=== PATIENT | male | born 1940 | race Caucasian/White ===

== ENCOUNTER → 2017-08-27 12:32 | Outpatient (CLI) | payer MEDICARE, OTHER, SELFPAY ==
[2017-08-14 08:43] VITALS: TEMP 36.6
--- NOTE | 2017-08-27 | DI.ECHO.S_ITS ---
[facility]---------+ [facility] +---------+ : : [address] : : : : [id number] : : : : Phone: [phone] Echocardiogram Report + + :Name: MIGUELANGEL CALLOWAY Study Date: 08/27/2017 Height: 65 in : :[facility] Exam Location: [facility] Weight: 237 lb : : Gender: Male BSA: 2.1 m2 : :: 1940 Age: 77 yrs BP: 138/85 mmHg: :Reason For Study: CHEST PAIN : : Performed By: Dm Perez : :Referring: FRANCESCA CULLEN : + + Interpretation Summary Technically limited study. Mild concentric left ventricular hypertrophy with ejection fraction 60-65%. Grade I diastolic dysfunction. There is a pacemaker lead in the right ventricle. Moderately dilated left atrium. Moderate to severe aortic stenosis. The peak aortic velocity is 3.7 m/sec. Mild to moderate aortic regurgitation. Severe mitral annular calcification. The mean pressure gradient of the mitral valve is estimated to be 4.3 mmHg. The mitral valve area is estimated to be 2.0 cm2. The right ventricular systolic pressure is estimated at 35 mmHg assuming a right atrial pressure of 3 mm Hg. There is a large left-sided pleural effusion. Mild-moderately enlarged ascending aorta. Comparison is made with the echocardiogram of 02/07/16, calcification of the aortic valve and mitral annulus has worsen. The severity of aortic stenosis and mitral stenosi could be underestimated due to techimically limited study. Procedure: A two-dimensional transthoracic echocardiogram with color flow and Doppler was performed. The study quality was technically limited. Comparison is made with the echocardiogram of 02/07/16. The patient has a paced rhythm. Left Ventricle: The left ventricle is normal in size. There is mild concentric left ventricular hypertrophy. The ejection fraction is estimated to be 60-65%. There are no focal wall motion abnormalities. Assessment of diastolic parameters indicates a relaxation abnormality of the left ventricle, consistent with normal filling pressures. Right Ventricle: There is a pacemaker lead in the right ventricle. The right ventricle is normal in size and function. Atria: The left atrium is moderately dilated. Right atrial size is normal. The interatrial septum is intact with no evidence for an atrial septal defect. Mitral Valve: There is severe mitral annular calcification. The mean pressure gradient of the mitral valve is estimated to be 4.3 mmHg. The mitral valve area is estimated to be 2.0 cm2. There is trace mitral regurgitation. Aortic Valve: The aortic valve is moderately calcified. There is moderate to severe aortic stenosis. The peak aortic velocity is 3.7 m/sec. The aortic valve mean gradient is 31 mmHg. There is mild to moderate aortic regurgitation. Tricuspid Valve: The tricuspid valve is normal in structure and function. There is trace tricuspid regurgitation. The right ventricular systolic pressure is estimated at 35 mmHg assuming a right atrial pressure of 3 mm Hg. Pulmonic Valve: The pulmonic valve is normal in structure and function. There is trace pulmonic regurgitation. Great Vessels: The aortic root is normal size. The ascending aorta is mild- moderately enlarged. The pulmonary artery is normal size. Pericardium/ Pleura There is no pericardial effusion. There is a large left- sided pleural effusion. MMode/2D Measurements & Calculations LVOT diam: 2.2 cm LA A2 area: 30.8 cm2 Ao root diam: 3.3 cm LA A4 area: 22.7 cm2 Aortic Jxn: 2.9 cm LA length (vol): 6.4 cm asc Aorta Diam: 4.0 cm LA vol: 92.0 ml Ao Arch Diam (Prox Trans): 2.8 cm LA vol index: 43.3 ml/m2 RA long axis: 5.1 cm RA area: 14.1 cm2 RA vol: 33.3 ml RA : 15.6 ml/m2 IVC diam: 1.5 cm Doppler Measurements & Calculations Ao V2 max: 372.0 cm/sec LVOT Max Sohail: 121.4 cm/sec Ao V2 mean: 253.9 cm/sec LV V1 max P.9 mmHg Ao max P.4 mmHg LV V1 VTI: 30.7 cm Ao mean P.5 mmHg ROSANNA(I,D): 1.3 cm2 Ao V2 VTI: 84.5 cm ROSANNA(V,D): 1.2 cm2 sev ratio: 0.36 ROSANNA indexed to BSA (cm^2/m^2): 0.62 MV E max sohail: 117.2 cm/sec TR max sohail: 283.4 cm/sec MV A max sohail: 151.7 cm/sec TR max P.1 mmHg MV E/A: 0.77 PA V2 max: 76.8 cm/sec Med Peak E' Sohail: 4.5 cm/sec PA V2 mean: 59.1 cm/sec E/E' med: 25.8 PA mean P.5 mmHg MV dec time: 0.36 sec PA pr(Accel): 31.6 mmHg MV P1/2t: 108.8 msec PA Accel Time: 0.11 sec MVA(VTI): 2.5 cm2 MV V2 mean: 98.0 cm/sec MV P1/2t max sohail: 117.5 cm/sec MV mean P.3 mmHg MVA(P1/2t): 2.0 cm2 MV V2 VTI: 45.1 cm Electronically signed by: Kosta Bledsoe on Reading Physician:08/27/2017 05:42 PM
--- NOTE | 2017-08-27 | DI.US.S_ITS ---
PROCEDURE: US CAROTID DOPPLER BI INDICATIONS: CHEST PAIN CENTAL RETINAL ARTERY OCCLUSION TECHNIQUE: Color and pulse Doppler interrogation was performed of both carotid systems, with image documentation and velocity measurements. COMPARISON: [facility], , US CAROTID DOPPLER, 04/22/2004, 13:44. FINDINGS: Stenosis calculations are based on SRU (Society of Radiologists in Ultrasound) criteria. Right side: Brachial blood pressure: 133/75 mm Hg. Common carotid artery peak systolic velocity: 61 cm/sec. Internal carotid artery peak systolic velocity: 63 cm/sec. Internal carotid artery end diastolic velocity: 14 cm/sec. External carotid artery peak systolic velocity: 77 cm/sec. ICA/CCA peak systolic ratio: 1.0. Calhoun scale imaging description: Mild scattered plaque. Percent internal carotid artery stenosis: Less than 50%. Vertebral artery: Flow direction is antegrade. Left side: Brachial blood pressure: 122/74 mm Hg. Common carotid artery peak systolic velocity: 74 cm/sec. Internal carotid artery peak systolic velocity: 59 cm/sec. Internal carotid artery end diastolic velocity: 13 cm/sec. External carotid artery peak systolic velocity: 75 cm/sec. ICA/CCA peak systolic ratio: 0.8. Calhoun scale imaging description: Umgi-[id number]-hyhthcuz scattered plaque. Percent internal carotid artery stenosis: Less than 50%. Vertebral artery: Flow direction is antegrade. IMPRESSION: Less than 50% bilateral internal carotid artery stenosis. Dictated by: Adria KHALIL Interpreted: Michael Soria MD on 08/27/2017 at 14:38 Approved by: Michael Soria M.D. on 08/27/2017 at 15:35
== END ==
PROVIDERS: PCP Family Medicine; Visit Provider Family Medicine
DX: R07.9 Chest pain, unspecified (principal); H34.9 Unspecified retinal vascular occlusion
CPT/HCPCS: 93306; 93880

== ENCOUNTER → 2017-09-03 11:00 | Outpatient (CLI) | payer MEDICARE, OTHER, SELFPAY ==
--- NOTE | 2017-09-03 | DI.RAD.S_ITS ---
PROCEDURE: XR CHEST 2V INDICATIONS: HEART FAILURE TECHNIQUE: 2 views of the chest were acquired. COMPARISON: [facility], CT, THORAX WITH CONTRAST, 05/11/2016, 8:53. [facility], CT, THORAX WITH CONTRAST, 02/24/2016, 13:21. [facility], CR, CHEST 2 VIEW, 02/11/2016, 10:32. [facility], , CHEST 2 VIEW, 08/06/2017, 10:23. FINDINGS: Surgical changes and devices: Right humeral arthroplasty and pacemaker unchanged. Lungs and pleura: There is persistent appearance of opacification within the left lower lung field as well as patchy areas in the right base. Overall appearance of increased pulmonary vascularity is present. It is noted that this has been unchanged compared to 08/06/17 but increased compared to CT chest of 05/11/16. Mediastinum: Mediastinal contours are normal. Heart size is enlarged. Bones and chest wall: No suspicious bony abnormalities. Soft tissues appear unremarkable. IMPRESSION: Persistent and increased left lower and right lower lobe opacities as above. While appearance could be related to chronic loculated effusions and underlying edema, mass lesion cannot be excluded, given the length of time that abnormality has persisted. As previously noted, CT chest with contrast is recommended for additional evaluation. Dictated by: Andreina Mcgrath M.D. on 09/03/2017 at 13:32 Approved by: Andreina Mcgrath M.D. on 09/03/2017 at 13:35
== END ==
PROVIDERS: PCP Family Medicine; Visit Provider Family Medicine
DX: I50.9 Heart failure, unspecified (principal)
CPT/HCPCS: 71046

== ENCOUNTER → 2017-09-25 10:12 | Outpatient (CLI) | payer MEDICARE, OTHER, SELFPAY ==
--- NOTE | 2017-09-25 | DI.CT.S_ITS ---
PROCEDURE: CT CHEST W CON INDICATIONS: CONGESTIVE HEART FAILURE. SHORTNESS OF BREATH TECHNIQUE: After the administration of intravenous contrast, 5 mm thick sections acquired from the pulmonary apices to the posterior costophrenic angles. 7 mm thick coronal and sagittal MIP reformats were acquired. For radiation dose reduction, the following was used: automated exposure control, adjustment of mA and/or kV according to patient size. COMPARISON: , CT, THORAX WITH CONTRAST, 05/11/2016, 8:53. , CR, XR CHEST 2V, 09/03/2017, 11:09. FINDINGS: Image quality: Excellent. Lungs and pleura: No acute air space opacities but there is progression of the basilar atelectasis associated with the enlarging left pleural effusion (now large). No pleural masses are found but there is slight pleural enhancement and thickening along the left effusion. Scant right effusion is present. 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 No pneumothorax. Central and peripheral airways are patent and generally normal in caliber but the left lower lobe bronchi appear mildly compressed by the chronic atelectasis. Mediastinum: Heart size is not significantly enlarged and pacemaking leads are present. Dystrophic calcification appears present within portions of the myocardium of the left ventricle. No pericardial effusion. There is stable appearing partially calcified mediastinal and hilar adenopathy by size criteria, presumably granulomatous in origin. Thoracic aorta and central pulmonary arteries are normal in size. Esophagus is normal in caliber. No hiatal hernia. Bones and chest wall: No suspicious bony lesions. No vertebral body compression fractures. No axillary or supraclavicular adenopathy by size criteria. Thyroid gland appears normal where well visualized. Abdomen: Visualized upper abdominal solid organs appear normal. Upper abdominal bowel loops are normal in caliber. Calcified gallstones within the gallbladder lumen noted. IMPRESSION: 1. Continued increase in the left pleural effusion, now large and with increased compressive atelectasis involving the left lung parenchyma. The effusion shows a subtle rim enhancement pattern, indicating exudative effusion, but no dominant mass is seen. 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 Thoracentesis for cytology may be warranted. 2. Cardiac pacemaking device and leads in normal position, partially calcified left ventricular myocardium. This presumably is dystrophic in origin. No sign of acute CHF at this time. 3. Granulomatous disease is the likely cause for stable appearing mild to moderate adenopathy involving the mediastinum and hilar lymph nodes, partially calcified. 4. Calcified gallstones are present within the gallbladder lumen, partially visualized, no acute cholecystitis suspected. Dictated by: Michael Soria M.D. on 09/25/2017 at 11:12 Approved by: Michael Soria M.D. on 09/25/2017 at 11:22
== END ==
PROVIDERS: PCP Family Medicine; Visit Provider Family Medicine
DX: I50.9 Heart failure, unspecified (principal); R06.02 Shortness of breath; J98.11 Atelectasis; J84.10 Pulmonary fibrosis, unspecified
CPT/HCPCS: 71260

== ENCOUNTER → 2017-12-26 08:23 | Outpatient (CLI) | payer MEDICARE, OTHER, SELFPAY ==
--- NOTE | 2017-12-26 08:26 | DI.RAD.S_ITS ---
PROCEDURE: XR CERVICAL SPINE 2V OR 3V INDICATIONS: CERVICALGIA/Heart failure, unspecified TECHNIQUE: 4 view(s) of the cervical spine were acquired. COMPARISON: None. FINDINGS: Bones: No fractures or dislocations to the T1 level. The lateral masses of C1 appear intact on the odontoid view. No suspicious bony lesions. Decreased intervertebral disc space and degenerative endplate changes are noted as well cervical spine. Bilateral facet hypertrophic changes also noted. Soft tissues: No prevertebral soft tissue swelling. IMPRESSION: Moderate degenerative disc disease throughout cervical spine. No acute compression fracture or traumatic spondylolisthesis. Dictated by: Phillip Encarnacion M.D. on 12/26/2017 at 11:39 Approved by: Phillip Encarnacion M.D. on 12/26/2017 at 11:50
--- NOTE | 2017-12-26 08:26 | DI.RAD.S_ITS ---
PROCEDURE: XR CHEST 2V INDICATIONS: CERVICALGIA/Heart failure, unspecified TECHNIQUE: 2 views of the chest were acquired. COMPARISON: [facility], CR, XR CHEST 2V, 09/03/2017, 11:09. FINDINGS: Surgical changes and devices: Left chest wall cardiac device position is unchanged. Lungs and pleura: Moderate left pleural effusion is seen, unchanged from previous study. There is pulmonary edema. Underlying left lower lobe infiltrate cannot be excluded. No gross pneumothorax. Mediastinum: Mediastinal contours are normal. Heart size is enlarged. Bones and chest wall: No suspicious bony abnormalities. Soft tissues appear unremarkable. IMPRESSION: Congestion and pulmonary edema. Persistent moderate left pleural effusion. No gross pneumothorax. Dictated by: Phillip Encarnacion M.D. on 12/26/2017 at 11:38 Approved by: Phillip Encarnacion M.D. on 12/26/2017 at 11:39
== END ==
PROVIDERS: PCP Family Medicine; Visit Provider Family Medicine
DX: M54.2 Cervicalgia (principal); I50.1 Left ventricular failure, unspecified; M50.30 Other cervical disc degeneration, unspecified cervical region
CPT/HCPCS: 71046; 72040

== ENCOUNTER 2018-03-25 12:07 | Observation (INO) | payer MEDICARE, OTHER, SELFPAY ==
[2018-03-25 12:17] VITALS: BP 142/90; PULSE 97; RESP 24; TEMP 36.3; O2SAT 96; BMI 35.2
[2018-03-25] MEDS: PANTOPRAZOLE 40 MG VIAL IV ×2 (12:38→22:00)
[2018-03-25 12:44] LABS: Add Manual Diff / Slide Review NO; Basophils Percent Auto 0.5 % (0-2); Eosinophils Percent Auto 1.3 % (2-4); Hematocrit 33.6 % (41-53); Hemoglobin 11.1 g/dL (13.5-17.5); Lymphocytes Percent Auto 10.8 % (25-40); Mean Corpuscular Hemoglobin 29.4 PG (26-34); Mean Corpuscular Volume 88.9 fL (80-100); Neutrophils Absolute Auto 5000 /uL (3000-5900); Neutrophils Percent Auto 76.4 % (50-75); Platelet Count 277 X10^3/uL (150-400); Red Blood Cell Count 3.78 X10^6/uL (4.5-5.9); Red Cell Distribution Width 14.5 % (11.6-14.8); White Blood Cell Count 6.6 X10^3/uL (4.5-11.0)
[2018-03-25 12:49] LABS: Alanine Aminotransferase 18 IU/L (21-72); Albumin 3.9 g/dL (3.5-5.0); Albumin Globulin Ratio 1.2 (1.0-2.8); Alkaline Phosphatase 75 U/L (38-126); Aspartate Aminotransferase 25 IU/L (17-59); BUN Creatinine Ratio 27.3 (6-22); Bilirubin Total 0.3 mg/dL (0.2-1.3); Blood Urea Nitrogen 30 mg/dL (9-20); Calcium 9.2 mg/dL (8.4-10.2); Carbon Dioxide 31 mmol/L (22-32); Chloride 98 mmol/L (98-107); Estimated Glomerular Filt Rate > 60.0 mL/min (>60); Globulin 3.3 g/dL (1.7-4.1); Glucose 111 mg/dL (80-110); HEMOLYSIS < 15 (0-50); Potassium 3.7 mmol/L (3.4-5.1); Sodium 144 mmol/L (137-145); Total Protein 7.2 g/dL (6.3-8.2)
[2018-03-25 12:54] LABS: INR 1.2 (0.9-1.3); Prothrombin Time 13.6 SECONDS (10.1-12.7)
[2018-03-25 12:57] LABS: PTT Partial Thromboplastin Tim 31 SECONDS (26.4-36.2)
--- NOTE | 2018-03-25 12:58 | ED.GIBLEED ---
HPI - GI Bleed General Chief complaint: GI Bleed Stated complaint: states My colon sprung a leak Time Seen by Provider: 03/25/18 12:15 Source: patient Mode of arrival: ambulatory Limitations: no limitations History of Present Illness HPI Narrative: 77M nonsmoker presents to the emergency department with dark and tarry stools today. Patient has a history asbestos exposure and colon cancer with 2 prior GI bleeds that were diverticular in nature. He has no reports of bloody vomit and is not dizzy nor weak or lightheaded. He is a bit short of breath but is unable to tell if that is due to his chronic lung problems or as a consequence his presumed GI bleed. He had some constipation a few days ago and presents today melena. Patient has no history of significant alcohol abuse, denies the use of NSAIDs but does take a baby aspirin daily. MD complaint: melena Onset (ago): hour(s) Severity: moderate Relieving factors: none Exacerbating factors: none Context: history of GI bleed (2x, both diverticular in nature) Associated symptoms: denies other symptoms Treatments Prior to Arrival: none Related Data Home Medications Medication Instructions Recorded Confirmed multivitamin 1 tab PO DAILY #0 04/13/11 03/25/18 fluticasone-salmeterol [Advair 1 puff INHALATION PRN #0 01/17/12 03/25/18 Diskus] clobetasol 1 applic TOPICAL DIRECTED 08/14/17 03/25/18 furosemide 80 mg PO DAILY 08/14/17 03/25/18 promethazine-codeine 5 ml PO PRN PRN 08/14/17 03/25/18 spironolactone 1 dose PO DIRECTED 08/14/17 03/25/18 terazosin 2 mg PO DAILY 03/25/18 03/25/18 Allergies Allergy/AdvReac Type Severity Reaction Status Date / Time No Known Drug Allergies Allergy Verified 08/14/17 10:39 Review of Systems Review of Systems All systems reviewed & are unremarkable except as noted in HPI and below Constitutional Denies chills, Denies fever(s), Denies lethargy and Denies weakness Eyes Denies change in vision, Denies eye discharge, Denies irritation and Denies loss of vision ENT Ears, Nose, Mouth, and Throat: Denies change in voice, Denies neck pain and Denies sore throat Cardiovascular Denies chest pain, Denies irregular heart rhythm, Denies lightheadedness, Denies palpitations, Denies dyspnea, Denies dyspnea on exertion and Denies orthopnea Respiratory Denies cough, Denies dyspnea, Denies dyspnea on exertion and Denies wheezing Gastrointestinal Gastrointestinal: Denies abdominal pain, Reports melena, Denies change in bowel habits, Denies diarrhea, Denies nausea and Denies vomiting Genitourinary Denies hematuria, Denies flank pain, Denies urinary incontinence and Denies urinary urgency Musculoskeletal Denies neck pain Integumentary/Breasts Denies pruritus, Denies erythema, Denies rash and Denies wounds Neurologic Denies confusion, Denies loss of vision and Denies weakness Psychiatric Denies anxiety, Denies confusion, Denies depression, Denies homicidal ideation and Denies suicidal ideation Endocrine Denies palpitations Hematologic/Lymphatic Denies easy bruising Allergic/Immunologic Denies wheezing [facility] Social History Smoking Status: Never smoker Exam Narrative Exam Narrative: GENERAL: 77M in no obvious significant distress HEAD: Atraumatic. Normocephalic. No temporal or scalp tenderness. EYES: Pupils equal round and reactive. Extraocular motions intact. No scleral icterus. No injection or drainage. ENT: Nose without bleeding, purulent drainage or septal hematoma. Throat without erythema, tonsillar hypertrophy or exudate. Uvula midline. Airway patent. NECK: Trachea midline. No JVD or lymphadenopathy. Supple, nontender, no meningeal signs. CARDIOVASCULAR: Regular rate and rhythm without murmurs, gallops, or rubs. RESPIRATORY: Clear to auscultation. Breath sounds equal bilaterally. No wheezes, rales, or rhonchi. GASTROINTESTINAL: Soft pretuberant abdomen with increased bowel sounds x4 quadrants RECTAL. No fissure, hemorrhoids. Melena noted, Heme+ EXTREMITIES: No clubbing, cyanosis, or edema. No joint tenderness, effusion, or edema noted. BACK: Nontender without deformity or crepitance. No flank tenderness. NEURO: AOx3. SKIN: No rash or erythema. Initial Vital Signs Initial Vital Signs: Vital Signs Temperature 97.4 F L 03/25/18 12:17 Pulse Rate 97 H 03/25/18 12:17 Respiratory Rate 24 03/25/18 12:17 Blood Pressure 142/90 H 03/25/18 12:17 Pulse Oximetry 96 03/25/18 12:17 Course Orders Ordered: ED Orders 03/25/18 12:21 Complete Blood Count AUTO DIFF Stat Comprehensive Metabolic Panel Stat Partial Thromboplastin Time Stat Prothrombin Time INR Stat Type and Screen Stat Discontinued Medications Ondansetron HCl (Zofran) 4 mg IV NOW ONE Stop: 03/25/18 12:16 Last Admin: 03/25/18 12:38 Dose: Not Given Pantoprazole Sodium (Protonix) 40 mg IV NOW ONE Stop: 03/25/18 12:16 Last Admin: 03/25/18 12:38 Dose: 40 mg Consultations Consultation #1: Call to Dr. Sullivan whom is happy to be involved in patient care as customer care voice consultant and requests official consult from hospitalist. Consultation #2: Hospitalist happy to accept Vital Signs - 8 hr 03/25/18 12:17 03/25/18 13:06 Temperature 97.4 F L Pulse Rate 97 H 89 Respiratory Rate 24 22 Blood Pressure 142/90 H Blood Pressure [Left Arm] 123/64 Pulse Oximetry 96 100 MDM - GI Bleed Lab Data Result diagrams: 03/25/18 12:21 03/25/18 12:21 Lab Results 03/25/18 03/25/18 03/25/18 Range/Units 12:21 12:21 12:21 WBC 6.6 (4.5-11.0) X10^3/uL RBC 3.78 L (4.5-5.9) X10^6/uL Hgb 11.1 L (13.5-17.5) g/dL Hct 33.6 L (41-53) % MCV 88.9 (80-100) fL MCH 29.4 (26-34) PG MCHC 33.0 (30-36) % RDW 14.5 (11.6-14.8) % Plt Count 277 (150-400) X10^3/uL Neut % (Auto) 76.4 H (50-75) % Lymph % (Auto) 10.8 L (25-40) % Bee % (Auto) 11.0 (3-14) % Eos % (Auto) 1.3 L (2-4) % Baso % (Auto) 0.5 (0-2) % Neut # (Auto) 5000 (7071-9471) /uL PT 13.6 H (10.1-12.7) SECONDS INR 1.2 (0.9-1.3) APTT 31 (26.4-36.2) SECONDS Sodium 144 (137-145) mmol/L Potassium 3.7 (3.4-5.1) mmol/L Chloride 98 (98-107) mmol/L Carbon Dioxide 31 (22-32) mmol/L BUN 30 H (9-20) mg/dL Creatinine 1.10 (0.66-1.25) mg/dL Estimated GFR > 60.0 (>60) mL/min BUN/Creatinine Ratio 27.3 H (6-22) Glucose 111 H (80-110) mg/dL Calcium 9.2 (8.4-10.2) mg/dL Total Bilirubin 0.3 (0.2-1.3) mg/dL AST 25 (17-59) IU/L ALT 18 L (21-72) IU/L Alkaline Phosphatase 75 (38-126) U/L Total Protein 7.2 (6.3-8.2) g/dL Albumin 3.9 (3.5-5.0) g/dL Globulin 3.3 (1.7-4.1) g/dL Albumin/Globulin Ratio 1.2 (1.0-2.8) Discharge Plan Departure Patient Disposition: Admitted As Inpatient Clinical Impression: Acute upper gastrointestinal bleeding
[2018-03-25 13:06] VITALS: BP 123/64; PULSE 89; RESP 22; O2SAT 100
--- NOTE | 2018-03-25 13:22 | ED_ITS ---
HPI - GI Bleed General Chief complaint: GI Bleed Stated complaint: states My colon sprung a leak Time Seen by Provider: 03/25/18 12:15 Source: patient Mode of arrival: ambulatory Limitations: no limitations History of Present Illness HPI Narrative: 77M nonsmoker presents to the emergency department with dark and tarry stools today. Patient has a history asbestos exposure and colon cancer with 2 prior GI bleeds that were diverticular in nature. He has no reports of bloody vomit and is not dizzy nor weak or lightheaded. He is a bit short of breath but is unable to tell if that is due to his chronic lung problems or as a consequence his presumed GI bleed. He had some constipation a few days ago and presents today melena. Patient has no history of significant alcohol abuse , denies the use of NSAIDs but does take a baby aspirin daily. MD complaint: melena Onset (ago): hour(s) Severity: moderate Relieving factors: none Exacerbating factors: none Context: history of GI bleed (2x, both diverticular in nature) Associated symptoms: denies other symptoms Treatments Prior to Arrival: none Related Data Home Medications Medication Instructions Recorded Confirmed multivitamin 1 tab PO DAILY #0 04/13/11 03/25/18 fluticasone-salmeterol [Advair 1 puff INHALATION PRN #0 01/17/12 03/25/18 Diskus] clobetasol 1 applic TOPICAL DIRECTED 08/14/17 03/25/18 furosemide 80 mg PO DAILY 08/14/17 03/25/18 promethazine-codeine 5 ml PO PRN PRN 08/14/17 03/25/18 spironolactone 1 dose PO DIRECTED 08/14/17 03/25/18 terazosin 2 mg PO DAILY 03/25/18 03/25/18 Allergies Allergy/AdvReac Type Severity Reaction Status Date / Time No Known Drug Allergies Allergy Verified 08/14/17 10:39 Review of Systems Review of Systems All systems reviewed & are unremarkable except as noted in HPI and below Constitutional Denies chills, Denies fever(s), Denies lethargy and Denies weakness Eyes Denies change in vision, Denies eye discharge, Denies irritation and Denies loss of vision ENT Ears, Nose, Mouth, and Throat: Denies change in voice, Denies neck pain and Denies sore throat Cardiovascular Denies chest pain, Denies irregular heart rhythm, Denies lightheadedness, Denies palpitations, Denies dyspnea, Denies dyspnea on exertion and Denies orthopnea Respiratory Denies cough, Denies dyspnea, Denies dyspnea on exertion and Denies wheezing Gastrointestinal Gastrointestinal: Denies abdominal pain, Reports melena, Denies change in bowel habits, Denies diarrhea, Denies nausea and Denies vomiting Genitourinary Denies hematuria, Denies flank pain, Denies urinary incontinence and Denies urinary urgency Musculoskeletal Denies neck pain Integumentary/Breasts Denies pruritus, Denies erythema, Denies rash and Denies wounds Neurologic Denies confusion, Denies loss of vision and Denies weakness Psychiatric Denies anxiety, Denies confusion, Denies depression, Denies homicidal ideation and Denies suicidal ideation Endocrine Denies palpitations Hematologic/Lymphatic Denies easy bruising Allergic/Immunologic Denies wheezing [facility] Social History Smoking Status: Never smoker Exam Narrative Exam Narrative: GENERAL: 77M in no obvious significant distress HEAD: Atraumatic. Normocephalic. No temporal or scalp tenderness. EYES: Pupils equal round and reactive. Extraocular motions intact. No scleral icterus. No injection or drainage. ENT: Nose without bleeding, purulent drainage or septal hematoma. Throat without erythema, tonsillar hypertrophy or exudate. Uvula midline. Airway patent. NECK: Trachea midline. No JVD or lymphadenopathy. Supple, nontender, no meningeal signs. CARDIOVASCULAR: Regular rate and rhythm without murmurs, gallops, or rubs. RESPIRATORY: Clear to auscultation. Breath sounds equal bilaterally. No wheezes , rales, or rhonchi. GASTROINTESTINAL: Soft pretuberant abdomen with increased bowel sounds x4 quadrants RECTAL. No fissure, hemorrhoids. Melena noted, Heme+ EXTREMITIES: No clubbing, cyanosis, or edema. No joint tenderness, effusion, or edema noted. BACK: Nontender without deformity or crepitance. No flank tenderness. NEURO: AOx3. SKIN: No rash or erythema. Initial Vital Signs Initial Vital Signs: Vital Signs Temperature 97.4 F L 03/25/18 12:17 Pulse Rate 97 H 03/25/18 12:17 Respiratory Rate 24 03/25/18 12:17 Blood Pressure 142/90 H 03/25/18 12:17 Pulse Oximetry 96 03/25/18 12:17 Course Orders Ordered: ED Orders 03/25/18 12:21 Complete Blood Count AUTO DIFF Stat Comprehensive Metabolic Panel Stat Partial Thromboplastin Time Stat Prothrombin Time INR Stat Type and Screen Stat Discontinued Medications Ondansetron HCl (Zofran) 4 mg IV NOW ONE Stop: 03/25/18 12:16 Last Admin: 03/25/18 12:38 Dose: Not Given Pantoprazole Sodium (Protonix) 40 mg IV NOW ONE Stop: 03/25/18 12:16 Last Admin: 03/25/18 12:38 Dose: 40 mg Consultations Consultation #1: Call to Dr. Sullivan whom is happy to be involved in patient care as hr business partner consultant and requests official consult from hospitalist. Consultation #2: Hospitalist happy to accept Vital Signs - 8 hr 03/25/18 12:17 03/25/18 13:06 Temperature 97.4 F L Pulse Rate 97 H 89 Respiratory Rate 24 22 Blood Pressure 142/90 H Blood Pressure [Left Arm] 123/64 Pulse Oximetry 96 100 MDM - GI Bleed Lab Data Result diagrams: 03/25/18 12:21 03/25/18 12:21 Lab Results 03/25/18 03/25/18 03/25/18 Range/Units 12:21 12:21 12:21 WBC 6.6 (4.5-11.0) X10^3/uL RBC 3.78 L (4.5-5.9) X10^6/uL Hgb 11.1 L (13.5-17.5) g/dL Hct 33.6 L (41-53) % MCV 88.9 (80-100) fL MCH 29.4 (26-34) PG MCHC 33.0 (30-36) % RDW 14.5 (11.6-14.8) % Plt Count 277 (150-400) X10^3/uL Neut % (Auto) 76.4 H (50-75) % Lymph % (Auto) 10.8 L (25-40) % [place] % (Auto) 11.0 (3-14) % Eos % (Auto) 1.3 L (2-4) % Baso % (Auto) 0.5 (0-2) % Neut # (Auto) 5000 (7854-0314) /uL PT 13.6 H (10.1-12.7) SECONDS INR 1.2 (0.9-1.3) APTT 31 (26.4-36.2) SECONDS Sodium 144 (137-145) mmol/L Potassium 3.7 (3.4-5.1) mmol/L Chloride 98 (98-107) mmol/L Carbon Dioxide 31 (22-32) mmol/L BUN 30 H (9-20) mg/dL Creatinine 1.10 (0.66-1.25) mg/dL Estimated GFR > 60.0 (>60) mL/min BUN/Creatinine Ratio 27.3 H (6-22) Glucose 111 H (80-110) mg/dL Calcium 9.2 (8.4-10.2) mg/dL Total Bilirubin 0.3 (0.2-1.3) mg/dL AST 25 (17-59) IU/L ALT 18 L (21-72) IU/L Alkaline Phosphatase 75 (38-126) U/L Total Protein 7.2 (6.3-8.2) g/dL Albumin 3.9 (3.5-5.0) g/dL Globulin 3.3 (1.7-4.1) g/dL Albumin/Globulin Ratio 1.2 (1.0-2.8) Discharge Plan Departure Patient Disposition: Admitted As Inpatient Clinical Impression: Acute upper gastrointestinal bleeding
[2018-03-25 13:50] VITALS: BP 129/67; PULSE 80; RESP 16; TEMP 36.1; O2SAT 97
--- NOTE | 2018-03-25 14:59 | PC.NURSE ---
pt arrived to floor via stretcher from ER. Pt is a&o able to make needs known. Denies any pain or discomfort. 1 SBA transfer from stretcher to bed. c/o feeling light headed, VSS, 96%RA, denies any nausea or GI upset. oriented to room and call light. Bed alarm on at this time.
[2018-03-25 15:00] VITALS: BMI 34.6
[2018-03-25 16:05] VITALS: BP 133/79; PULSE 74; RESP 14; TEMP 36.6; O2SAT 97
[2018-03-25] MEDS: SODIUM CHLORIDE 0.9% 1,000 ML 100 ML IV (16:11)
--- NOTE | 2018-03-25 17:06 | P.HP_ITS ---
History of Present Illness Date Patient Seen: 03/25/18 Time Patient Seen: 16:52 Chief complaint: states My colon sprung a leak Narrative: PATIENT WITH A PMH SIGNIFICANT FOR HTN, COMPLETE HEART BLOCK S/P AICD PLACEMENT, PROSTATE CA, AND HLD PRESENTED TO THE ED WITH REPORT OF BLACK BLOODY MATERIAL PER ECTUM HE STATED THAT THIS HAPPENED THIS AM AND DUE TO HIS PREVIOUS HX, HE CAME TO THE ED FOR FURTHER ASSESSMENT HE REPORTED A COLONOSCOPY IN 2001 WITH POLYPS WELL A REPEAT 5 YEARS LATER WHICH WAS WITHOUT ANY SIGNIFICANT FINDINGS DENIED ANY SIGNIFICANT WT LOSS OR GAIN NO RECENT ILLNESS OR CHANGE TO HIS MEDS NO OTHER COMPLAINTS SUCH N/D/DIARRHEA OR CONSTIPATIONS Patient History Medical History Asbestos pleurisy (Acute) Complete heart block (Acute) HLD (hyperlipidemia) (Acute) HTN (hypertension) (Acute) Prostate CA (Acute) Surgical History AICD (automatic cardioverter/defibrillator) present (Acute) H/O prostatectomy (Acute) Family & Social History Family History: Reviewed 03/25/18 by Swathi Osullivan DO Safety & Behavioral: Feels Safe in Current Yes Environment Tobacco & Substance use: Smoking Status Never smoker alcohol intake frequency 0-2 drinks per day Substance Use Type does not use Meds Home Medications Medication Instructions Recorded Confirmed Type multivitamin 1 tab PO DAILY #0 04/13/11 03/25/18 History fluticasone-salmeterol [Advair 1 puff INHALATION PRN #0 01/17/12 03/25/18 History Diskus] clobetasol 1 applic TOPICAL DIRECTED 08/14/17 03/25/18 History furosemide 80 mg PO DAILY 08/14/17 03/25/18 History promethazine-codeine 5 ml PO PRN PRN 08/14/17 03/25/18 History spironolactone 1 dose PO DIRECTED 08/14/17 03/25/18 History terazosin 2 mg PO DAILY 03/25/18 03/25/18 History Allergies Allergy/AdvReac Type Severity Reaction Status Date / Time No Known Drug Allergies Allergy Verified 08/14/17 10:39 Review of Systems Review of Systems All systems reviewed & are unremarkable except as noted in HPI and below Exam Vital Signs (past 8 hours): - 03/25/18 12:17 03/25/18 13:06 03/25/18 13:50 Temperature 97.4 F L 97.0 F L Pulse Rate 97 H 89 80 Respiratory Rate 24 22 16 Blood Pressure 142/90 H 129/67 Blood Pressure [Left Arm] 123/64 Pulse Oximetry 96 100 97 03/25/18 16:05 Temperature 97.9 F Pulse Rate 74 Respiratory Rate 14 Blood Pressure 133/79 Blood Pressure [Left Arm] Pulse Oximetry 97 Oxygen Delivery Method Room Air Narrative Exam Narrative: NO ACUTE DISTRESS. PATIENT IS ALERT ORIENTED X3. VITAL SIGNS STABLE HEAD ATRAUMATIC NORMOCEPHALIC NECK : SUPPLE WITHOUT ADENOPATHY NO CAROTID BRUITS EYE: EOMI, PERRLA, NORMAL CONJUNCTIVA; NO JAUNDICE CHEST: REGULAR RATE. NO RUBS. PMI IS NON DISPLACED. NO MURMURS; NORMAL S1- S2 PULMONARY: DECREASED BS OVER THE BASES. MILD BIBASILAR CRACKLES NOTED; NO INCREASED DULLNESS TO PERCUSSION ABDOMEN: SOFT. NONTENDER. NON DISTENDED. OBESES; BOWEL SOUNDS ARE PRESENT IN ALL 4 QUADRANTS. NO MASS. RECTAL EXAM DEFERRED EXTREMITIES: NO EDEMA.. NO CYANOSIS CLUBBING NOTED. NEURO: CRANIAL NERVES 2-12 GROSSLY INTACT. NO FOCAL NEUROLOGICAL DEFICIT NOTED. MSK: NORMAL RANGE OF MOTION FOR AGE. NO JOINT EFFUSION. SKIN: NORMAL FOR ETHNICITY; NO ECCHYMOSIS. NO LESION. GOOD TURGOR.; NO RASHES : NORMAL EXTERNAL GENITALIA. PSYCH : APPROPRIATE MOOD AND AFFECT. ALERT AWAKE ORIENTED X3 Objective Labs Result Diagrams: 03/25/18 12:21 03/25/18 12:21 Labs: Laboratory Results - last 24 hr 03/25/18 03/25/18 03/25/18 12:21 12:21 12:21 WBC 6.6 RBC 3.78 L Hgb 11.1 L Hct 33.6 L MCV 88.9 MCH 29.4 MCHC 33.0 RDW 14.5 Plt Count 277 Neut % (Auto) 76.4 H Lymph % (Auto) 10.8 L [place] % (Auto) 11.0 Eos % (Auto) 1.3 L Baso % (Auto) 0.5 Neut # (Auto) 5000 PT 13.6 H INR 1.2 APTT 31 Sodium 144 Potassium 3.7 Chloride 98 Carbon Dioxide 31 BUN 30 H Creatinine 1.10 Estimated GFR > 60.0 BUN/Creatinine Ratio 27.3 H Glucose 111 H Calcium 9.2 Total Bilirubin 0.3 AST 25 ALT 18 L Alkaline Phosphatase 75 Total Protein 7.2 Albumin 3.9 Globulin 3.3 Albumin/Globulin Ratio 1.2 Blood Type Antibody Screen 03/25/18 12:21 WBC RBC Hgb Hct MCV MCH MCHC RDW Plt Count Neut % (Auto) Lymph % (Auto) [place] % (Auto) Eos % (Auto) Baso % (Auto) Neut # (Auto) PT INR APTT Sodium Potassium Chloride Carbon Dioxide BUN Creatinine Estimated GFR BUN/Creatinine Ratio Glucose Calcium Total Bilirubin AST ALT Alkaline Phosphatase Total Protein Albumin Globulin Albumin/Globulin Ratio Blood Type A Positive Antibody Screen Negative Assessment & Plan Plan: Assessment/Plan Narrative: IMPRESSION AND PLAN POSS ACUTE VS CHONIC GI BLOOD LOSS; SURGERY IS ON BOARD; EGD VS COLONOSCOPY INDICATED; HH Q 6 HR TO FOLLOW; IVF; NPO FOR NOW; ADDITIONAL MANAGEMENT INDICATED OBESITY; OUTPATIENT MANAGEEMNT ; LIFESTYLE CHANGES RECOMMENDED ELEVATED BUN; COULD BE RELATED TO GI BLEED; RENAL FCT APPEARS AT BASELINE; MONITOR FOR NOW HTN PER HX; PRN MEDS; MANAGE INDICATED COMPLETE HB PER HX; KEEP ON TELE AT ALL TIMES; EKD INDICATED; ADDITIONAL MANAGEMENT INDICATED POSS ASBESTOS EXPOSURE PER HX; MONITOR CLOSELY; DUONEBS AND HOME MEDS ORDERED DURATION: 24 HRS LIKELY Time Spent With Patient Time with patient: Greater than 35 minutes
[2018-03-25 20:30] VITALS: BP 143/94; PULSE 83; RESP 17; TEMP 36.4; O2SAT 96
[2018-03-25 20:37] LABS: Hematocrit 32.3 % (41-53); Hemoglobin 10.8 g/dL (13.5-17.5)
[2018-03-26] VITALS (7 sets, daily range): BP systolic 117–127; BP diastolic 63–78; PULSE 77–82; RESP 16–19; TEMP 36.4–36.6; O2SAT 94–97
[2018-03-26] MEDS: SODIUM CHLORIDE 0.9% 1,000 ML 50 ML IV (02:07)
[2018-03-26] MEDS: ONDANSETRON 4 MG/2 ML INJ IV (06:45)
--- NOTE | 2018-03-26 07:53 | PC.NURSE ---
Addendum entered by Aurora Soliz R.N. 03/26/18 12:34: pt sitting up in chair at bedside, denies any pain or discomfort. denies any dizziness or lightheaded, is eating lunch. Original Note: Addendum entered by Aurora Soliz R.N. 03/26/18 11:19: pt is SL at this time. Original Note: Addendum entered by Aurora Soliz R.N. 03/26/18 10:59: pt continues to denies any nausea or GI upset diet upgraded. Original Note: Addendum entered by Aurora Soliz R.N. 03/26/18 09:30: received verbal order from monty for clear liquids and advance as tolerated. Pt received clear liquids for breakfast and tolerating without difficulty Original Note: Day shift Pt is sitting on side of bed, is A&O able to make needs known. Denies any pain or discomfort. C/o SOB but states this is his baseline and that at home he sits up or in his chair most of the day and at night because he can not tolerate laying flat. Oxygen in 95%RA. No further nausea states that he feels its hunger pains. IV fluids infusing per order. Tele in place with vpace rate 81. Call light within reach and bed alarm in place.
[2018-03-26] MEDS: PANTOPRAZOLE 40 MG VIAL IV (07:57)
[2018-03-26 08:17] LABS: Hematocrit 32.4 % (41-53); Hemoglobin 10.9 g/dL (13.5-17.5)
--- NOTE | 2018-03-26 10:32 | P.DS_ITS ---
History of Present Illness Chief complaint: states My colon sprung a leak Narrative: PATIENT WITH A PMH SIGNIFICANT FOR HTN, COMPLETE HEART BLOCK S/P AICD PLACEMENT, PROSTATE CA, AND HLD PRESENTED TO THE ED WITH REPORT OF BLACK BLOODY MATERIAL PER ECTUM HE STATED THAT THIS HAPPENED THIS AM AND DUE TO HIS PREVIOUS HX, HE CAME TO THE ED FOR FURTHER ASSESSMENT HE REPORTED A COLONOSCOPY IN 2001 WITH POLYPS WELL A REPEAT 5 YEARS LATER WHICH WAS WITHOUT ANY SIGNIFICANT FINDINGS DENIED ANY SIGNIFICANT WT LOSS OR GAIN NO RECENT ILLNESS OR CHANGE TO HIS MEDS NO OTHER COMPLAINTS SUCH N/D/DIARRHEA OR CONSTIPATIONS Discharge Providers Date of admission: 03/25/18 13:22 Primary care physician: Jaime Hayes MD Discharge provider: Swathi Osullivan DO Discharge Date: 03/26/18 Summary Discharge Diagnosis: ACUTE RECTAL BLEEDING; RESOLVED ; HH STABLE; COLONOSCOPY OUTPATIENT ASBESTOS EXPOSURE; OUTPATIENT MANAGEMENT HTN PER HX OBESITY PLEURAL EFFUSION W/O S/S OF RESP FAILURE POSS VENOUS STASIS; ON DIURETICS; KAYLIN HOSE TO BE WORN AT ALL TIMES DURING DAYTIME PROSTATE CA PER HX Hospital Course: - PATIENT ADMITTED WITH REPORTED BLOOD PER RECTUME - PATIENT ADMITTED TODAY THAT HE DIS HAVE A SHORT PERIOD OF CONSTIPATION LAST WEEK - HE TOOK SOME LAXATIVE AFTER A FEW DAYS AND GOT GOOD RESULTS - THE BLOOD WHICH WAS SEEN IN HIS STOOL WAS NOTED AFTER THE LAXATIVE STARTED TO WORK - SINCE ADMITTED , NO FURTHER REPORTED BLOOD IN THE RECTUM - HIS HH IS STABLE WITHOUT SIGNIFICANT DROP; THE SLIGHT DROP SEEN WAS LIKELY DUE TO HEMODILUTION - PATIENT GILL PO WELL; HE WOULD BE DC TO HOME TODAY - HE WILL FOLLOW UP WITH HIS PCP IN 3-7 DAYS - HE COULD BE REFERRED TO GI FOR ENDOSCOPIC EVAL INDICATED THEN Status at Discharge Cognitive/behavioral status at discharge: STABLE AND BASELINE TO HOME Functional status at discharge: independent ambulation Overall status at discharge: patient is back to baseline Time Spent with Patient Greater than 30 minutes Exam Vital Signs (past 8 hours): - 03/26/18 05:00 03/26/18 07:32 03/26/18 07:45 Temperature 97.9 F 97.5 F L Pulse Rate 81 82 Respiratory Rate 18 16 Blood Pressure 127/64 117/64 Pulse Oximetry 95 94 95 Oxygen Delivery Method Room Air Oxygen Flow Rate 0 Narrative Exam Narrative: NO ACUTE DISTRESS. PATIENT IS ALERT ORIENTED X3. VITAL SIGNS STABLE HEAD ATRAUMATIC NORMOCEPHALIC NECK : SUPPLE WITHOUT ADENOPATHY NO CAROTID BRUITS EYE: EOMI, PERRLA, NORMAL CONJUNCTIVA; NO JAUNDICE CHEST: REGULAR RATE. NO RUBS. PMI IS NON DISPLACED. NO MURMURS; NORMAL S1- S2 PULMONARY: DECREASED BS OVER THE BASES. MILD BIBASILAR CRACKLES NOTED; NO INCREASED DULLNESS TO PERCUSSION ABDOMEN: SOFT. NONTENDER. NON DISTENDED. OBESES; BOWEL SOUNDS ARE PRESENT IN ALL 4 QUADRANTS. NO MASS. RECTAL EXAM DEFERRED EXTREMITIES: NO EDEMA.. NO CYANOSIS CLUBBING NOTED. NEURO: CRANIAL NERVES 2-12 GROSSLY INTACT. NO FOCAL NEUROLOGICAL DEFICIT NOTED. MSK: NORMAL RANGE OF MOTION FOR AGE. NO JOINT EFFUSION. SKIN: NORMAL FOR ETHNICITY; NO ECCHYMOSIS. NO LESION. GOOD TURGOR.; NO RASHES : NORMAL EXTERNAL GENITALIA. PSYCH : APPROPRIATE MOOD AND AFFECT. ALERT AWAKE ORIENTED X3 Objective Labs Result Diagrams: 03/26/18 08:11 03/25/18 12:21 Labs: Laboratory Results - last 24 hr 03/25/18 03/25/18 03/25/18 12:21 12:21 12:21 WBC 6.6 RBC 3.78 L Hgb 11.1 L Hct 33.6 L MCV 88.9 MCH 29.4 MCHC 33.0 RDW 14.5 Plt Count 277 Neut % (Auto) 76.4 H Lymph % (Auto) 10.8 L [place] % (Auto) 11.0 Eos % (Auto) 1.3 L Baso % (Auto) 0.5 Neut # (Auto) 5000 PT 13.6 H INR 1.2 APTT 31 Sodium 144 Potassium 3.7 Chloride 98 Carbon Dioxide 31 BUN 30 H Creatinine 1.10 Estimated GFR > 60.0 BUN/Creatinine Ratio 27.3 H Glucose 111 H Calcium 9.2 Total Bilirubin 0.3 AST 25 ALT 18 L Alkaline Phosphatase 75 Total Protein 7.2 Albumin 3.9 Globulin 3.3 Albumin/Globulin Ratio 1.2 Blood Type Antibody Screen 03/25/18 03/25/18 03/26/18 12:21 20:20 08:11 WBC RBC Hgb 10.8 L 10.9 L Hct 32.3 L 32.4 L MCV MCH MCHC RDW Plt Count Neut % (Auto) Lymph % (Auto) [place] % (Auto) Eos % (Auto) Baso % (Auto) Neut # (Auto) PT INR APTT Sodium Potassium Chloride Carbon Dioxide BUN Creatinine Estimated GFR BUN/Creatinine Ratio Glucose Calcium Total Bilirubin AST ALT Alkaline Phosphatase Total Protein Albumin Globulin Albumin/Globulin Ratio Blood Type A Positive Antibody Screen Negative Discharge Plan Discharge Plan Patient Disposition: Home Discharge comment: DC HOME IF GILL PO WELL AND NO BLOOD PER RECTUM THIS PM ACT GILL CARDIAC DIET F/U WITH PCP AND GI 3-10 DAYS Discharge Med Rec/Prescriptions Prescriptions: Continue multivitamin Tablet 1 tab PO DAILY Qty: 0 RF: 0 fluticasone-salmeterol [Advair Diskus] 100 MCG/50 MCG blister with device 1 puff Inhalation PRN Qty: 0 RF: 0 terazosin 2 mg capsule 2 mg PO DAILY RF: 0 aspirin 325 mg Tablet 325 mg PO TID RF: 0 furosemide 40 mg Tablet 80 mg PO DAILY RF: 0 promethazine-codeine 6.25-10 mg/5 mL Syrup 5 ml PO PRN PRN (Reason: Cough) RF: 0 spironolactone 50 mg Tablet 1 dose PO DIRECTED RF: 0 clobetasol 0.05 % Cream 1 applic Topical DIRECTED RF: 0 Follow up/Referrals: Jaime Hayes MD [Primary Care Provider] - (*appt:03/29 @ 9:00 w/dr hayes [phone]-per dr hayes office they will evaluate for reguest of gi md referal) Provider Discharge Instructions Diet: Diet as Tolerated, Low-fat and Low-cholesterol Skin/Wound/Dressing Care Report to your healthcare provider any signs of infection, such as:: chills, fever, night sweats, increased pain, unusual drainage and unusual redness Visit Report/Discharge Packet Visit Report Forms: Stroke Signs & Symptoms Discharge Data Primary Care Provider: Jaime Hayes Attending Provider: Swathi Osullivan Admit Date/Time: 03/25/18 13:22
[2018-03-26] MEDS: MULTIVITAMIN 1 TABLET 1 TAB PO (11:02)
[2018-03-26] MEDS: ASPIRIN 325 MG TABLET PO ×2 (11:02→14:39)
[2018-03-26] MEDS: TERAZOSIN 1 MG CAPSULE 2 MG PO (11:17)
--- NOTE | 2018-03-26 14:06 | CM.DANOTE ---
Discharge Planning/Care Management DCP: assessment: case received, EMR reviewed and d/c order to home noted by Dr. Hernández. Spoke with RN Aurora who clarified that pt MIGHT d/c later today. The hospitalist has spoken with her and wishes to watch the patient while his diet advances to see if he tolerates this. He also wants pt to have a BM and a check of same to make sure no red blood noted. If no BM by 1500 then pt will be given a suppository. If all of this is not completed in timely way pt will likely stay overnight. Met then with pt and introduced self and role. Pt is an 80 year old male who admitted yesterday late afternoon to care of hospitalist team. PCP: Dr. Marissa Terrazas Payer: Medicare and [facility] Pt confirms his awareness of the plan. Says he will be glad if he is ok to go home today but understands that he may need to stay until the physician is comfortable that his bleeding has stopped. P: home, as per above, when stable for same. CM Discharge Assessment Start: 03/26/18 14:03 Freq: Status: Active Protocol: Document 03/26/18 14:03 ITV (Rec: 03/26/18 14:06 ITV [id number]) Discharge Planning Assessment Advance Directives? Yes History Provided By Patient Medical Record Prior Living Arrangements House Household Members spouse children Comment adult son Fabio also lives in the home Independent with ADL's Yes Is patient alert and oriented? Yes Comment pt admits to sleeping in recliner as he can breath better. is SOB when lying down , at baseline Discharge Plan Home Transportation Arrangement either Fabio or pt's Kiya will pick him up at d/c Whiteboard Updated in Patient Room with Yes name and ext. # of Play Reader Review Status In Process Next Review Type Continued Stay Review
[2018-03-26 14:37] LABS: Hematocrit 30.9 % (41-53); Hemoglobin 10.3 g/dL (13.5-17.5)
--- NOTE | 2018-03-26 18:32 | PC.NURSE ---
Evening shift late entry. 1500: Assumed care of pt, pending discharge will follow up. 1700: Discharge completed with patient verbalizing understanding of follow up care. Scrips given, education provided. Pt taken down via BAKE ROOM WORKER in wheelchair to private vehicle.
== END 2018-03-26 17:15 | disposition home or self-care (01) ==
LOC: ED 13:14 → AC 15:30
PROVIDERS: Admitting Provider Hospitalist; Emergency Provider Emergency Medicine; PCP Family Medicine; Visit Provider Hospitalist
DX: K62.5 Hemorrhage of anus and rectum (principal); K92.1 Melena; I44.2 Atrioventricular block, complete; I10 Essential (primary) hypertension; Z95.810 Presence of automatic (implantable) cardiac defibrillator; Z85.038 Personal history of other malignant neoplasm of large intestine; Z77.090 Contact with and (suspected) exposure to asbestos; E66.9 Obesity, unspecified; J90 Pleural effusion, not elsewhere classified
CPT/HCPCS: 36415; 36591; 80053; 82272; 85014; 85018; 85025; 85610; 85730; 86850; 86900; 86901; 96374; 99283; 99284; G0378; C9113; J2405

== ENCOUNTER → 2018-04-01 09:42 | Outpatient (CLI) | payer MEDICARE, OTHER, SELFPAY ==
[2018-03-25 15:00] VITALS: BMI 34.6
--- NOTE | 2018-04-01 | DI.RAD.S_ITS ---
PROCEDURE: XR CHEST 2V INDICATIONS: COUGH TECHNIQUE: 2 views of the chest were acquired. COMPARISON: [facility], CR, XR CHEST 2V, 12/26/2017, 8:05. FINDINGS: Surgical changes and devices: Left chest wall cardiac device position is unchanged. Lungs and pleura: Moderate left pleural effusion is seen, cannot rule out underlying left lower lobe infiltrate. There is pulmonary vascular congestion and mild pulmonary edema. No gross pneumothorax. Mediastinum: Mediastinal contours are normal. Heart size is enlarged. Bones and chest wall: No suspicious bony abnormalities. Soft tissues appear unremarkable. IMPRESSION: Moderate left pleural effusion and left lower lobe infiltrate/atelectasis. Pulmonary vascular congestion and mild pulmonary edema. No gross pneumothorax. Dictated by: Phillip Encarnacion M.D. on 04/01/2018 at 11:26 Approved by: Phillip Encarnacion M.D. on 04/01/2018 at 11:40
== END ==
PROVIDERS: PCP Family Medicine; Visit Provider Family Medicine
DX: R05 Cough (principal); J90 Pleural effusion, not elsewhere classified; J81.1 Chronic pulmonary edema; R91.8 Other nonspecific abnormal finding of lung field; R09.89 Other specified symptoms and signs involving the circulatory and respiratory systems
CPT/HCPCS: 71046

== ENCOUNTER → 2018-05-16 10:04 | Outpatient (CLI) | payer MEDICARE, OTHER, SELFPAY ==
--- NOTE | 2018-05-16 | DI.RAD.S_ITS ---
PROCEDURE: XR CHEST 2V INDICATIONS: PLEURAL EFFUSION/HEART FAILURE TECHNIQUE: 2 views of the chest were acquired. COMPARISON: [facility], CT, CT CHEST W CON, 09/25/2017, 10:37. [facility], CR, XR CHEST 2V, 09/03/2017, 11:09. [facility], CR, XR CHEST 2V, 12/26/2017, 8:05. [facility], CR, XR CHEST 2V, 04/01/2018, 9:54. FINDINGS: Surgical changes and devices: There is a cardiac pacemaker. Lungs and pleura: There is moderate to large left effusion, minimally increased in size. Left basilar consolidation or atelectasis. Right lung is clear. No pneumothorax. Mediastinum: Mediastinal contours are normal. Heart size is normal. Bones and chest wall: No suspicious bony abnormalities. Soft tissues appear unremarkable. IMPRESSION: 1. Minimally increased large left pleural effusion. 2. Left basilar consolidation or atelectasis. Dictated by: Trista Ambrosio M.D. on 05/16/2018 at 11:02 Approved by: Trista Ambrosio M.D. on 05/16/2018 at 11:04
== END ==
PROVIDERS: PCP Family Medicine; Visit Provider Family Medicine
DX: J90 Pleural effusion, not elsewhere classified (principal); I50.9 Heart failure, unspecified; Z95.0 Presence of cardiac pacemaker
CPT/HCPCS: 71046

== ENCOUNTER 2018-09-19 21:58 | Inpatient (IN) | payer MEDICARE, OTHER, SELFPAY ==
[2018-09-19 22:03] VITALS: BP 169/91; PULSE 100; RESP 24; TEMP 36.6; O2SAT 97; BMI 32.8
--- NOTE | 2018-09-19 22:03 | ED_ITS ---
HPI - SOB/Dyspnea General Chief Complaint: Shortness of Breath/Dyspnea Stated Complaint: Diffulty Breathing Time Seen by Provider: 09/19/18 22:02 Source: patient Mode of arrival: ambulatory Limitations: no limitations History of Present Illness Patient is an 78-year-old male with a known history of chronic lung disease. He states that he has had exposure to asbestos throughout his life secondary to his work. Patient states that last year he had a left-sided lung procedure with a ?scraped ?his lung. Since then he has also had a thoracentesis to drain ?fluid? he states that he is seen by his primary provider. He states that over the past week he has had worsening shortness of breath which has significantly worsened over the past couple days. Has significant dyspnea on exertion. No chest pain. Has not tried anything for symptoms prior to arrival. States he is taking his medications. Related Data Home Medications Medication Instructions Recorded Confirmed multivitamin 1 tab PO DAILY #0 04/13/11 09/19/18 fluticasone propion-salmeterol 1 puff INHALATION PRN #0 01/17/12 09/19/18 [Advair Diskus] clobetasol 1 applic TOPICAL DIRECTED 08/14/17 09/19/18 furosemide 80 mg PO DAILY 08/14/17 09/19/18 promethazine-codeine 5 ml PO PRN PRN 08/14/17 09/19/18 spironolactone 1 dose PO DIRECTED 08/14/17 09/19/18 aspirin 325 mg PO TID 03/25/18 09/19/18 terazosin 2 mg PO DAILY 03/25/18 09/19/18 Allergies Allergy/AdvReac Type Severity Reaction Status Date / Time No Known Drug Allergies Allergy Verified 08/14/17 10:39 Review of Systems Constitutional Denies fever(s) and Denies headache(s) ENT Ears, Nose, Mouth, and Throat: Denies headache(s) Cardiovascular Denies chest pain, Reports dyspnea and Reports dyspnea on exertion Respiratory Denies cough, Denies pain on inspiration, Denies pain with cough, Reports dyspnea and Reports dyspnea on exertion Gastrointestinal Gastrointestinal: Denies abdominal pain, Denies nausea and Denies vomiting Musculoskeletal Denies myalgias and Denies arthralgias Integumentary/Breasts Denies rash Neurologic Denies headache(s) Hematologic/Lymphatic Denies easy bleeding and Denies easy bruising Allergic/Immunologic Denies urticaria [facility] Medical History History of retinal hemorrhage (Acute) Asbestos pleurisy (Acute) Complete heart block (Acute) HLD (hyperlipidemia) (Acute) HTN (hypertension) (Acute) Prostate CA (Acute) Surgical History History of shoulder surgery (Acute) History of total bilateral knee replacement (Acute) AICD (automatic cardioverter/defibrillator) present (Acute) H/O prostatectomy (Acute) Social History household members: spouse and children Smoking Status: Never smoker alcohol intake: former Social History household members: spouse and children Smoking Status: Never smoker alcohol intake: former Exam Initial Vital Signs Initial Vital Signs: Vital Signs Temperature 97.9 F 09/19/18 22:03 Pulse Rate 100 H 09/19/18 22:03 Respiratory Rate 24 09/19/18 22:03 Blood Pressure 169/91 H 09/19/18 22:03 Pulse Oximetry 97 09/19/18 22:03 Const General: cooperative and No acute distress Orientation: alert and awake HENMT Head: normal to inspection and normocephalic Resp Effort & Inspection: no cough, labored and tachypneic Auscultation: diminished lung sounds on the left Cardio Rate: tachycardic Rhythm: regular rhythm GI Inspection: non-distended Palpation: soft Skin Lesions: no lesions Rashes: no rashes Neuro General: alert, awake and oriented x3 Cognition: normal cognition Speech: speech normal Extrem General: capillary refill normal and edema Psych Appearance: grossly normal and well kempt Scores GCS Dean coma scale eye opening: Spontaneous Dean coma scale verbal response: Orientated Dean coma scale motor response: Obey commands Dean coma scale total score: 15 Course Orders Ordered: ED Orders 09/19/18 22:03 XR chest 1V Stat EKG-12 Lead Stat 09/19/18 22:05 B Type Natriuretic Peptide Stat Basic Metabolic Panel Stat Complete Blood Count AUTO DIFF Stat Partial Thromboplastin Time Stat Procalcitonin Stat Prothrombin Time INR Stat Troponin I Stat 09/20/18 Basic Metabolic Panel Routine Complete Blood Count AUTO DIFF Routine Lipid Panel Routine Magnesium Routine 09/20/18 00:27 Respiratory Panel (Film Array) Stat 09/20/18 00:37 Arterial Blood Gas Stat 09/20/18 01:26 Consult to Discharge Planning Routine 09/20/18 01:27 Consult to Occupational Therapy Evaluate & Treat Consult to Physical Therapy Evaluate & Treat 09/20/18 01:28 Consult to Ammonia Technician Routine 09/20/18 01:29 High flow/High humidity nasal Now 09/20/18 01:36 CT chest abd pel wwo con Urgent 09/20/18 02:40 EC echo doppler complete Urgent Acetaminophen (Tylenol) 650 mg PO Q6HR PRN PRN Reason: As Needed for Fever/Mild Pain Albuterol (Ventolin) 2.5 mg INH [id number] PRN PRN Reason: Shortness Of Breath Or Wheezing Albuterol/Ipratropium (Duoneb) 3 ml INH [id number] PRN PRN Reason: Shortness Of Breath Or Wheezing Bisacodyl (Dulcolax) 10 mg PO DAILY PRN PRN Reason: Constipation Docusate Sodium (Colace) 100 mg PO BID ASHELY Enoxaparin Sodium (Lovenox) 40 mg SUBCUT DAILY ASHELY Furosemide (Lasix) 80 mg PO 0800,1700 ASHELY Morphine Sulfate (Morphine) 2 mg IV Q4HR PRN PRN Reason: Pain, Moderate (4-6) Prednisone (Deltasone) 40 mg PO DAILY [facility] Last Admin: 09/20/18 02:58 Dose: 40 mg Sodium Chloride (Normal Saline 0.9% Flush) 10 ml IV BID ASHELY Sodium Chloride (Normal Saline 0.9% Flush) 10 ml IV PRN PRN PRN Reason: Flush Spironolactone (Aldactone) 50 mg PO DAILY ASHELY Terazosin HCl (Hytrin) 2 mg PO DAILY [facility] Discontinued Medications Albuterol/Ipratropium (Duoneb) 3 ml INH NOW ONE Stop: 09/20/18 00:56 Last Admin: 09/20/18 00:58 Dose: 3 ml Furosemide (Lasix) 40 mg IV NOW ONE Stop: 09/20/18 01:13 Last Admin: 09/20/18 01:22 Dose: 40 mg Vital Signs - 8 hr 09/19/18 22:03 09/19/18 22:36 09/19/18 23:23 Temperature 97.9 F Pulse Rate 100 H 90 93 H Respiratory Rate 24 25 H 20 Blood Pressure 169/91 H Blood Pressure [Left Arm] 144/67 H 150/95 H Pulse Oximetry 97 95 98 09/20/18 00:58 09/20/18 01:25 09/20/18 01:40 Temperature Pulse Rate 82 94 H Respiratory Rate 22 22 Blood Pressure Blood Pressure [Left Arm] 149/88 H Pulse Oximetry 95 98 95 09/20/18 02:03 Temperature 98.6 F Pulse Rate 108 H Respiratory Rate 32 H Blood Pressure 162/98 H Blood Pressure [Left Arm] Pulse Oximetry 95 MDM - SOB/Dyspnea Lab Data Attestation: I reviewed the patient's lab results. Result diagrams: 09/19/18 22:05 09/19/18 22:05 Lab Results 09/19/18 09/19/18 09/19/18 Range/Units 22:05 22:05 22:05 WBC (4.5-11.0) X10^3/uL RBC (4.5-5.9) X10^6/uL Hgb (13.5-17.5) g/dL Hct (41-53) % MCV (80-100) fL MCH (26-34) PG MCHC (30-36) % RDW (11.6-14.8) % Plt Count (150-400) X10^3/uL Neut % (Auto) (50-75) % Lymph % (Auto) (25-40) % [facility] % (Auto) (3-14) % Eos % (Auto) (2-4) % Baso % (Auto) (0-2) % Neut # (Auto) (8639-0686) /uL Lymph # (Auto) (6596-9993) /uL [facility] # (Auto) (0-900) /uL Eos # (Auto) (0-450) /uL Baso # (Auto) (0-100) /uL PT 12.2 (10.1-12.7) SECONDS INR 1.1 (0.9-1.3) APTT 34 D (26.4-36.2) SECONDS ABG pH (7.35-7.45) ABG pCO2 (35-45) mmHg ABG pO2 (80-100) mmHg ABG HCO3 (22-26) mmol/L ABG Total CO2 (21-31) mmol/L ABG O2 Saturation (95-100) % ABG Base Excess (-2-2) mmol/L FiO2 Sodium 136 L (137-145) mmol/L Potassium 4.4 (3.4-5.1) mmol/L Chloride 99 (98-107) mmol/L Carbon Dioxide 28 (22-32) mmol/L BUN 18 (9-20) mg/dL Creatinine 0.90 (0.66-1.25) mg/dL Estimated GFR > 60.0 (>60) mL/min BUN/Creatinine Ratio 20.0 (6-22) Glucose 109 (80-110) mg/dL Calcium 9.4 (8.4-10.2) mg/dL Troponin I 0.017 (0.01-0.034) ng/mL B-Natriuretic Peptide (<100) Procalcitonin < 0.05 (<0.5) ng/mL Chlamy pneumoniae PCR (Not Detect) Adenovirus (PCR) (Not Detect) B.parapertussis DNA PCR (Not Detect) Coronavirus OC43 (PCR) (Not Detect) Coronavirus HKU1 (PCR) (Not Detect) Coronavirus 229E (PCR) (Not Detect) Coronavirus NL63 (PCR) (Not Detect) Human Metapneumovir PCR (Not Detect) Influenza Type A (PCR) (Not Detect) Influenza Type B (PCR) (Not Detect) M. pneumoniae (PCR) (Not Detect) Parainfluenza 1 (PCR) (Not Detect) Parainfluenza 2 (PCR) (Not Detect) Parainfluenza 3 (PCR) (Not Detect) Parainfluenza 4 (PCR) (Not Detect) RSV (PCR) (Not Detect) Entero/Rhino (PCR) (Not Detect) 09/19/18 09/19/18 09/20/18 Range/Units 22:05 22:05 00:27 WBC 4.8 (4.5-11.0) X10^3/uL RBC 4.30 L (4.5-5.9) X10^6/uL Hgb 10.7 L (13.5-17.5) g/dL Hct 33.2 L (41-53) % MCV 77.3 L (80-100) fL MCH 24.9 L (26-34) PG MCHC 32.2 (30-36) % RDW 19.1 H (11.6-14.8) % Plt Count 263 (150-400) X10^3/uL Neut % (Auto) 75.9 H (50-75) % Lymph % (Auto) 10.2 L (25-40) % [facility] % (Auto) 10.8 (3-14) % Eos % (Auto) 2.4 (2-4) % Baso % (Auto) 0.7 (0-2) % Neut # (Auto) 3700 (6383-7686) /uL Lymph # (Auto) 500 L (6919-8597) /uL [facility] # (Auto) 500 (0-900) /uL Eos # (Auto) 100 (0-450) /uL Baso # (Auto) 0 (0-100) /uL PT (10.1-12.7) SECONDS INR (0.9-1.3) APTT (26.4-36.2) SECONDS ABG pH (7.35-7.45) ABG pCO2 (35-45) mmHg ABG pO2 (80-100) mmHg ABG HCO3 (22-26) mmol/L ABG Total CO2 (21-31) mmol/L ABG O2 Saturation (95-100) % ABG Base Excess (-2-2) mmol/L FiO2 Sodium (137-145) mmol/L Potassium (3.4-5.1) mmol/L Chloride (98-107) mmol/L Carbon Dioxide (22-32) mmol/L BUN (9-20) mg/dL Creatinine (0.66-1.25) mg/dL Estimated GFR (>60) mL/min BUN/Creatinine Ratio (6-22) Glucose (80-110) mg/dL Calcium (8.4-10.2) mg/dL Troponin I (0.01-0.034) ng/mL B-Natriuretic Peptide 246 H (<100) Procalcitonin (<0.5) ng/mL Chlamy pneumoniae PCR Not detected (Not Detect) Adenovirus (PCR) Not detected (Not Detect) B.parapertussis DNA PCR Not detected (Not Detect) Coronavirus OC43 (PCR) Not detected (Not Detect) Coronavirus HKU1 (PCR) Not detected (Not Detect) Coronavirus 229E (PCR) Not detected (Not Detect) Coronavirus NL63 (PCR) Not detected (Not Detect) Human Metapneumovir PCR Not detected (Not Detect) Influenza Type A (PCR) Not detected (Not Detect) Influenza Type B (PCR) Not detected (Not Detect) M. pneumoniae (PCR) Not detected (Not Detect) Parainfluenza 1 (PCR) Not detected (Not Detect) Parainfluenza 2 (PCR) Not detected (Not Detect) Parainfluenza 3 (PCR) Not detected (Not Detect) Parainfluenza 4 (PCR) Not detected (Not Detect) RSV (PCR) Not detected (Not Detect) Entero/Rhino (PCR) Not detected (Not Detect) 09/20/18 Range/Units 00:37 WBC (4.5-11.0) X10^3/uL RBC (4.5-5.9) X10^6/uL Hgb (13.5-17.5) g/dL Hct (41-53) % MCV (80-100) fL MCH (26-34) PG MCHC (30-36) % RDW (11.6-14.8) % Plt Count (150-400) X10^3/uL Neut % (Auto) (50-75) % Lymph % (Auto) (25-40) % [facility] % (Auto) (3-14) % Eos % (Auto) (2-4) % Baso % (Auto) (0-2) % Neut # (Auto) (2452-0595) /uL Lymph # (Auto) (3741-4442) /uL [facility] # (Auto) (0-900) /uL Eos # (Auto) (0-450) /uL Baso # (Auto) (0-100) /uL PT (10.1-12.7) SECONDS INR (0.9-1.3) APTT (26.4-36.2) SECONDS ABG pH 7.40 (7.35-7.45) ABG pCO2 46.3 H (35-45) mmHg ABG pO2 60 L (80-100) mmHg ABG HCO3 28 H (22-26) mmol/L ABG Total CO2 30 (21-31) mmol/L ABG O2 Saturation 90 L (95-100) % ABG Base Excess 3.0 H (-2-2) mmol/L FiO2 21 Sodium (137-145) mmol/L Potassium (3.4-5.1) mmol/L Chloride (98-107) mmol/L Carbon Dioxide (22-32) mmol/L BUN (9-20) mg/dL Creatinine (0.66-1.25) mg/dL Estimated GFR (>60) mL/min BUN/Creatinine Ratio (6-22) Glucose (80-110) mg/dL Calcium (8.4-10.2) mg/dL Troponin I (0.01-0.034) ng/mL B-Natriuretic Peptide (<100) Procalcitonin (<0.5) ng/mL Chlamy pneumoniae PCR (Not Detect) Adenovirus (PCR) (Not Detect) B.parapertussis DNA PCR (Not Detect) Coronavirus OC43 (PCR) (Not Detect) Coronavirus HKU1 (PCR) (Not Detect) Coronavirus 229E (PCR) (Not Detect) Coronavirus NL63 (PCR) (Not Detect) Human Metapneumovir PCR (Not Detect) Influenza Type A (PCR) (Not Detect) Influenza Type B (PCR) (Not Detect) M. pneumoniae (PCR) (Not Detect) Parainfluenza 1 (PCR) (Not Detect) Parainfluenza 2 (PCR) (Not Detect) Parainfluenza 3 (PCR) (Not Detect) Parainfluenza 4 (PCR) (Not Detect) RSV (PCR) (Not Detect) Entero/Rhino (PCR) (Not Detect) Imaging Data Chest x-ray: Radiologist's impression: Ania find consolidation and mild interstitial thickening bilaterally suspicious for edema or infection recommend follow-up. Probable small bilateral pleural effusions. ECG Data Attestation: I personally reviewed and interpreted this ECG as follows: Prior ECG tracings: not available for review Interpretation: Ventricular paced Rate of 95 Left axis deviation Nonspecific ST T wave changes MDM Narrative Medical decision making narrative: Patient arrived and was tachypneic. Was hypoxic to the high 80s and the low 90s. He is placed on 2 L of nasal cannula which she states only minimally improved any of his symptoms. No changes on his EKG. His chest x-ray looks somewhat better today as it did in April. He is afebrile. Does not have a white count. Negative procalcitonin. Low suspicion for pneumonia. Will hold on antibiotics for now. Patient does have lower extremity swelling. Forty of IV Lasix was ordered after discussion with the admitting hospitalist. Did discuss the case with JAMIE Rodriguez who was the night hospitalist. Will admit the patient for further evaluation and treatment. Discussed the admission with the patient. He expressed understanding and agreement with plan. Discharge Plan Departure Patient Disposition: Admitted as Observation Clinical Impression: Hypoxia, Shortness of breath, Pleural effusion Discharge Date/Time: 09/20/18 01:26 Interventions: ED Discharge Assessment Last Done: 09/20/18 01:23 Admit Date/Time: 09/20/18 00:53 Admit Provider: Raphael Rodriguez
--- NOTE | 2018-09-19 22:03 | DI.RAD.S_ITS ---
PROCEDURE: XR CHEST 1V INDICATIONS: Shortness of breath TECHNIQUE: One view of the chest was acquired. COMPARISON: 07/25/18 and 06/27/18. FINDINGS: Surgical changes and devices: Left-sided cardiac pacer device is unchanged in position. Lungs and pleura: There are bilateral pleural effusions, larger on the left. Mild diffuse interstitial prominence likely related to decreased lung volumes. Persistent patchy left lower lung zone opacities which appear less prominent. Previously noted air-fluid levels in the lower lung zone are not appreciated on this study. No pneumothorax seen. Patchy right basilar opacities favored to represent atelectasis. Mediastinum: Cardiomediastinal contours remain stable. Bones and chest wall: No suspicious bony lesions. Status post right shoulder hemiarthroplasty. Overlying soft tissues appear unremarkable. IMPRESSION: Mild diffuse interstitial prominence with bilateral pleural effusions, larger on the left and patchy left greater than right bibasilar opacities are favored to represent hypoventilatory changes/atelectasis. However, early developing pulmonary edema or pneumonia/aspiration may have a similar appearance if clinically appropriate. Previously noted left lower lung zone air-fluid levels are not visualized on today's exam. Dictated by: Juan Che M.D. on 09/20/2018 at 7:25 Approved by: Juan Che M.D. on 09/20/2018 at 7:33
[2018-09-19 22:33] LABS: INR 1.1 (0.9-1.3); Prothrombin Time 12.2 SECONDS (10.1-12.7)
[2018-09-19 22:36] VITALS: BP 144/67; PULSE 90; RESP 25; O2SAT 95
[2018-09-19 22:36] LABS: PTT Partial Thromboplastin Tim 34 SECONDS (26.4-36.2)
[2018-09-19 22:37] LABS: Blood Urea Nitrogen 18 mg/dL (9-20); Calcium 9.4 mg/dL (8.4-10.2); Carbon Dioxide 28 mmol/L (22-32); Chloride 99 mmol/L (98-107); Estimated Glomerular Filt Rate > 60.0 mL/min (>60); Glucose 109 mg/dL (80-110); HEMOLYSIS 20 (0-50); Potassium 4.4 mmol/L (3.4-5.1); Sodium 136 mmol/L (137-145)
[2018-09-19 22:49] LABS: Troponin I 0.017 ng/mL (0.01-0.034)
[2018-09-19 22:56] LABS: B Type Natriuretic Peptide 246 (<100)
[2018-09-19 23:01] LABS: Procalcitonin < 0.05 ng/mL (<0.5)
[2018-09-19 23:23] VITALS: BP 150/95; PULSE 93; RESP 20; O2SAT 98
[2018-09-19 23:54] LABS: Add Manual Diff / Slide Review NO; Basophils Absolute Auto 0 /uL (0-100); Basophils Percent Auto 0.7 % (0-2); Eosinophils Absolute Auto 100 /uL (0-450); Eosinophils Percent Auto 2.4 % (2-4); Hematocrit 33.2 % (41-53); Hemoglobin 10.7 g/dL (13.5-17.5); Lymphocytes Absolute Auto 500 /uL (1100-4500); Lymphocytes Percent Auto 10.2 % (25-40); Mean Corpuscular HGB Conc 32.2 % (30-36); Mean Corpuscular Hemoglobin 24.9 PG (26-34); Mean Corpuscular Volume 77.3 fL (80-100); Monocytes Absolute Auto 500 /uL (0-900); Monocytes Percent Auto 10.8 % (3-14); Neutrophils Absolute Auto 3700 /uL (1500-7000); Neutrophils Percent Auto 75.9 % (50-75); Platelet Count 263 X10^3/uL (150-400); Red Cell Distribution Width 19.1 % (11.6-14.8); White Blood Cell Count 4.8 X10^3/uL (4.5-11.0)
[2018-09-20] VITALS (15 sets, daily range): BP systolic 118–162; BP diastolic 65–98; PULSE 82–108; RESP 18–32; TEMP 36.4–37; O2SAT 85–98; BMI 32.8
--- NOTE | 2018-09-20 | DI.RAD.S_ITS ---
PROCEDURE: XR CHEST 1V INDICATIONS: post thoracentesis TECHNIQUE: One view of the chest was acquired. COMPARISON: [facility], CT, CT CHEST ABD PEL W CON, 09/20/2018, 7:57. [facility], CR, XR CHEST 1V, 09/19/2018, 22:15. FINDINGS: Surgical changes and devices: Dual-lead cardiac pacer. Right shoulder arthroplasty. Lungs and pleura: There is decrease in the small right pleural effusion since the prior study. No pneumothorax is seen, status post thoracentesis. Residual trace right pleural fluid remains. On the left, loculated appearing small to moderate pleural effusion with air-fluid level projecting in the left upper lung, probably similar in appearance to CT from earlier same day (please see report). Increased patchy retrocardiac consolidative opacities, probably atelectasis versus aspiration. Mediastinum: Cardiac silhouette and mediastinal contours are stable. Bones and chest wall: No suspicious bony lesions. Overlying soft tissues appear unremarkable. IMPRESSION: No pneumothorax, status post right thoracentesis. Dictated by: Ag Ricardo M.D. on 09/20/2018 at 13:38 Approved by: Ag Ricardo M.D. on 09/20/2018 at 13:42
--- NOTE | 2018-09-20 00:21 | PC.NURSE ---
turned oxygen off for RA abg.
[2018-09-20 00:53] LABS: HCO3 ABG 28 mmol/L (22-26); PCO2 ABG 46.3 mmHg (35-45); PO2 ABG 60 mmHg (80-100); TCO2 ABG 30 mmol/L (21-31)
[2018-09-20 00:54] LABS: Fractionated Inspired Oxygen 21; Oxygen Saturation ABG 90 % (95-100)
[2018-09-20] MEDS: ALBUTEROL/IPRATROPIUM 3 ML AMPUL INH ×2 (00:58→04:57)
[2018-09-20] MEDS: FUROSEMIDE 40 MG/4 ML VIAL IV (01:22)
--- NOTE | 2018-09-20 01:37 | PM.HP.1 ---
History of Present Illness Date Patient Seen: 09/20/18 Time Patient Seen: 01:11 Chief complaint: Diffulty Breathing Narrative: Mr. Jonas Estrada is an 78-year-old male patient with a history of asbestosis, pulmonary effusion, complete heart block status post AICD placement, hypertension, hyperlipidemia and prostate cancer status post prostatectomy who presents to the hospital for worsening shortness of breath for 1 week. Reports worsening dyspnea on exertion and it is now only able to make it as far as the bathroom without having to stop to rest. He has increased work of breathing with reported air hunger and cough that he describes is unchanged from typical. He reports having no recent sick contacts and has had no fevers or chills and denies nasal congestion or sore throat. He describes no chest pain and at present has a dry nonproductive cough. He reports no abdominal pain and has around abdomen that he states is no more distended than usual. He has no nausea vomiting and denies diarrhea but has a chronic issue with constipation. He denies dysuria and describes variable stream sometimes week sometimes robust and is status post prostatectomy He has had bilateral total knee replacements and right shoulder surgery. Upon arrival in the ER the patient is afebrile with a temperature of 97.9?, heart rate of 101, blood pressure 169/91, tachypneic with a respiratory rate of 24 saturating 97% on room air. On 2 L nasal cannula his respiratory rate diminished to 20 and his oxygen saturation went to 98%. Chest x-ray was taking which identifies left pleural effusion and additionally remarks on an enlarged heart which is not appreciated on review of the film. An ABG was obtained which reveals a pH of 7.39, pCO2 of 46.3, pCO2 of 60, base excess of 3 and a bicarb of 28.3. His calculated O2 saturation is 90%. On chemistries patient has a white count of 4.8 and is noted to have a microcytic hypochromic anemia with a hemoglobin of 3.2 and platelet with limits and his procalcitonin is less than 0.05. His chemistries are within normal limits with a BUN of 18 and creatinine is 0.9 and a nonfasting glucose of 109. The patient is admitted to the hospital for acute on chronic hypoxic respiratory failure. Patient History Medical History (Updated 09/20/18 @ 02:00 by CARLY Romero) History of retinal hemorrhage (Acute) Asbestos pleurisy (Acute) Complete heart block (Acute) HLD (hyperlipidemia) (Acute) HTN (hypertension) (Acute) Prostate CA (Acute) Surgical History History of shoulder surgery (Acute) History of total bilateral knee replacement (Acute) AICD (automatic cardioverter/defibrillator) present (Acute) H/O prostatectomy (Acute) Social History household members: spouse and children Smoking Status: Never smoker alcohol intake: former Family & Social History Social History: household members spouse,children Safety & Behavioral: Feels Safe in Current Yes Environment Tobacco & Substance use: Smoking Status Never smoker alcohol intake former alcohol intake frequency 0-2 drinks per day Substance Use Type does not use Comment: Patient lives in a single family home with his to whom he has been for over 60 years. The patient states father from a gunshot wound and has no further knowledge of his health. His mother from cancer. He has 4 siblings 1 of whom was heavy smoker and suddenly of unknown cause. Smoking: Patient is a past smoker having quit 1990. Alcohol: Patient endorses past moderate alcohol intake having quit many years ago. Substance use: The patient denies recreation pharmaceuticals, herbal or cannabis products. Advanced directives: Under direct discussion with the patient he states his wishes to be a FULL CODE with no prolonged life sustaining efforts. Designates his be his surrogate decision maker. Primary care provider: Dr. Burns. Meds Home Medications Medication Instructions Recorded Confirmed Type multivitamin 1 tab PO DAILY #0 04/13/11 09/19/18 History fluticasone propion-salmeterol 1 puff INHALATION PRN #0 01/17/12 09/19/18 History [Advair Diskus] clobetasol 1 applic TOPICAL DIRECTED 08/14/17 09/19/18 History furosemide 80 mg PO DAILY 08/14/17 09/19/18 History promethazine-codeine 5 ml PO PRN PRN 08/14/17 09/19/18 History spironolactone 1 dose PO DIRECTED 08/14/17 09/19/18 History aspirin 325 mg PO TID 03/25/18 09/19/18 History terazosin 2 mg PO DAILY 03/25/18 09/19/18 History Allergies Allergy/AdvReac Type Severity Reaction Status Date / Time No Known Drug Allergies Allergy Verified 08/14/17 10:39 Review of Systems Review of Systems All systems reviewed & are unremarkable except as noted in HPI and below Exam Vital Signs (past 8 hours): - 09/19/18 22:03 09/19/18 22:36 09/19/18 23:23 Temperature 97.9 F Pulse Rate 100 H 90 93 H Respiratory Rate 24 25 H 20 Blood Pressure 169/91 H Blood Pressure [Left Arm] 144/67 H 150/95 H Pulse Oximetry 97 95 98 09/20/18 00:58 09/20/18 01:25 Temperature Pulse Rate 82 94 H Respiratory Rate 22 22 Blood Pressure Blood Pressure [Left Arm] 149/88 H Pulse Oximetry 95 98 Oxygen Delivery Method Nasal Cannula Oxygen Flow Rate 2 Narrative Exam Narrative: GENERAL APPEARANCE: well developed, overweight male with increased work of breathing. HEAD: Normocephalic, atraumatic, no scalp lesions. EYES: Reduced vision right eye to hand motion only at 2 ft, pupils equal, round, reactive to light, sclera non-icteric, extraocular movement intact without nystagmus. EARS: normal external structures, no ear pain NOSE: sinuses non tender to percussion, no rhinorrhea ORAL CAVITY: mucosa moist without lesions or exudate, dentition in poor repair, palate normal, tongue in midline. THROAT: normal, no erythema, no exudate, pharynx normal, uvula midline. NECK/THYROID: neck supple, no jugular venous distention, no carotid bruit, no thyromegaly, trachea midline. LYMPH NODES: no cervical or supraclavicular lymphadenopathy. SKIN: warm dry and pink without visible rashes HEART: Tachycardic rate with regular rhythm, 3/6 holosystolic murmur, no rubs or gallops, brisk capillary refill, 2 to 3+ bilateral lower extremity pitting edema to the knee. LUNGS: Diminished breath sounds right lung and left upper, no lung sounds appreciated from nipple line distal on the left, dull to percussion CHEST: Symmetrical movement with accessory muscle use, supraclavicular retractions and 4 word dyspnea, no pain to AP and lateral compression. ABDOMEN: Soft, tympanic to percussion, mildly distended, no epigastric tenderness on palpation, mild discomfort to palpation bilateral lower quadrants, no guarding or peritoneal signs, no organomegaly, active bowel tones. BACK: Nontender to palpation EXTREMITIES: moves all extremities, strength is 5/5 and symmetrical, pediatric neuropsychologist equal and strong bilaterally NEUROLOGIC: AAO x4, cranial nerves II-XII grossly intact , motor strength normal upper and lower extremities, sensory exam intact to light touch, hearing grossly normal to speech. PSYCH: alert, cognitive function intact, good eye contact, stable mood with congruent affect Objective Labs Result Diagrams: 09/19/18 22:05 09/19/18 22:05 Labs: Laboratory Results - last 24 hr 09/19/18 09/19/18 09/19/18 22:05 22:05 22:05 WBC RBC Hgb Hct MCV MCH MCHC RDW Plt Count Neut % (Auto) Lymph % (Auto) Kitt[place] % (Auto) Eos % (Auto) Baso % (Auto) Neut # (Auto) Lymph # (Auto) Kitt[place] # (Auto) Eos # (Auto) Baso # (Auto) PT 12.2 INR 1.1 APTT 34 D ABG pH ABG pCO2 ABG pO2 ABG HCO3 ABG Total CO2 ABG O2 Saturation ABG Base Excess FiO2 Sodium 136 L Potassium 4.4 Chloride 99 Carbon Dioxide 28 BUN 18 Creatinine 0.90 Estimated GFR > 60.0 BUN/Creatinine Ratio 20.0 Glucose 109 Calcium 9.4 Troponin I 0.017 B-Natriuretic Peptide Procalcitonin < 0.05 09/19/18 09/19/18 09/20/18 22:05 22:05 00:37 WBC 4.8 RBC 4.30 L Hgb 10.7 L Hct 33.2 L MCV 77.3 L MCH 24.9 L MCHC 32.2 RDW 19.1 H Plt Count 263 Neut % (Auto) 75.9 H Lymph % (Auto) 10.2 L Kittson % (Auto) 10.8 Eos % (Auto) 2.4 Baso % (Auto) 0.7 Neut # (Auto) 3700 Lymph # (Auto) 500 L Kittson # (Auto) 500 Eos # (Auto) 100 Baso # (Auto) 0 PT INR APTT ABG pH 7.40 ABG pCO2 46.3 H ABG pO2 60 L ABG HCO3 28 H ABG Total CO2 30 ABG O2 Saturation 90 L ABG Base Excess 3.0 H FiO2 21 Sodium Potassium Chloride Carbon Dioxide BUN Creatinine Estimated GFR BUN/Creatinine Ratio Glucose Calcium Troponin I B-Natriuretic Peptide 246 H Procalcitonin Assessment & Plan Assessment & Plan narrative: The patient is admitted to the hospital with 1 week of worsening breathing with a pre-existing asbestosis and underlying lung disease with a left pulmonary effusion. 1. Acute on chronic hypoxic respiratory failure, present on admission -the patient presents with 1 week of worsening shortness of breath and worsening dyspnea on exertion. -multifactorial including asbestosis, left pleural effusion, congestive heart failure, likely pulmonary hypertension. -patient presents with air hunger minimally improved with supplemental oxygen. -arterial blood gas reveals pH of 7.39, pCO2 46.3, PO2 of 60, base excess 3 and bicarbonate of 28.3. -will obtain respiratory PCR. -will treat the underlying causes as discussed below. 2. Chronic congestive heart failure with preserved ejection fraction, present on admission. -patient also has history of congestive heart failure with preserved EF last documented on echo cardiogram 03/20/2018 with finding of normal LV function, EF of 60-65%, mildly dilated RV and severely dilated right atrium. -patient takes daily Lasix 80 mg and spironolactone 50 mg 3 times a week. He stopped medications when he started having worsening breathing. -patient subsequently developed 2 to 3+ pitting edema to the levels of the knee. -will increase Lasix to 60 mg twice daily -spironolactone 50 mg daily. -will monitor electrolytes and renal function. -echocardiogram to evaluate for pulmonary artery hypertension. 3. 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 -chest x-ray identifies left pleural effusion encompassing the lower left half of the left chest. -pleural effusion may have worsened with cessation of diuretic therapy by patient. -patient has had previous thoracentesis in May with removal of 500 cc of fluid. -will obtain a CT of the chest with and without contrast. -will obtain surgical consult if thoracentesis is indicated. 4. Chronic asbestosis, presumed stable. -patient has history of asbestosis and prior left pleural effusion having undergone thoracentesis in May for removal of 500 cc of bloody drainage. -chest x-ray on admission identifies left pleural effusion. -patient with chronic shortness of breath reporting he has difficulty walking 1 block without stopping to rest at baseline. -patient has MDI inhaler of albuterol. Will have respiratory therapy consult and treat with teaching on using a spacer with his inhaler. -DuoNeb nebulizer every 6 hours while awake as needed -albuterol nebulizer every 2 hours while awake as needed -prednisone 40 mg by mouth daily. 5. Chronic Hypertension, active -the patient is taking furosemide 80 mg daily, and spironolactone 50 mg 3 times weekly. -the patient presents as hypertensive on arrival at 169/91 and upon arrival to the floor 162/98. -will reinstitute diuretic therapy as above and re-evaluate need for antihypertensives. 6. History of hyperlipidemia, presumed stable. -patient is not currently on cholesterol lowering medication. -will obtain lipid panel. 7. Prostate cancer, stable. -status post prostatectomy, patient with variable urinary pattern. -no evidence of recurrence. 8. Presence AICD stable. -patient with previous diagnosis of complete heart block. -EKG demonstrates regular paced rhythm. -patient reports no AICD firing. The patient is admitted to the hospital due to severity of his symptoms risk for complications and adverse events. The patient will be admitted as an inpatient with expected length of stay to be greater than 2 midnights. Time Spent With Patient Time with patient: 25 - 35 minutes
[2018-09-20 02:01] LABS: Adenovirus Not Detected (Not Detect)
[2018-09-20 02:02] LABS: Bordetella pertussis Not Detected (Not Detect); Chlamydophila pneumoniae Not Detected (Not Detect); Coronavirus 229E Not Detected (Not Detect); Coronavirus HKU1 Not Detected (Not Detect); Coronavirus NL 63 Not Detected (Not Detect); Coronavirus OC43 Not Detected (Not Detect); Human Metapneumovirus Not Detected (Not Detect); Human Rhinovirus/Enterovirus Not Detected (Not Detect); Influenza A Not Detected (Not Detect); Influenza B Not Detected (Not Detect); Mycoplasma pneumoniae Not Detected (Not Detect); Parainfluenza Virus 1 Not Detected (Not Detect); Parainfluenza Virus 2 Not Detected (Not Detect); Parainfluenza Virus 3 Not Detected (Not Detect); Parainfluenza Virus 4 Not Detected (Not Detect); Respiratory Syncytial Virus Not Detected (Not Detect)
--- NOTE | 2018-09-20 02:40 | DI.ECHO.S_ITS ---
[facility] +---------+ : : [address] : : : : [address]. : : : : [place], : : : : [place] [id number] : : : : Phone: [phone] + [facility] Echocardiogram Report + + :Name: MIGUELANGEL CALLOWAY Study Date: 09/20/2018 Height: 67 in : :[facility] Exam Location: [facility] Weight: 207 lb : : Gender: Male BSA: 2.1 m2 : :: 1940 Age: 78 yrs BP: 162/98 mmHg: :Reason For Study: Acute SOB/ Heat failure : :Ordering Physician: Wil : :Hospitalist Performed By: Renetta Page : :Referring: BALDO RIVERA : + + Interpretation Summary Left ventricular wall thickness is moderately increased. The left ventricle is normal in size. The left ventricle is hyperdynamic. The ejection fraction is estimated to be 70-75%. There are no obvious focal wall motion abnormalities noted but poor endocardial definition reduces the sensitivity for the detection of such. Diastolic function could not be accurately assessed due to confounding valvular disease. The right ventricle is mild to moderately dilated. There is a pacemaker lead in the right ventricle. Flattened septum is consistent with RV pressure/volume overload. The right ventricular systolic function is normal. The right ventricular systolic pressure is estimated to be at least 51 mmHg based on an estimated right atrial pressure of 3 mm Hg. The left atrium is severely dilated. The right atrium is mildly dilated. There is severe mitral annular calcification. There is mobile echogenicity on the chordee that appears to be more prominent then on the previous study. There is moderately-severe calcification extending into the subvalvular apparatus. There is moderate mitral stenosis. The mitral valve mean gradient is 8.7 mmHg. Prior mean mitral valve gradient was 7.4 mmHg. There is moderate aortic stenosis. The peak aortic velocity is 3.5 m/sec. The peak aortic velocity on the previous exam was 3.3 m/sec. There has been no significant change since the previous study. There is no other significant valvular heart disease. The ascending aorta is mild-moderately enlarged. There are moderate-sized bilateral pleural effusions. Procedure: A two-dimensional transthoracic echocardiogram with color flow and Doppler was performed. The study quality was technically adequate. Comparison is made with the echocardiogram of 03/20/2018. The patient has a paced rhythm. Left Ventricle: Left ventricular wall thickness is moderately increased. The left ventricle is normal in size. The left ventricle is hyperdynamic. The ejection fraction is estimated to be 70-75%. Flattened septum is consistent with RV pressure/volume overload. There are no obvious focal wall motion abnormalities noted but poor endocardial definition reduces the sensitivity for the detection of such. Diastolic function could not be accurately assessed due to confounding valvular disease. Right Ventricle: The right ventricle is mild to moderately dilated. There is a pacemaker lead in the right ventricle. The right ventricular systolic function is normal. Atria: The left atrium is severely dilated. The right atrium is mildly dilated. There is no Doppler evidence for an interatrial shunt. Mitral Valve: The mitral valve is not well visualized. There is severe mitral annular calcification. There is mobile echogenicity on the chordee that appears to be more prominent then on the previous study. There is moderately- severe calcification extending into the subvalvular apparatus. There is moderate mitral stenosis. The mitral valve mean gradient is 8.7 mmHg. Compared to the prior echo exam, there has been an increase in the severity of mitral stenosis. Prior mean mitral valve gradient was 7.4 mmHg. There is trace mitral regurgitation. Aortic Valve: The aortic valve is moderately calcified. There is moderate aortic stenosis. The peak aortic velocity is 3.5 m/sec. The peak aortic velocity on the previous exam was 3.3 m/sec. The aortic valve mean gradient is 26.2 mmHg. The calculated aortic valve area is 1.5 cm2. There has been no significant change since the previous study. There is trace aortic regurgitation. Tricuspid Valve: The tricuspid valve is normal in structure and function. There is mild tricuspid regurgitation. The right ventricular systolic pressure is estimated to be at least 51 mmHg based on an estimated right atrial pressure of 3 mm Hg. Pulmonic Valve: The pulmonic valve is not well seen, but is grossly normal. There is a trace or physiologic amount of pulmonic regurgitation. There is no other significant valvular heart disease. Great Vessels: The aortic root is normal size. The ascending aorta is mild- moderately enlarged. The pulmonary is not well visualized. The IVC is of normal diameter and collapses greater than 50% with a sniff. This suggests a low right atrial pressure of 3 mm Hg. Pericardium/ Pleura There is no pericardial effusion. There are moderate- sized bilateral pleural effusions noted. MMode/2D Measurements & Calculations LVIDd: 4.3 cm LVOT diam: 2.2 cm LVIDs: 3.0 cm Ao root diam: 3.3 cm IVSd: 1.6 cm asc Aorta Diam: 4.0 cm LVPWd: 1.9 cm LV harris. diameter/BSA (cm/m^2): 2.1 LV sys. diameter/BSA (cm/m^2): 1.4 FS: 30.8 % LA A2 area: 29.9 cm2 RA long axis: 5.2 cm LA A4 area: 24.9 cm2 RA area: 19.8 cm2 LA length (vol): 5.9 cm RA vol: 64.1 ml LA vol: 107.1 ml RA : 31.2 ml/m2 LA vol index: 52.2 ml/m2 RVD1 (basal): 4.9 cm IVC diam: 2.0 cm RVD2 (mid): 4.1 cm Doppler Measurements & Calculations Ao V2 max: 345.6 cm/sec LVOT Max Sohail: 123.5 cm/sec Ao V2 mean: 242.7 cm/sec LV V1 max P.1 mmHg Ao V2 VTI: 59.2 cm LV V1 VTI: 23.5 cm Ao max P.8 mmHg Ao mean P.2 mmHg ROSANNA(I,D): 1.5 cm2 MV P1/2t: 47.5 msec ROSANNA(V,D): 1.3 cm2 MVA(P1/2t): 4.6 cm2 ROSANNA indexed to BSA (cm^2/m^2): 0.72 MV mean P.7 mmHg sev ratio: 0.40 MVA(VTI): 1.9 cm2 TR max sohail: 345.6 cm/sec PA V2 max: 61.7 cm/sec TR max P.8 mmHg PA V2 mean: 40.2 cm/sec PA mean P.74 mmHg PA Accel Time: 0.11 sec MV V2 mean: 129.5 cm/sec SV(LVOT): 87.4 ml V2 VTI: 46.7 cm Reading Physician:12:55 PM
--- NOTE | 2018-09-20 02:49 | PC.NURSE ---
0140 Admitted to room 227, very dyspneic & RR on admit 32. Pt. needed to sit up in bed to catch his breath. 2 liters per N/C & sat. 95-96%, denies any pain, CROOK & CP. After he voided 600 cc of pale yellow urine, he states I'm a little better. CARLY Rodriguez seen pt. @ bedside. Will cont. POC & monitor.
[2018-09-20] MEDS: predniSONE 20 MG TABLET 40 MG PO ×2 (02:58→09:27)
[2018-09-20] MEDS: SODIUM CHLORIDE 0.9% FLUSH 10 ML IV ×3 (04:04→20:55)
[2018-09-20] MEDS: BACLOFEN 10 MG TABLET PO (04:51)
--- NOTE | 2018-09-20 04:56 | PC.NURSE ---
C/O legs cramps & muscles spasms, CARLY Rodriguez notified. ordered 10 mg. of Baclofen admin. Instructed pt. not to get up in the recliner without any assistance & informed pt. that the medicine will make him drowsy. Will monitor, call light w/in reached.
[2018-09-20 06:20] LABS: Add Manual Diff / Slide Review NO; Basophils Absolute Auto 0 /uL (0-100); Basophils Percent Auto 0.4 % (0-2); Eosinophils Absolute Auto 0 /uL (0-450); Eosinophils Percent Auto 0.5 % (2-4); Hematocrit 34.8 % (41-53); Hemoglobin 11.1 g/dL (13.5-17.5); Lymphocytes Absolute Auto 300 /uL (1100-4500); Mean Corpuscular HGB Conc 31.8 % (30-36); Mean Corpuscular Hemoglobin 24.8 PG (26-34); Monocytes Absolute Auto 500 /uL (0-900); Monocytes Percent Auto 7.2 % (3-14); Neutrophils Absolute Auto 5800 /uL (1500-7000); Neutrophils Percent Auto 87.9 % (50-75); Platelet Count 271 X10^3/uL (150-400); Red Blood Cell Count 4.46 X10^6/uL (4.5-5.9); White Blood Cell Count 6.6 X10^3/uL (4.5-11.0)
[2018-09-20 06:30] LABS: BUN Creatinine Ratio 17.8 (6-22); Blood Urea Nitrogen 16 mg/dL (9-20); Calcium 9.8 mg/dL (8.4-10.2); Carbon Dioxide 32 mmol/L (22-32); Chloride 97 mmol/L (98-107); Estimated Glomerular Filt Rate > 60.0 mL/min (>60); Glucose 118 mg/dL (80-110); HEMOLYSIS < 15 (0-50); Magnesium 1.9 mg/dL (1.6-2.3); Potassium 4.7 mmol/L (3.4-5.1); Sodium 138 mmol/L (137-145)
[2018-09-20 06:50] LABS: Cholesterol 180 mg/dL (140-199); HDL Cholesterol 58 mg/dL (40-60); LDL Cholesterol Calculated 111 mg/dL (<100); Triglycerides 53 mg/dL (35-150)
--- NOTE | 2018-09-20 07:59 | DI.CT.S_ITS ---
PROCEDURE: CT CHEST ABD PEL W CON INDICATIONS: Worsening abdominal pains and shortnes of breath TECHNIQUE: After the administration of oral and intravenous contrast, 5 mm thick sections acquired from the lung apices to the symphysis. 5 mm coronal and sagittal reformats were performed, with additional 7 mm coronal MIP reformats through the lungs. For radiation dose reduction, the following was used: automated exposure control, adjustment of mA and/or kV according to patient size. COMPARISON: [facility], CR, CHEST 2 VIEW, 06/26/2011, 12:05. [facility], CR, CHEST 2 VIEW, 02/11/2016, 10:32. [facility], CT, CT CHEST W CON, 09/25/2017, 10:37. [facility], CT, THORAX WITH CONTRAST, 05/11/2016, 8:53. CT, NECK/CHEST/ABD/PEL W/CONT (P), 04/23/2014, 12:39. FINDINGS: Image quality: Excellent. CHEST: Lungs and pleura: Within the pleural surfaces previously there has been a finding of pleural plaquing and calcification and bilateral effusions, again seen. The current study shows a diminishment in the left effusion and enlargement of the right effusion with reference to the prior study from one year ago 09/25/17. There is new mild alveolar consolidation at the left lung base associated with the finding of pleural thickening and calcification previously present which appears to have mildly advanced. Additionally, there is a finding of 2 separate areas of air-fluid level within the posterior left pleural space, best seen at the apex and slightly more inferiorly, posteriorly. The pleural fluid and margins on the left appear exudative, on the right there is no significant pleural thickening and enhancement This may represent sequela of prior pleural drainage procedure, but in the available radiology records a recent thoracentesis has not been documented. Mediastinum: Heart size is normal. No pericardial effusion. No new mediastinal or hilar adenopathy by size criteria and again noted are multiple nodes which demonstrate partial calcifications consistent with old granulomatous disease.. Thoracic aorta and central pulmonary arteries are normal in size. Esophagus is normal in caliber. No hiatal hernia. Chest wall: No axillary or supraclavicular adenopathy by size criteria. Thyroid gland appears normal where well visualized. ABDOMEN: Solid organs: Liver is normal in size and enhancement. Gallbladder contains small calcified gallstones as has been previously the case, without evidence of acute cholecystitis or biliary obstruction. Biliary system is non dilated. Pancreas enhances normally. Spleen is normal in size and enhancement. No adrenal nodules. Kidneys demonstrate normal size and enhancement, without hydronephrosis. Peritoneum and bowel: Bowel loops demonstrate normal wall thickness and caliber. No free fluid or air. Nodes and vessels: No retroperitoneal or mesenteric adenopathy by size criteria. Aorta and inferior vena cava are normal in size. Miscellaneous: No ventral hernias. PELVIS: Genitourinary: Bladder wall thickness is normal. Miscellaneous: No inguinal hernias or adenopathy. Prominent sigmoid diverticulosis is present without acute diverticulitis. Bones: No suspicious bony lesions. No vertebral body compression fractures. IMPRESSION: 1. Interval increase in left exudative pleural effusion, and the pleural effusion on the right has a more simple character. Both pleural surfaces had shown mild pleural thickening and calcifications consistent with prior asbestos related pleural disease. 2. Within the left pleural space there are 2 separate areas of what appear to be loculated hydropneumothorax, near the apex posteriorly. The extra-pulmonary gas at the left apex measures up to approximately 5 cm in diameter. Please correlate clinically for whether a recent thoracentesis has been performed on the left. 3. Airspace disease at the left lung base is present, with alveolar consolidation and with volume loss. The pleural thickening and enhancement at the left hemithorax is associated with what appears to be an exudative pleural effusion. Given the pleural plaquing and calcification previously documented asbestos related pleural disease is a significant concern in this patient and mesothelioma must be considered as a potential underlying etiology. Thoracentesis for cytology may be warranted, thoracoscopic biopsy may also become necessary. 4. Scattered areas of pleural calcification and associated mediastinal and hilar calcified lymph nodes as a potential alternative etiology to the abnormalities present, to include granulomatous disease including potentially active granulomatous disease. 5. Small calcified gallstones are again noted within the gallbladder lumen of a size which easily good transit into the cystic duct or common duct. Dictated by: Michael Soria M.D. on 09/20/2018 at 9:02 Approved by: Michael Soria M.D. on 09/20/2018 at 9:14
[2018-09-20] MEDS: ASPIRIN EC 81 MG TABLET PO (09:26)
[2018-09-20] MEDS: ENOXAPARIN 40 MG/0.4 ML SYRINGE SUBCUT (09:27)
[2018-09-20] MEDS: DOCUSATE 100 MG CAPSULE PO ×2 (09:27→20:55)
[2018-09-20] MEDS: FUROSEMIDE 40 MG TABLET 80 MG PO ×2 (09:28→17:09)
[2018-09-20] MEDS: TERAZOSIN 1 MG CAPSULE 2 MG PO (09:28)
[2018-09-20] MEDS: ACETAMINOPHEN 325 MG TABLET 650 MG PO (09:29)
[2018-09-20] MEDS: SPIRONOLACTONE 50 MG TABLET PO (09:29)
--- NOTE | 2018-09-20 10:36 | OT.IP.TRT ---
Current Diagnoses Acute and chronic respiratory failure with hypoxia (09/20/18) Occupational Therapy Treatment Note M2 OT-IP Current Condition Start: 09/20/18 10:20 Freq: Status: Active Protocol: Document 09/20/18 10:20 [facility] (Rec: 09/20/18 10:35 [facility] [id number]) Occupational Therapy Current Condition Current Condition Treatment Diagnosis SOB, Hypoxic, bilateral pleural effusion Diagnosis Onset Date 09/20/18 Weight Bearing Status Weight Bearing Status Weight Bear as Tolerated M3 OT- IP Subjective and Pain Start: 09/20/18 10:20 Freq: Status: Active Protocol: Document 09/20/18 10:20 [facility] (Rec: 09/20/18 10:35 [facility] [id number]) OT- Subjective Occupational Therapy Visit Type Type Treatment Note Visit Start Time 08:35 Visit Stop Time 09:00 Total Visit Minutes 35 Notes Also seen from [id number] to go over energy conservation and deep breathing for SOB information. Occupational Therapy Visit Comments Patient Comments Pt willing to get up but after OT treatment with pt not wanting to have anymore OT as pt feels here just for medical needs. OT Pain Assessment Pain When Pain Assessed At Rest Pain Present Pain Present Denied Pain M6 OT- IP Functional Cognition Start: 09/20/18 10:20 Freq: Status: Active Protocol: Document 09/20/18 10:20 [facility] (Rec: 09/20/18 10:35 [facility] [id number]) Cognitive Factors Limiting Selfcare Function Cognitive Ability Level of Alertness Alert Patient Orientation Name Age Birthday Month Date Year Day of Week Place Situation Attention Span Ability Capable of Focused Attention Capable of Sustained Attention Ability to Follow Commands Able to Follow Multi-Step Commands Memory Description No Deficits Noted Safety Awareness No Deficits Noted Problem Solving Ability Needs Assist to Identify Solutions Cognitive Comments Cognitive Assessment Comments VC to slow rate of breathing and for purse lip breathing. OT- Vision and Hearing OT- Hearing Assessment OT- Hearing Assessment WFL OT- Vision Assessment Vision History Blindness Vision Assessment Comments Right eye blind M7 OT- IP Mobility and Balance Start: 09/20/18 10:20 Freq: Status: Active Protocol: Document 09/20/18 10:20 [facility] (Rec: 09/20/18 10:35 [facility] [id number]) OT-Transfer Assessment Sit to and From Stand Sit to and from Stand Contact Guard Assistance Transfers Transfer Ability Standby Assistance Contact Guard Assistance Comments Mobility Comments Pt not wanting to do bed transfer as just wanting to be in the hospital to focus of medical needs. Pt needing initial vc to scoot forwards in the recliner before standing and needing from CGA to SBA. OT- Gait Assessment Comments Gait Ability Comments Pt able to wawlk without cane SBA for short distances and quickly gets SOB, O2 drops to 85%. OT- Balance Assessment Sitting Balance and Reactions Static Sitting Balance Ability Normal Dynamic Sitting Balance Ability Normal Standing Balance and Reactions Static Standing Balance Ability Good M8 OT- IP Objective Assessments Start: 09/20/18 10:20 Freq: Status: Active Protocol: Document 09/20/18 10:20 [facility] (Rec: 09/20/18 10:35 [facility] [id number]) OT Gross Range of Motion Upper Extremity Range of Motion Assessment Within Functional Limits OT Strength Upper Extremity Strength Assessment Within Functional Limits M9 OT- IP Assessment and Plan Start: 09/20/18 10:20 Freq: Status: Active Protocol: Document 09/20/18 10:20 [facility] (Rec: 09/20/18 10:35 [facility] [id number]) OT Summary Assessment and Plan Summary Assessment Summary Pt here for hypoxia, bilateral effusion, and SOB. After OT treatment completed, made aware that pt to tranfer to [place] today for pulmonary needs. Pt educated for energy conservation and tips for shortness of breath.
--- NOTE | 2018-09-20 10:41 | PT.IIE ---
Current Diagnoses Acute and chronic respiratory failure with hypoxia (09/20/18) Surgical History (Last Reviewed 09/20/18 @ 01:48 by CARLY Romero) History of shoulder surgery (Acute) History of total bilateral knee replacement (Acute) AICD (automatic cardioverter/defibrillator) present (Acute) H/O prostatectomy (Acute) Medical History (Last Reviewed 09/20/18 @ 03:32 by Fran Sparks DO) History of retinal hemorrhage (Acute) Asbestos pleurisy (Acute) Complete heart block (Acute) HLD (hyperlipidemia) (Acute) HTN (hypertension) (Acute) Prostate CA (Acute) Physical Therapy Inpatient Evaluation/Re-Eval M1 PT/OT-IP Prior Functional Status Start: 09/20/18 10:11 Freq: NEEDED Status: Active Protocol: Document 09/20/18 08:35 (Rec: 09/20/18 10:41 [email or web address]) Medical Review Prior Functional Status Medical History Reviewed Yes Communication Unable to make a sentence >8 words due to SOB. Able to make needs known. Mobility and Gait Independent with mobility at home and community with a SPC as needed. Pt stated he has drag foot from time to time and difficulty reaching down to floor due to LBP. Activities of Daily Living and IADL's Independent for ADLs and IADLs . 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 Social History Household Members spouse children Living Arrangements House Number of Floors (Floors) One Floor Number of Stairs To Enter/Railing? 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 He has a history of asbestosis, pulmonary effusion , complete heart block status post AICD placement, hypertension, hyperlipidemia and prostate cancer status post prostatectomy who presents to the hospital for worsening shortness of breath for 1 week. Pt also states he sleeps in a chair due to dyspnea from supine position. M1 PT/OT-IP Prior Functional Status Start: 09/20/18 10:20 Freq: NEEDED Status: Active Protocol: Document 09/20/18 10:20 [facility] (Rec: 09/20/18 10:35 [facility] [email or web address]) Medical Review Prior Functional Status Medical History Reviewed Yes Communication Independent Mobility and Gait Pt states uses a SPC to walk due to decreased vision in right eye and due to paast two weeks increased SOB. 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 Social History Household Members spouse children Living Arrangements House Number of Stairs To Enter/Railing? no steps Home Environment Standard Height Toilet Walk in Shower Home Equipment Hand [facility] Director Sock Aid Grab Bars Near Toilet Additional Social History Comment Prior to 2 weeks pt independent with all needs. Pt does not drive due to right eye blind per pt. M2 PT-IP Current Condition Start: 09/20/18 10:11 Freq: NEEDED Status: Active Protocol: Document 09/20/18 08:35 (Rec: 09/20/18 10:41 [email or web address]) Physical Therapy Current Condition Current Condition Evaluation Date 09/20/18 Treatment Diagnosis L pleural effusion, Acute R CHF, impaired activity tolerance Onset Date 09/20/18 Weight Bearing Status Weight Bearing Status Weight Bear as Tolerated M3 PT-IP Subjective Start: 09/20/18 10:11 Freq: NEEDED Status: Active Protocol: Document 09/20/18 08:35 (Rec: 09/20/18 10:41 [email or web address]) Subjective Physical Therapy Visit Type Type Initial Evaluation Visit Start Time 08:35 Visit Stop Time 09:05 Total Visit Minutes 30 Notes Pt has heated high flow NC at 33% O2 on since 3 am this morning. SpO2 maintains at 97- 99%. Number of [employer] Visits 0 Physical Therapy Visit Comments Patient Comments Pt is up in chair with O2 therapy on. Agreeable to mobilize with PT. Patient Goals To be medically stable and return to home with family. Therapy Pain Assessment Pain Present Pain Present Denied Pain M4 PT-IP Mobility and Gait Start: 09/20/18 10:11 Freq: NEEDED Status: Active Protocol: Document 09/20/18 08:35 [facility] (Rec: 09/20/18 10:41 [email or web address]) PT-Transfer Assessment Sit to and From Stand Sit to and from Stand Contact Guard Assistance Use of Upper Extremities Equipment Transfer Assistive Device Gait Belt Straight Cane Orthotic/Prosthetic Devices or Brace: No Transfers Transfer Destination Bed Chair Transfer Technique Stand Step Pivot Transfer Ability Level of Assist Contact Guard Assistance Comments Mobility Comments pt's SpO2 at 97-99% with NC in seated position. RT permits to mobilize pt without O2 NC for trials. Pt appears SOB and unable to form sentence more than 8 words due to SOB. But pt appears Ax O x 4. Pt failed to stand up for the first 3 trials from bedside low chair but was able to perform it with CGA after by increasing trunk forward lean. Pt trasnfers between bed and chair without AD safely and steady. However, his SpO2 went down to 85% who also reports increased SOB and requested after STS multiple times. He was able to recover back to 90 -92% with pursed lip breathing . RT came in again to placed NC back on. Gait Assessment Gait Gait Assistance Required: Contact Guard Assist Distance (Feet) 15 Able to Maintain Weight Bearing Status Yes During Gait Assistive Devices Assistive Device Gait Belt Straight Cane Orthotic/Prosthetic Devices or Brace: No Gait Deviations General Gait Pattern Decreased Stride Length Decreased Feet Clearance Factors Limiting Gait Function Factors Limiting Gait Function Decreased Activity Tolerance Decreased Strength Poor Balance Poor Safety Awareness Comments Gait Comments Pt stood up from chair and amb without SPC. He states I feel pretty safe and i dont really need a walker. Pt amb around his room and returned to bed. for a approx 15 feet. Pt appears slight unsteady with decreased stride length for the first 5 feet but progressively improve his balance as distance increase. Pt reports of SOB after ambulation and primarily uses accessory breathing. PT-Balance Assessment Sitting Balance and Reactions Static Sitting Balance Ability Normal Dynamic Sitting Balance Ability Normal Standing Balance and Reactions Static Standing Balance Ability Good Dynamic Standing Balance Ability Good M5 PT-IP Objective Assessments Start: 09/20/18 10:11 Freq: NEEDED Status: Active Protocol: Document 09/20/18 08:35 (Rec: 09/20/18 10:41 [email or web address]) Orientation Orientation/Cognition Level of Alertness Alert Orientation Name Age Birthday Month Date Year Day of Week Place Situation Language Function Ability No Deficits Noted Safety Awareness Understands Safety Issues Memory Description No Deficits Noted Gross Range of Motion Upper Extremity ROM Assessment Within Functional Limits Lower Extremity ROM Assessment Within Functional Limits Strength Upper Extremity Strength Assessment Within Functional Limits Lower Extremity Strength Assessment Within Functional Limits Coordination Assessment Gross Coordination Gross Coordination WNL Sensation Assessment Sensation Gross Sensation WNL Muscle Tone Muscle Tone WNL Yes M6 PT-IP Treatment Start: 09/20/18 10:11 Freq: NEEDED Status: Active Protocol: Document 09/20/18 08:35 [facility] (Rec: 09/20/18 10:41 [email or web address]) Physical Therapy Treatment Education Education Provided Safety M7 PT-IP Assessment and Plan Start: 09/20/18 10:11 Freq: NEEDED Status: Active Protocol: Document 09/20/18 08:35 [facility] (Rec: 09/20/18 10:41 [facility] [email or web address]) PT Summary Assessment and Plan Potential Rehabilitation Potential Good Status of Condition at Evaluation Evolving Summary Impairments Pain ROM Strength Balance Bed Mobility Transfers Gait Activity Tolerance Assessment Summary Pt is low complexity with overall SBA/ CGA for functional mobility. His primary complaint and concern at this point are low activity tolerance and ongoing SOB due to pleural effusion, CHF and asbestosis. Pt desat to 85% without NC and was only able to recover to 92% with deep breathing exercise. Pt is not safe to go home yet due to unstable SpO2. He will benefit from skilled therapy (with RT as well) to optimize his cardiovascular capacity for functional mobility prior to d /c home. Goals Bed Mobility Goal Independent Transfer Goal Independent Cane Gait Goal Independent Cane Gait Distance 200 Days to Meet Goals 3 Frequency of Treatment Frequency Of Treatment Once a Day Treatment Plan Physical Therapy Treatment Plan Bed Mobility Training Transfer Training Gait Training Therapeutic Exercise Discharge Planning Other Recommendations and Next Treatment monitor VSS Focus gait training as [email or web address] Recommendations To Nursing Amount of Assist Needed Standby Assistance Discharge Recommendations PT Discharge Recommendations Home with Assistance
--- NOTE | 2018-09-20 11:25 | PC.NURSE ---
Addendum entered by Evangelina Marrero R.N. 09/20/18 13:14: PROCEDURE - Taken via wc / 3-4L for thoracentesis. Original Note: AM NOTE - up to chair before breakfast, did not sleep much last night, sob w/speech, humidified, heated high flow cannula, setting fio2 35%, flow 45, sat 96%, bs dim throughout l upper to lower, 2+ moises pedal edema, hr 96 w/murmur, denies pain to CT this am, on 4L NC, 91% when returned and RT in for eval, will continue heated high flow, echo done.
--- NOTE | 2018-09-20 11:35 | DI.US.S_ITS ---
PROCEDURE: US THORACENTESIS INDICATIONS: PLEURAL EFFUSION; THERAPEAUTIC TECHNIQUE: The indications, alternatives, benefits, risks, and complications of the procedure were explained to the patient. Written informed consent was obtained and placed in the chart. The chest was examined sonographically, and an appropriate site was chosen for thoracentesis. The skin was prepared and draped in the usual sterile fashion, and 1% lidocaine was infiltrated from the skin down through the pleural surface. A 19-gauge catheter-covered needle was then introduced into the pleural space, the catheter was advanced and the needle was withdrawn, and thereafter pleural fluid was aspirated. The catheter was then removed and a dressing was applied. COMPARISON: None. FINDINGS: Access site: Right hemithorax. Needle: One-Step centesis catheter with introducer needle. Fluid volume and description: 1300 cc of serosanguineous fluid Fluid sent for diagnostic testing: Not requested Medications: 1% lidocaine for local anaesthesia. Complications: None; post-procedural chest radiograph is pending to assess for pneumothorax. IMPRESSION: Successful ultrasound-guided thoracentesis. Dictated by: Ag Ricardo M.D. on 09/20/2018 at 14:04 Approved by: Ag Ricardo M.D. on 09/20/2018 at 14:08
--- NOTE | 2018-09-20 11:36 | P.PN_ITS ---
Subjective Date Patient Seen: 09/20/18 Time Patient Seen: 11:36 Interval history: He is seen today to follow-up his bilateral pleural effusions, postoperative air collections in the thorax, dyspnea and progressive shortness of breath. He says he feels better than when he came in last night. I have reviewed his chest x-ray, showing the bibasilar infiltrates and also reviewed his CT scan several times, with several radiologists. I have also discussed the CT scans and reviewed the films with his thoracic surgeon who is a able to review the films but is out of the area right now. His echocardiogram has just been done, with the reading pending. He is being diuresed with Lasix and sp ironolactone and is wearing a high-flow oxygen nasal cannula device during my 1st visit but on subsequent visits is lying on his side in bed without wearing oxygen and appears to be more comfortable. He is very talkative. Exam Vital Signs (past 8 hours): - 09/20/18 04:58 09/20/18 06:59 09/20/18 08:35 Temperature 98.2 F 98.5 F Pulse Rate 93 H 92 H 94 H Respiratory Rate 18 20 22 Blood Pressure 150/92 H 139/85 Pulse Oximetry 97 98 Fraction of Inspired Oxygen 35 Oxygen Delivery Method Heated High Flow,Humidification Oxygen Flow Rate 45 Narrative Exam Narrative: He is alert and oriented x3. He appears to be in at least moderate distress from dyspnea. He is quite talkative. Heart is regular rate and rhythm with a 2/6 systolic ejection murmur. Lungs have diminished breath sounds at both bases. Extremities have 1+ pitting ankle edema bilaterally. Objective Labs Result Diagrams: 09/20/18 05:50 09/20/18 05:50 Labs: Laboratory Results - last 24 hr 09/19/18 09/19/18 09/19/18 22:05 22:05 22:05 WBC RBC Hgb Hct MCV MCH MCHC RDW Plt Count Neut % (Auto) Lymph % (Auto) [place] % (Auto) Eos % (Auto) Baso % (Auto) Neut # (Auto) Lymph # (Auto) [place] # (Auto) Eos # (Auto) Baso # (Auto) PT 12.2 INR 1.1 APTT 34 D ABG pH ABG pCO2 ABG pO2 ABG HCO3 ABG Total CO2 ABG O2 Saturation ABG Base Excess FiO2 Sodium 136 L Potassium 4.4 Chloride 99 Carbon Dioxide 28 BUN 18 Creatinine 0.90 Estimated GFR > 60.0 BUN/Creatinine Ratio 20.0 Glucose 109 Calcium 9.4 Magnesium Troponin I 0.017 B-Natriuretic Peptide Triglycerides Cholesterol LDL Cholesterol, Calc HDL Cholesterol Procalcitonin < 0.05 Chlamy pneumoniae PCR Adenovirus (PCR) B.parapertussis DNA PCR Coronavirus OC43 (PCR) Coronavirus HKU1 (PCR) Coronavirus 229E (PCR) Coronavirus NL63 (PCR) Human Metapneumovir PCR Influenza Type A (PCR) Influenza Type B (PCR) M. pneumoniae (PCR) Parainfluenza 1 (PCR) Parainfluenza 2 (PCR) Parainfluenza 3 (PCR) Parainfluenza 4 (PCR) RSV (PCR) Entero/Rhino (PCR) 09/19/18 09/19/18 09/20/18 22:05 22:05 00:27 WBC 4.8 RBC 4.30 L Hgb 10.7 L Hct 33.2 L MCV 77.3 L MCH 24.9 L MCHC 32.2 RDW 19.1 H Plt Count 263 Neut % (Auto) 75.9 H Lymph % (Auto) 10.2 L [place] % (Auto) 10.8 Eos % (Auto) 2.4 Baso % (Auto) 0.7 Neut # (Auto) 3700 Lymph # (Auto) 500 L [place] # (Auto) 500 Eos # (Auto) 100 Baso # (Auto) 0 PT INR APTT ABG pH ABG pCO2 ABG pO2 ABG HCO3 ABG Total CO2 ABG O2 Saturation ABG Base Excess FiO2 Sodium Potassium Chloride Carbon Dioxide BUN Creatinine Estimated GFR BUN/Creatinine Ratio Glucose Calcium Magnesium Troponin I B-Natriuretic Peptide 246 H Triglycerides Cholesterol LDL Cholesterol, Calc HDL Cholesterol Procalcitonin Chlamy pneumoniae PCR Not detected Adenovirus (PCR) Not detected B.parapertussis DNA PCR Not detected Coronavirus OC43 (PCR) Not detected Coronavirus HKU1 (PCR) Not detected Coronavirus 229E (PCR) Not detected Coronavirus NL63 (PCR) Not detected Human Metapneumovir PCR Not detected Influenza Type A (PCR) Not detected Influenza Type B (PCR) Not detected M. pneumoniae (PCR) Not detected Parainfluenza 1 (PCR) Not detected Parainfluenza 2 (PCR) Not detected Parainfluenza 3 (PCR) Not detected Parainfluenza 4 (PCR) Not detected RSV (PCR) Not detected Entero/Rhino (PCR) Not detected 09/20/18 09/20/18 09/20/18 00:37 05:50 05:50 WBC 6.6 RBC 4.46 L Hgb 11.1 L Hct 34.8 L MCV 78.0 L MCH 24.8 L MCHC 31.8 RDW 19.0 H Plt Count 271 Neut % (Auto) 87.9 H Lymph % (Auto) 4.0 L [place] % (Auto) 7.2 Eos % (Auto) 0.5 L Baso % (Auto) 0.4 Neut # (Auto) 5800 Lymph # (Auto) 300 L [place] # (Auto) 500 Eos # (Auto) 0 Baso # (Auto) 0 PT INR APTT ABG pH 7.40 ABG pCO2 46.3 H ABG pO2 60 L ABG HCO3 28 H ABG Total CO2 30 ABG O2 Saturation 90 L ABG Base Excess 3.0 H FiO2 21 Sodium 138 Potassium 4.7 Chloride 97 L Carbon Dioxide 32 BUN 16 Creatinine 0.90 Estimated GFR > 60.0 BUN/Creatinine Ratio 17.8 Glucose 118 H Calcium 9.8 Magnesium 1.9 Troponin I B-Natriuretic Peptide Triglycerides Cholesterol LDL Cholesterol, Calc HDL Cholesterol Procalcitonin Chlamy pneumoniae PCR Adenovirus (PCR) B.parapertussis DNA PCR Coronavirus OC43 (PCR) Coronavirus HKU1 (PCR) Coronavirus 229E (PCR) Coronavirus NL63 (PCR) Human Metapneumovir PCR Influenza Type A (PCR) Influenza Type B (PCR) M. pneumoniae (PCR) Parainfluenza 1 (PCR) Parainfluenza 2 (PCR) Parainfluenza 3 (PCR) Parainfluenza 4 (PCR) RSV (PCR) Entero/Rhino (PCR) 09/20/18 05:50 WBC RBC Hgb Hct MCV MCH MCHC RDW Plt Count Neut % (Auto) Lymph % (Auto) [place] % (Auto) Eos % (Auto) Baso % (Auto) Neut # (Auto) Lymph # (Auto) [place] # (Auto) Eos # (Auto) Baso # (Auto) PT INR APTT ABG pH ABG pCO2 ABG pO2 ABG HCO3 ABG Total CO2 ABG O2 Saturation ABG Base Excess FiO2 Sodium Potassium Chloride Carbon Dioxide BUN Creatinine Estimated GFR BUN/Creatinine Ratio Glucose Calcium Magnesium Troponin I B-Natriuretic Peptide Triglycerides 53 Cholesterol 180 LDL Cholesterol, Calc 111 H HDL Cholesterol 58 Procalcitonin Chlamy pneumoniae PCR Adenovirus (PCR) B.parapertussis DNA PCR Coronavirus OC43 (PCR) Coronavirus HKU1 (PCR) Coronavirus 229E (PCR) Coronavirus NL63 (PCR) Human Metapneumovir PCR Influenza Type A (PCR) Influenza Type B (PCR) M. pneumoniae (PCR) Parainfluenza 1 (PCR) Parainfluenza 2 (PCR) Parainfluenza 3 (PCR) Parainfluenza 4 (PCR) RSV (PCR) Entero/Rhino (PCR) Assessment & Plan Assessment & Plan narrative: 1. Acute on chronic hypoxic respiratory failure, present on admission -the patient presented with 1 week of worsening shortness of breath and worsening dyspnea on exertion. -multifactorial including asbestosis, left pleural effusion, congestive heart failure, likely pulmonary hypertension. -patient presents with air hunger minimally improved with supplemental oxygen, initially but now much better later today. -arterial blood gas reveals pH of 7.39, pCO2 46.3, PO2 of 60, base excess 3 and bicarbonate of 28.3. -still pending is the viral respiratory PCR. -will treat the underlying causes as discussed below. 2. Chronic congestive heart failure with preserved ejection fraction, present on admission. -patient also has history of congestive heart failure with preserved EF last documented on echo cardiogram 03/20/2018 with finding of normal LV function, EF of 60-65%, mildly dilated RV and severely dilated right atrium. -patient takes daily Lasix 80 mg and spironolactone 50 mg 3 times a week. He inexplicably stopped medications when he started having worsening breathing. -patient subsequently developed 2 to 3+ pitting edema to the levels of the knee. -on admission increased the Lasix to 60 mg twice daily -on admission increased the spironolactone to 50 mg daily. -will monitor electrolytes and renal function. -echocardiogram to evaluate for pulmonary artery hypertension has just been done with the reading pending. 3. 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 -chest x-ray identifies left pleural effusion encompassing the lower left half of the left chest. -pleural effusion may have worsened with cessation of diuretic therapy by patient. -patient has had previous thoracentesis in May with removal of 500 cc of fluid. -CT of the chest has been reviewed with Radiology and with thoracic surgery. He will be undergoing ultrasound-guided thoracentesis with left or right-sided to be determined based on the amount of fluid seen on ultrasound, per guidance of Dr. Owens. -Also discussed with Dr. Sullivan who agreed with transfer to thoracic surgery if this approach is not helpful -The patient confirms he is full code but would want his son Fabio Estrada to limit any prolonged ventilator dependence if he is unable to decide for himself. 4. Chronic asbestosis, presumed stable. -patient has history of asbestosis and prior left pleural effusion having undergone thoracentesis in May for removal of 500 cc of bloody drainage and subsequent to that a decortication procedure on the left in June. -chest x-ray on admission identifies bilateral pleural effusion. -patient with chronic shortness of breath reporting he has difficulty walking 1 block without stopping to rest at baseline. -patient has MDI inhaler of albuterol. Will have respiratory therapy consult and treat with teaching on using a spacer with his inhaler. -DuoNeb nebulizer every 6 hours while awake as needed -albuterol nebulizer every 2 hours while awake as needed -prednisone 40 mg by mouth daily. 5. Chronic Hypertension, active -the patient is taking furosemide 80 mg daily, and spironolactone 50 mg 3 times weekly. -the patient presents as hypertensive on arrival at 169/91 and upon arrival to the floor 162/98. -will reinstitute diuretic therapy as above and re-evaluate need for antihypertensives. 6. History of hyperlipidemia, presumed stable. -patient is not currently on cholesterol lowering medication. -total cholesterol is 180 with LDL of 111 this morning. 7. Prostate cancer, stable. -status post prostatectomy, patient with variable urinary pattern. -no evidence of recurrence. 8. Presence AICD stable. -patient with previous diagnosis of complete heart block. -EKG demonstrates regular paced rhythm. -patient reports no AICD firing. Quality VTE Deep Vein Thrombosis/Pulmonary Embolism Present on Admission: No
--- NOTE | 2018-09-20 18:52 | CM.SWNOTE ---
DCP: MOLDED GOODS INSPECTOR TRIMMER reviewed chart and attempted to provide initial DCP Assessment, however pt was sleeping. No other family members available. Weekend MOLDED GOODS INSPECTOR TRIMMER will need to f/u.
[2018-09-21 02:56] VITALS: BP 119/75; PULSE 90; RESP 20; TEMP 36.3; O2SAT 92
[2018-09-21 05:29] LABS: Add Manual Diff / Slide Review NO; Basophils Absolute Auto 0 /uL (0-100); Basophils Percent Auto 0.1 % (0-2); Eosinophils Absolute Auto 0 /uL (0-450); Eosinophils Percent Auto 0.1 % (2-4); Hematocrit 32.8 % (41-53); Hemoglobin 10.6 g/dL (13.5-17.5); Lymphocytes Absolute Auto 300 /uL (1100-4500); Lymphocytes Percent Auto 5.8 % (25-40); Mean Corpuscular HGB Conc 32.2 % (30-36); Mean Corpuscular Hemoglobin 24.8 PG (26-34); Mean Corpuscular Volume 77.1 fL (80-100); Monocytes Absolute Auto 800 /uL (0-900); Monocytes Percent Auto 12.8 % (3-14); Neutrophils Absolute Auto 4900 /uL (1500-7000); Neutrophils Percent Auto 81.2 % (50-75); Platelet Count 258 X10^3/uL (150-400); Red Blood Cell Count 4.26 X10^6/uL (4.5-5.9); Red Cell Distribution Width 19.1 % (11.6-14.8)
[2018-09-21 05:48] LABS: BUN Creatinine Ratio 18.2 (6-22); Blood Urea Nitrogen 20 mg/dL (9-20); Calcium 9.3 mg/dL (8.4-10.2); Carbon Dioxide 33 mmol/L (22-32); Chloride 95 mmol/L (98-107); Estimated Glomerular Filt Rate > 60.0 mL/min (>60); Glucose 99 mg/dL (80-110); HEMOLYSIS < 15 (0-50); Potassium 4.3 mmol/L (3.4-5.1); Sodium 136 mmol/L (137-145)
--- NOTE | 2018-09-21 08:22 | CM.DANOTE ---
Discharge Planning/Care Management DCP: assessment: case received, EMR reviewed and met with pt. Introduced self and role. Pt is an 78 year old male who admitted 6/7 to care of hospitalist team. Surgeon: Dr. Maher is consulting. Payer: Medicare and [employer] PCP: Dr. Marissa Terrazas Pt does have a thoracic surgeon that he sees in OUTPT setting. Pt is found lying in bed, looking comfortable and eager to talk. He notes he feels much better today, he is currently off o2. He has good family support, see template info below. Plan: consideration of a transfer if further thoracic care is needed. Dr. Garrison entered room during our conversation. He noted that pt was doing well today and would likely dc to home later today. Will be discussing further in Team Rounds. If home, pt will be picked up by family. CM Discharge Assessment Start: 09/21/18 08:19 Freq: Status: Active Protocol: Document 09/21/18 08:19 ITV (Rec: 09/21/18 08:22 ITV [id number]) Discharge Planning Assessment Advance Directives? Yes History Provided By Patient Medical Record Prior Living Arrangements Apartment/Condo Comment lives in duplex: he and his in one, his son, DIL and child in other apt someone is there / Household Members spouse children Willing to Return to Facility? No Review Status In Process Next Review Type Continued Stay Review
[2018-09-21] MEDS: TERAZOSIN 1 MG CAPSULE 2 MG PO (08:39)
[2018-09-21] MEDS: DOCUSATE 100 MG CAPSULE PO (08:39)
[2018-09-21] MEDS: SPIRONOLACTONE 50 MG TABLET PO (08:39)
[2018-09-21] MEDS: ASPIRIN EC 81 MG TABLET PO (08:39)
[2018-09-21] MEDS: predniSONE 20 MG TABLET 40 MG PO (08:39)
[2018-09-21] MEDS: ENOXAPARIN 40 MG/0.4 ML SYRINGE SUBCUT (08:39)
[2018-09-21] MEDS: ACETAMINOPHEN 325 MG TABLET 650 MG PO (08:40)
[2018-09-21] MEDS: FUROSEMIDE 40 MG TABLET 80 MG PO (08:40)
[2018-09-21 09:00] VITALS: O2SAT 92
[2018-09-21 09:14] VITALS: O2SAT 93
[2018-09-21] MEDS: SODIUM CHLORIDE 0.9% FLUSH 10 ML IV (10:15)
--- NOTE | 2018-09-21 10:24 | PC.NURSE ---
Addendum entered by Evangelina Marrero R.N. 09/21/18 13:00: DC - reviewed dc instructions with pt and family, script and paperwork provided, hep lock and tele removed, dressed and belongings gathered, clothing and cane, shoes, no other items, tsf to wc and escorted to family car. Original Note: AM NOTE - pt is alert, denies chest pain, sob present with speech and at rest, bs coarse r mid, dim l upper to lower and r lower, ra 92%, RT in this am, after breakfast discussed mobilization and budget specialist standby assist, pt ambul w/cane hallway, 02 sat 93%, did decr to 89%, pt needed to rest briefly and then able to continue ambulation w/sat maintaining 23004%.
--- NOTE | 2018-09-21 11:01 | PM.DS.1 ---
History of Present Illness Date Patient Seen: 09/21/18 Chief complaint: Diffulty Breathing Narrative: Mr. Jonas Estrada is an 78-year-old male patient with a history of asbestosis, pulmonary effusion, complete heart block status post AICD placement, hypertension, hyperlipidemia and prostate cancer status post prostatectomy who presents to the hospital for worsening shortness of breath for 1 week. Reports worsening dyspnea on exertion and it is now only able to make it as far as the bathroom without having to stop to rest. He has increased work of breathing with reported air hunger and cough that he describes is unchanged from typical. He reports having no recent sick contacts and has had no fevers or chills and denies nasal congestion or sore throat. He describes no chest pain and at present has a dry nonproductive cough. He reports no abdominal pain and has around abdomen that he states is no more distended than usual. He has no nausea vomiting and denies diarrhea but has a chronic issue with constipation. He denies dysuria and describes variable stream sometimes week sometimes robust and is status post prostatectomy He has had bilateral total knee replacements and right shoulder surgery. Upon arrival in the ER the patient is afebrile with a temperature of 97.9?, heart rate of 101, blood pressure 169/91, tachypneic with a respiratory rate of 24 saturating 97% on room air. On 2 L nasal cannula his respiratory rate diminished to 20 and his oxygen saturation went to 98%. Chest x-ray was taking which identifies left pleural effusion and additionally remarks on an enlarged heart which is not appreciated on review of the film. An ABG was obtained which reveals a pH of 7.39, pCO2 of 46.3, pCO2 of 60, base excess of 3 and a bicarb of 28.3. His calculated O2 saturation is 90%. On chemistries patient has a white count of 4.8 and is noted to have a microcytic hypochromic anemia with a hemoglobin of 3.2 and platelet with limits and his procalcitonin is less than 0.05. His chemistries are within normal limits with a BUN of 18 and creatinine is 0.9 and a nonfasting glucose of 109. The patient is admitted to the hospital for acute on chronic hypoxic respiratory failure. Discharge Providers Date of admission: 09/20/18 00:53 Discharge Date: 09/21/18 Primary care physician: Jaime Burns MD Consults: 09/20/18 01:26 Consult to Discharge Planning Routine Comment: 09/20/18 01:27 Consult to Occupational Therapy Evaluate & Treat Comment: Hypoxemia, debilitated Physician Instructions: Evaluate and treat Consult to Physical Therapy Evaluate & Treat Comment: Hypoxemia, debilitated Physician Instructions: Evaluate and Treat 09/20/18 01:28 Consult to Sponge Clipper Routine Comment: Pulmonary rehab Discharge provider: Lucien Garrison MD Summary Discharge Diagnosis: 1. Acute on chronic hypoxic respiratory failure 2. Chronic congestive heart failure with preserved ejection fraction 3. Left and right pleural effusion, present on admission 4. Chronic asbestosis, presumed stable. 5. Chronic Hypertension 6. History of hyperlipidemia 7. Prostate cancer 8. Presence AICD 9. Mitral valve chordae echogenicity 10. Moderate aortic stenosis stable Hospital Course: 1. Acute on chronic hypoxic respiratory failure, present on admission -the patient presented with 1 week of worsening shortness of breath and worsening dyspnea on exertion. -causes are multifactorial including asbestosis, left pleural effusion, congestive heart failure and valvular heart disease -patient presented with air hunger that improved somewhat with high-flow nasal cannula oxygen but ultimately returned to his normal steady state after thoracentesis of 1300 mL from the right lung. 2. Chronic congestive heart failure with preserved ejection fraction, present on admission. -the ejection fraction on yesterday's echocardiogram is normal but the moderate aortic stenosis and the mitral valve mobile echogenicity could be enough to predispose him to recurrent pleural effusions. Additional Lasix and spironolactone was given during this hospitalization. He will be discharged on his home doses which may need to be adjusted upward by his primary care. -patient takes daily Lasix 80 mg and spironolactone 50 mg 3 times a week. He inexplicably stopped medications when he started having worsening breathing. -patient subsequently developed 2 to 3+ pitting edema to the levels of the knee. -on admission increased the Lasix to 60 mg twice daily -on admission increased the spironolactone to 50 mg daily. 3. 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 -chest x-ray identifies left pleural effusion encompassing the lower left half of the left chest. -pleural effusion may have worsened with cessation of diuretic therapy by patient. -patient has had previous thoracentesis in May with removal of 500 cc of fluid. -CT of the chest has been reviewed with Radiology and with thoracic surgery. He underwent ultrasound-guided thoracentesis 1,300 ml right-sided as determined based on the amount of fluid seen on ultrasound, per guidance of Dr. Owens. 4. Chronic asbestosis, presumed stable. -patient has history of asbestosis and prior left pleural effusion having undergone thoracentesis in May for removal of 500 cc of bloody drainage and subsequent to that a decortication procedure on the left in June. -chest x-ray on admission identifies bilateral pleural effusion. -patient with chronic shortness of breath reporting he has difficulty walking 1 block without stopping to rest at baseline. -Will continue prednisone 40 mg by mouth daily until he see Dr. Burns in 3-4 days. 5. Chronic Hypertension, active -Will continue furosemide 80 mg daily, and spironolactone 50 mg 3 times weekly. 6. History of hyperlipidemia, presumed stable. -patient is not currently on cholesterol lowering medication. -total cholesterol is 180 with LDL of 111. 7. Prostate cancer, stable. -status post prostatectomy, patient with variable urinary pattern. -no evidence of recurrence. 8. Presence AICD stable. -patient with previous diagnosis of complete heart block. -EKG demonstrates regular paced rhythm. -patient reports no AICD firing. 9. Mitral valve chordae echogenicity -consider Cardiology consultation and [place]. 10. Moderate aortic stenosis stable Total time today of 45 minutes. Exam Vital Signs (past 8 hours): - 09/21/18 09:00 09/21/18 09:14 Pulse Oximetry 92 93 Fraction of Inspired Oxygen 35 Oxygen Delivery Method Room Air Oxygen Flow Rate 45 Narrative Exam Narrative: He is alert and oriented x3, in no apparent distress. Lungs have mild wheezing bilaterally. Heart has regular rate and rhythm with a 2/6 holosystolic murmur and there is trace ankle edema. He is very talkative. His vitals are stable and his O2 saturation is 92% on room air. Objective Labs Result Diagrams: 09/21/18 04:48 09/21/18 04:48 Labs: Laboratory Results - last 24 hr 09/21/18 09/21/18 04:48 04:48 WBC 6.0 RBC 4.26 L Hgb 10.6 L Hct 32.8 L MCV 77.1 L MCH 24.8 L MCHC 32.2 RDW 19.1 H Plt Count 258 Neut % (Auto) 81.2 H Lymph % (Auto) 5.8 L [place] % (Auto) 12.8 Eos % (Auto) 0.1 L Baso % (Auto) 0.1 Neut # (Auto) 4900 Lymph # (Auto) 300 L [place] # (Auto) 800 Eos # (Auto) 0 Baso # (Auto) 0 Sodium 136 L Potassium 4.3 Chloride 95 L Carbon Dioxide 33 H BUN 20 Creatinine 1.10 Estimated GFR > 60.0 BUN/Creatinine Ratio 18.2 Glucose 99 Calcium 9.3 Discharge Plan Discharge Plan Patient Disposition: Home Discharge comment: Follow up with Dr. Burns in 3-4 days. Discharge Med Rec/Prescriptions Prescriptions: New prednisone 20 mg Tablet 40 mg PO DAILY Qty: 7 RF: 0 Continued multivitamin Tablet 1 tab PO DAILY Qty: 0 RF: 0 fluticasone propion-salmeterol [Advair Diskus] 100 MCG/50 MCG blister with device 1 puff Inhalation PRN Qty: 0 RF: 0 terazosin 2 mg capsule 2 mg PO DAILY RF: 0 aspirin 325 mg Tablet 325 mg PO TID RF: 0 furosemide 40 mg Tablet 80 mg PO DAILY RF: 0 promethazine-codeine 6.25-10 mg/5 mL Syrup 5 ml PO PRN PRN (Reason: Cough) RF: 0 spironolactone 50 mg Tablet 1 dose PO DIRECTED RF: 0 clobetasol 0.05 % Cream 1 applic Topical DIRECTED RF: 0 Follow up/Referrals: Jaime Burns MD [Primary Care Provider] - Provider Discharge Instructions Diet: Regular Visit Report/Discharge Packet Instructions: DI for Hypoxia, DI for Pleural Effusion, Prednisone (By mouth) Discharge Data Primary Care Provider: Jaime Burns Attending Provider: Raphael Rodriguez Admit Date/Time: 09/20/18 00:53 Quality VTE Deep Vein Thrombosis/Pulmonary Embolism Present on Admission: No
--- NOTE | 2018-09-21 11:46 | PT.IPTN ---
Current Diagnoses Acute and chronic respiratory failure with hypoxia (09/20/18) Physical Therapy Treatment Note M2 PT-IP Current Condition Start: 09/20/18 10:11 Freq: NEEDED Status: Active Protocol: Document 09/20/18 08:35 HH (Rec: 09/20/18 10:41 HH [id number]) Physical Therapy Current Condition Current Condition Evaluation Date 09/20/18 Treatment Diagnosis L pleural effusion, Acute R CHF, impaired activity tolerance Onset Date 09/20/18 Weight Bearing Status Weight Bearing Status Weight Bear as Tolerated M3 PT-IP Subjective Start: 09/20/18 10:11 Freq: NEEDED Status: Active Protocol: Document 09/21/18 11:43 GGD (Rec: 09/21/18 11:46 GGD [id number]) Subjective Physical Therapy Visit Type Type Patient Refusal Notes Pt refused states he is D/C and has no needs. M4 PT
== END 2018-09-21 13:04 | disposition home or self-care (01) | DRG 186 ==
LOC: ED 09-20 00:19 → AC 09-20 01:01
PROVIDERS: Admitting Provider Nurse Practitioner Adult Health; Emergency Provider Emergency Medicine; Family Provider Family Medicine; PCP Family Medicine; Visit Provider Nurse Practitioner Adult Health
DX: J90 Pleural effusion, not elsewhere classified (principal); J96.21 Acute and chronic respiratory failure with hypoxia; I50.33 Acute on chronic diastolic (congestive) heart failure; I44.2 Atrioventricular block, complete; I11.0 Hypertensive heart disease with heart failure; J61 Pneumoconiosis due to asbestos and other mineral fibers; Z95.810 Presence of automatic (implantable) cardiac defibrillator; E78.5 Hyperlipidemia, unspecified; I35.0 Nonrheumatic aortic (valve) stenosis
CPT/HCPCS: 32555; 36415; 36591; 36600; 71045; 71260; 74177; 80048; 80061; 82805; 83735; 83880; 84145; 84484; 85025; 85610; 85730; 87633; 93005; 93041; 93306; 94640; 94760; 94762; 96374; 97161; 97530; 99284; 99285; J1650; J1940; Q9967

== ENCOUNTER → 2018-10-14 10:23 | Outpatient (CLI) | payer MEDICARE, OTHER, SELFPAY ==
[2018-09-20 01:40] VITALS: BMI 32.8
--- NOTE | 2018-10-14 | DI.RAD.S_ITS ---
PROCEDURE: XR CHEST 2V INDICATIONS: PLUERAL EFFUSION TECHNIQUE: 2 views of the chest were acquired. COMPARISON: [facility], CT, CT CHEST ABD PEL W CON, 09/20/2018, 7:57. [facility], CR, XR CHEST 1V, 09/20/2018, 13:27. FINDINGS: Surgical changes and devices: Dual-lead cardiac pacer and right shoulder arthroplasty Lungs and pleura: Small bilateral pleural effusions with adjacent atelectasis grossly unchanged. Possible mild improvement in aeration of the left lung base otherwise, bibasilar patchy opacities are grossly stable since 09/20/18. Air-fluid level projecting in the left upper lobe is also again noted and grossly unchanged, presumably loculated hydropneumothorax, although this appears slightly decreased in size. Mediastinum: Mediastinal contours are normal. Heart size is normal. Bones and chest wall: No suspicious bony abnormalities. Soft tissues appear unremarkable. IMPRESSION: Overall, grossly stable examination since 09/20/18. Dictated by: Ag Ricardo M.D. on 10/14/2018 at 11:06 Approved by: Ag Ricardo M.D. on 10/14/2018 at 11:10
== END ==
PROVIDERS: PCP Family Medicine; Visit Provider Family Medicine
DX: J90 Pleural effusion, not elsewhere classified (principal)
CPT/HCPCS: 71046

== ENCOUNTER → 2019-01-07 12:03 | Outpatient (CLI) | payer MEDICARE, OTHER, SELFPAY ==
[2018-09-20 01:40] VITALS: BMI 32.8
--- NOTE | 2019-01-07 | DI.RAD.S_ITS ---
PROCEDURE: XR LUMBAR SPINE 2-3V INDICATIONS: low back pain, Cervicalgia, Pleural effusion TECHNIQUE: 3 views of the lumbar spine were acquired. COMPARISON: [facility], , -SPINE 2-3 VIEWS, 02/14/2012, 9:45. FINDINGS: Bones: 5 [id number] vertebrae are present. There is minimal retrolisthesis of L2 on L3 and L3 on L4. No vertebral body compression fractures. No suspicious bony lesions. There is severe degenerative disc disease throughout the lumbar spine. Severe facet arthropathy at L2 L3, L3-L4, L4-L5 and L5-S1. Soft tissues: Overlying bowel gas pattern is normal. No suspicious soft tissue calcifications. IMPRESSION: Severe degenerative disc and facet disease. Dictated by: Trista Ambrosio M.D. on 01/07/2019 at 18:13 Approved by: Trista Ambrosio M.D. on 01/07/2019 at 18:16
--- NOTE | 2019-01-07 | DI.RAD.S_ITS ---
PROCEDURE: XR CHEST 2V INDICATIONS: low back pain, Cervicalgia, Pleural effusion TECHNIQUE: 2 views of the chest were acquired. COMPARISON: [facility], CR, XR CHEST 2V, 10/14/2018, 10:23. [facility], CR, XR CHEST 1V, 09/20/2018, 13:27. [facility], CR, XR CHEST 1V, 09/19/2018, 22:15. [facility], CR, XR CHEST 2V, 05/16/2018, 10:07. FINDINGS: Surgical changes and devices: Left chest dual-lead cardiac pacer device and right shoulder arthroplasty hardware are again demonstrated. Lungs and pleura: Small bilateral pleural effusions appear similar to prior exam of 10/14/18. There is a possible air-fluid level projecting over the left upper lobe which is slightly decreased in size from comparison exam 10/14/18. Left greater than right bilateral perihilar and bibasilar pulmonary opacities Mediastinum: Cardiac silhouette appears mildly enlarged but similar to prior exams. Bones and chest wall: No suspicious bony abnormalities. Moderate multilevel degenerative changes of the thoracolumbar spine noted. IMPRESSION: 1. Possible air-fluid level projecting over the left upper lobe is slightly decreased in size from prior exam of 10/14/18, and may represent a loculated pleural effusion versus a fluid collection such as an abscess. Consider CT of the chest there is clinical concern. 2. Similar bilateral pulmonary opacities and small bilateral pleural effusions likely representing pulmonary edema with adjacent atelectasis, although an underlying pneumonia could appear similar. Dictated by: Saurabh Khan M.D. on 01/07/2019 at 13:20 Approved by: Saurabh Khan M.D. on 01/07/2019 at 13:27
== END ==
PROVIDERS: PCP Family Medicine; Visit Provider Family Medicine
DX: J90 Pleural effusion, not elsewhere classified (principal); M54.5 Low back pain; M54.2 Cervicalgia; M47.816 Spondylosis without myelopathy or radiculopathy, lumbar region; M47.817 Spondylosis without myelopathy or radiculopathy, lumbosacral region; M47.815 Spondylosis without myelopathy or radiculopathy, thoracolumbar region; M51.36 Other intervertebral disc degeneration, lumbar region; Z95.0 Presence of cardiac pacemaker; Z96.611 Presence of right artificial shoulder joint
CPT/HCPCS: 71046; 72100

== ENCOUNTER 2019-03-25 14:26 | Emergency (ER) | payer MEDICARE, OTHER, SELFPAY ==
[2018-09-20 01:40] VITALS: BMI 32.8
[2019-03-25 14:33] VITALS: BP 147/82; PULSE 83; RESP 20; TEMP 36.8; O2SAT 96
--- NOTE | 2019-03-25 15:30 | DI.RAD.S_ITS ---
PROCEDURE: XR HAND RT MIN 3V INDICATIONS: nail injury TECHNIQUE: 3 views of the hand(s) acquired. COMPARISON: [facility], , HAND 3V LEFT, 05/04/2017, 17:35. FINDINGS: Bones: No displaced fractures or dislocations are identified involving the osseous structures of the hand. There is abnormal appearance of the base of the proximal phalanx of the 3rd digit with associated widening and a prominent lucency. Prominent degenerative cystic changes are noted involving the head of the 3rd metacarpal. A similar appearance, to a lesser degree is evident involving the 1st and 2nd metacarpal heads. Severe degenerative changes are present involving the basal joint of the thumb. Soft tissues: No suspicious soft tissue calcifications. Soft tissue swelling on the dorsal aspect of the hand is present at the carpometacarpal joints. IMPRESSION: 1. No displaced fractures. 2. No radiopaque foreign bodies. 3. Markedly abnormal appearance of the 3rd metacarpal and adjacent proximal phalanx of the 3rd digit. This may be related to previous injury with severe degenerative changes and degenerative cystic change. However, an enchondroma or other expansile lytic lesion cannot excluded. MRI of the hand with intravenous contrast is recommended for further evaluation. Dictated by: Carlos Guthrie M.D. on 03/25/2019 at 15:14 Approved by: Carlos Guthrie M.D. on 03/25/2019 at 15:20
[2019-03-25] MEDS: TET,DIPH,PERTUSS(ACELL),VAC/PF 0.5 ML SYRINGE IM (16:17)
[2019-03-25] MEDS: LIDO 1%/SOD BICARB 8.4% (10ML) 10 ML SYRINGE INJ (17:18)
[2019-03-25 17:24] VITALS: BP 127/75; PULSE 73; RESP 12; O2SAT 94
--- NOTE | 2019-03-25 21:23 | ED.WOUNDLAC ---
HPI - Wound/Laceration <LUIS Duran - Last Filed: 03/25/19 21:29> General Chief Complaint: Wound/Laceration Stated Complaint: right hand injury Time Seen by Provider: 03/25/19 15:18 Source: patient Mode of arrival: Ambulatory Limitations: no limitations History of Present Illness HPI narrative: The patient is a delightful 78-year-old male nonsmoker with history of shortness of breath who presents with a chief complaint of laceration to his right hand. He states he caught the back with plan on a nail and has a cut down it. He states he has full range of motion, is not concerned about foreign bodies. He does not know when his last tetanus was. He does state that he has a history of a ?knuckle replacement and is 3rd finger of his right hand. He tried butterfly at home, but states when he saw things moving under his skin he thought he should come in to have it looked at. Related Data Home Medications Medication Instructions Recorded Confirmed multivitamin 1 tab PO DAILY #0 04/13/11 09/19/18 fluticasone propion-salmeterol 1 puff INHALATION PRN #0 01/17/12 09/19/18 [Advair Diskus] clobetasol 1 applic TOPICAL DIRECTED 08/14/17 09/19/18 furosemide 80 mg PO DAILY 08/14/17 03/25/19 promethazine-codeine 5 ml PO PRN PRN 08/14/17 03/25/19 spironolactone 50 mg PO MOWEFR 08/14/17 03/25/19 aspirin 325 mg PO TID 03/25/18 09/19/18 terazosin 2 mg PO DAILY 03/25/18 09/19/18 brimonidine 1 drp OPHTHALMIC (EYE) TID 03/25/19 03/25/19 oxycodone-acetaminophen 1 tab PO Q6H PRN 03/25/19 03/25/19 Previous Rx's Medication Instructions Recorded prednisone 40 mg PO DAILY #7 tab 09/21/18 Allergies Allergy/AdvReac Type Severity Reaction Status Date / Time No Known Drug Allergies Allergy Verified 08/14/17 10:39 Review of Systems <LUIS Duran - Last Filed: 03/25/19 21:29> Review of Systems Narrative: GENERAL: Denies chills, fatigue, malaise, fever, sweats. HEENT: Denies sinus pain, ear pain, sore throat, difficulty swallowing, dizziness. RESPIRATORY: Denies dyspnea, cough, wheezing, hemoptysis, sputum. CARDIOVASCULAR: Denies chest pain, palpitations, orthopnea, edema, GASTROINTESTINAL: Denies nausea, vomiting, abdominal pain, diarrhea, constipation, melena. : Denies dysuria, frequency, incontinence, hematuria, urinary retention. MUSCULOSKELETAL: See HPI SKIN: See HPI NEUROLOGIC: Denies weakness, headache, numbness, change in speech, confusion, seizures, incoordination. PSYCHIATRIC: No concerning psychosocial issues. 12 point review of systems is negative except for those stated above Patient History <LUIS Duran - Last Filed: 03/25/19 21:29> Medical History Asbestos pleurisy (Acute) Complete heart block (Acute) History of retinal hemorrhage (Acute) HLD (hyperlipidemia) (Acute) HTN (hypertension) (Acute) Prostate CA (Acute) Surgical History AICD (automatic cardioverter/defibrillator) present (Acute) H/O prostatectomy (Acute) History of shoulder surgery (Acute) History of total bilateral knee replacement (Acute) Social History household members: spouse and children Smoking Status: Never smoker alcohol intake: former Smoking Status: Never smoker alcohol intake frequency: 0-2 drinks per day Substance Use Type: does not use Exam <LUIS Duran - Last Filed: 03/25/19 21:29> Narrative Exam Narrative: GENERAL: This is a well-nourished, well-developed patient, in mild distress. HEAD: Atraumatic. Normocephalic. No temporal or scalp tenderness. EYES: Pupils equal round and reactive. Extraocular motions intact. No scleral icterus. No injection or drainage. ENT: Nose without bleeding, purulent drainage or septal hematoma. Throat without erythema, tonsillar hypertrophy or exudate. Uvula midline. Airway patent. NECK: Trachea midline. No JVD or lymphadenopathy. Supple, nontender, no meningeal signs. CARDIOVASCULAR: Regular rate and rhythm RESPIRATORY: No cough. No increased respiratory effort. No accessory muscle use. EXTREMITIES: Full range of motion noted for patient right hand. Positive radial pulses. Capillary refill less than 2 seconds. BACK: Nontender without deformity or crepitance. No flank tenderness. NEURO: AOx3. SKIN: 5 cm irregular jagged laceration noted to dorsum of right hand at the base of digits. No obvious foreign body. No obvious muscle or tendon involvement. Oozing blood. Small skin tear on lateral aspect Initial Vital Signs Initial Vital Signs: Vital Signs Temperature 98.3 F 03/25/19 14:33 Pulse Rate 83 03/25/19 14:33 Respiratory Rate 20 03/25/19 14:33 Blood Pressure 147/82 H 03/25/19 14:33 Pulse Oximetry 96 03/25/19 14:33 <Melissa Groves DO - Last Filed: 03/28/19 07:05> Initial Vital Signs Initial Vital Signs: Vital Signs Temperature 98.3 F 03/25/19 14:33 Pulse Rate 83 03/25/19 14:33 Respiratory Rate 20 03/25/19 14:33 Blood Pressure 147/82 H 03/25/19 14:33 Pulse Oximetry 96 03/25/19 14:33 Procedures <LUIS Duran - Last Filed: 03/25/19 21:29> Laceration Repair Laceration 1: Site: hand Side (If applicable): right Size (cm): 5 Description: irregular Depth: simple, single layer Local Anesthetic: lidocaine 1% and with epi Amount of anesthesia used (mL): 4 Pre-repair: wound explored, irrigated extensively (With iodine and Hibiclens) and deep structures intact Skin layer closed with: vicryl Size (cm): 5-0 Number of sutures: 7 Technique: simple, interrupted Course <LUIS Duran - Last Filed: 03/25/19 21:29> Orders Ordered: Discontinued Medications Diphtheria/Tetanus/Acell Pertussis (Adacel) 0.5 ml IM .ONCE ONE Stop: 03/25/19 15:31 Last Admin: 03/25/19 16:17 Dose: 0.5 ml Documented by: RAI Lidocaine/Sodium Bicarbonate (Buffered Lidocaine 10 Ml Syr) 10 ml INJ NOW ONE Stop: 03/25/19 16:43 Last Admin: 03/25/19 17:18 Dose: 3 ml Documented by: RAI Vital Signs Vital signs: Vital Signs - 8 hr 03/25/19 14:33 03/25/19 17:24 Temperature 98.3 F Pulse Rate 83 73 Respiratory Rate 20 12 Blood Pressure 147/82 H Blood Pressure [Left Arm] 127/75 Pulse Oximetry 96 94 <Melissa Groves DO - Last Filed: 03/28/19 07:05> Orders Ordered: Discontinued Medications Diphtheria/Tetanus/Acell Pertussis (Adacel) 0.5 ml IM .ONCE ONE Stop: 03/25/19 15:31 Last Admin: 03/25/19 16:17 Dose: 0.5 ml Documented by: RAI Lidocaine/Sodium Bicarbonate (Buffered Lidocaine 10 Ml Syr) 10 ml INJ NOW ONE Stop: 03/25/19 16:43 Last Admin: 03/25/19 17:18 Dose: 3 ml Documented by: RAI Vital Signs Vital signs: Vital Signs - 8 hr 03/25/19 14:33 03/25/19 17:24 Temperature 98.3 F Pulse Rate 83 73 Respiratory Rate 20 12 Blood Pressure 147/82 H Blood Pressure [Left Arm] 127/75 Pulse Oximetry 96 94 MDM - Wound/Laceration <LUIS Duran - Last Filed: 03/25/19 21:29> Imaging Data Hand x-ray: Radiologist's impression: Jonas Estrada 78 M [address] [address] XRay Report Signed Patient: Jonas Estrada LMR#: [id number] : [id number]:[id number] Age/Sex: 78 / MDate of Service: 03/25/19 Loc: ED Accession Number: [id number] Procedure: XR hand RT min 3V Ordering Provider: Zandra Melvin PROCEDURE: XR HAND RT MIN 3V INDICATIONS: nail injury TECHNIQUE: 3 views of the hand(s) acquired. COMPARISON: [facility], , HAND 3V LEFT, 05/04/2017, 17:35. FINDINGS: Bones: No displaced fractures or dislocations are identified involving the osseous structures of the hand. There is abnormal appearance of the base of the proximal phalanx of the 3rd digit with associated widening and a prominent lucency. Prominent degenerative cystic changes are noted involving the head of the 3rd metacarpal. A similar appearance, to a lesser degree is evident involving the 1st and 2nd metacarpal heads. Severe degenerative changes are present involving the basal joint of the thumb. Soft tissues: No suspicious soft tissue calcifications. Soft tissue swelling on the dorsal aspect of the hand is present at the carpometacarpal joints. IMPRESSION: 1. No displaced fractures. 2. No radiopaque foreign bodies. 3. Markedly abnormal appearance of the 3rd metacarpal and adjacent proximal phalanx of the 3rd digit. This may be related to previous injury with severe degenerative changes and degenerative cystic change. However, an enchondroma or other expansile lytic lesion cannot excluded. MRI of the hand with intravenous contrast is recommended for further evaluation. Dictated by: Carlos Guthrie M.D. on 03/25/2019 at 15:14 Approved by: Carlos Guthrie M.D. on 03/25/2019 at 15:20 [facility] Narrative Medical decision making narrative: The patient is an 78-year-old male who presents with a chief complaint of laceration. X-ray shows no acute fractures, though he does have a markedly abnormal appearance of his 3rd metacarpal. I discussed this with the patient he states it is likely related to his ?replacement.X-ray shows no fractures or foreign bodies. Tetanus was updated. Wound was closed as per procedural note tolerated well. Discussed at length monitoring for signs and symptoms of infection, following up for suture removal in 7 days. Patient has no questions or concerns upon discharge and states understanding of return precautions as well as follow-up care. Discharge Plan Departure Patient Disposition: Home Clinical Impression: Laceration Discharge Date/Time: 03/25/19 17:48 Instructions: How to Care for a Laceration After Repair, DI for Laceration Repair, DI for Minor Laceration Activity Restrictions/Additional Instructions: Please monitor for signs and symptoms of infection please include redness, pus etcetera. Please keep your laceration clean and dry. Please rest her hand to not pull on your sutures. Please follow up for suture removal in approximately 7 days. Please come back to the emergency department for any acute concerns. As discussed your 3rd finger looks abnormal on x-ray . Radiology recommends follow-up regarding this. Prescriptions: No Action multivitamin Tablet 1 tab PO DAILY Qty: 0 RF: 0 fluticasone propion-salmeterol [Advair Diskus] 100 MCG/50 MCG blister with device 1 puff Inhalation PRN Qty: 0 RF: 0 terazosin 2 mg capsule 2 mg PO DAILY RF: 0 aspirin 325 mg Tablet 325 mg PO TID RF: 0 furosemide 40 mg Tablet 80 mg PO DAILY RF: 0 promethazine-codeine 6.25-10 mg/5 mL Syrup 5 ml PO PRN PRN (Reason: Cough) RF: 0 spironolactone 50 mg Tablet 50 mg PO MOWEFR RF: 0 clobetasol 0.05 % Cream 1 applic Topical DIRECTED RF: 0 prednisone 20 mg Tablet 40 mg PO DAILY Qty: 7 RF: 0 oxycodone-acetaminophen 5-325 mg tablet 1 tab PO Q6H PRN (Reason: PAIN) RF: 0 brimonidine 0.2 % drops 1 drp ophthalmic (eye) TID RF: 0 Referrals: Jaime Burns MD [Primary Care Provider] -
== END 2019-03-25 17:48 | disposition home or self-care (01) ==
PROVIDERS: Emergency Provider Nurse Practitioner Family; PCP Family Medicine
DX: S61.411A Laceration without foreign body of right hand, initial encounter (principal); W45.0XXA Nail entering through skin, initial encounter; Z23 Encounter for immunization
CPT/HCPCS: 12002; 73130; 90471; 99281; 99282; 99283; 90715

== ENCOUNTER → 2019-04-08 09:49 | Outpatient (CLI) | payer MEDICARE, OTHER, SELFPAY ==
[2018-09-20 01:40] VITALS: BMI 32.8
--- NOTE | 2019-04-08 | DI.RAD.S_ITS ---
PROCEDURE: XR CHEST 2V INDICATIONS: Pleural effusion, not elsewhere classified TECHNIQUE: 2 views of the chest were acquired. COMPARISON: [facility], , XR CHEST 2V, 01/07/2019, 12:13. [facility], CR, XR CHEST 2V, 10/14/2018, 10:23. CT chest, abdomen and pelvis 09/20/2018. FINDINGS: Surgical changes and devices: Left pacemaker with right atrial and right ventricular leads, unchanged. Lungs and pleura: Mild diffuse airspace opacity most pronounced in the left lung base. There is a small loculated left apex pleural effusion with small hydropneumothorax. This is also seen on CT from September of 2018 and appears decreased in size. No pneumothorax in the right. Blunting of the bilateral costophrenic angles. Mediastinum: Mediastinal contours appear stable. Heart size is partially obscured. Bones and chest wall: No suspicious bony abnormalities. Right shoulder arthroplasty. Soft tissues appear unremarkable. IMPRESSION: 1. Mild diffuse airspace opacity most pronounced in the left lung base. Overall this is similar to the prior exam from December. 2. Left apex hydropneumothorax, decreased. 3. Small bilateral pleural effusions. Dictated by: Jimmy Mena M.D. on 04/08/2019 at 10:36 Approved by: Jimmy Mena M.D. on 04/08/2019 at 10:42
== END ==
PROVIDERS: PCP Family Medicine; Visit Provider Family Medicine
DX: J90 Pleural effusion, not elsewhere classified (principal); Z95.0 Presence of cardiac pacemaker
CPT/HCPCS: 71046

== ENCOUNTER 2019-08-01 15:41 | Inpatient (IN) | payer MEDICARE, OTHER, SELFPAY ==
[2018-09-20 01:40] VITALS: BMI 32.8
[2019-08-01] VITALS (11 sets, daily range): BP systolic 102–139; BP diastolic 62–91; PULSE 79–95; RESP 16–24; TEMP 36.1–36.9; O2SAT 93–97; BMI 28.1
--- NOTE | 2019-08-01 15:57 | DI.RAD.S_ITS ---
PROCEDURE: XR CHEST 1V INDICATIONS: GI bleed, sob TECHNIQUE: One view of the chest was acquired. COMPARISON: [facility], CR, XR CHEST 1V, 09/20/2018, 13:27. [facility], CR, XR CHEST 2V, 04/08/2019, 9:48. FINDINGS: Surgical changes and devices: Pacemaker and right shoulder arthroplasty. Lungs and pleura: Patchy areas of bilateral pulmonary opacity are present, unchanged compared to 04/08/19. Trace effusions are present, left greater than right. Mediastinum: Mediastinal contours appear normal. Heart size is enlarged. Bones and chest wall: No suspicious bony lesions. Overlying soft tissues appear unremarkable. IMPRESSION: Bilateral pulmonary opacities which are unchanged since 2019. It is unknown if these are reoccurred opacities as related to new airspace disease such as pneumonia, areas of pulmonary scarring and/or unresolved from previous exam. Dictated by: Andreina Mcgrath M.D. on 08/01/2019 at 16:10 Approved by: Andreina Mcgrath M.D. on 08/01/2019 at 16:28
--- NOTE | 2019-08-01 15:58 | ED.GIBLEED ---
HPI - GI Bleed <CARLY Soliz - Last Filed: 08/02/19 00:43> General Chief complaint: GI Bleed Stated complaint: passing blood Time Seen by Provider: 08/01/19 15:50 Source: patient Mode of arrival: Ambulatory Limitations: no limitations History of Present Illness HPI Narrative: This is a 79-year-old male, nonsmoker, who presents to ED with rectal bleeding which started at 2:00 p.m. today. Patient reports he fell something wet on his bottom and noticed dark color bleeding. Patient had bowel movements and took a shower before coming into ED and continue to have dark, purple color bleeding through rectum. Patient has history of GI bleed about 10-15 years ago. Last colonoscopy about 5 years ago and had polyps removed. Patient reports some abdominal cramping but denies chest pain, dizziness. Patient reports short of breath which she has daily from asbestosis. Patient reports he takes a full dose aspirin daily after he developed blood clots in his right eye. Patient reports hypertension, chronic back pain. Last meal was at 1:45 p.m. he had peanut butter and honey sandwich. Patient has history of hemorrhoids and bleeding but usually this is bright red blood and not like today's dark/purple color blood. Related Data Home Medications Medication Instructions Recorded Confirmed multivitamin 1 tab PO DAILY #0 04/13/11 08/02/19 fluticasone propion-salmeterol 1 puff INHALATION PRN #0 01/17/12 08/02/19 [Advair Diskus] clobetasol 1 applic TOPICAL DIRECTED 08/14/17 09/19/18 furosemide 80 mg PO DAILY 08/14/17 08/02/19 promethazine-codeine 5 ml PO PRN PRN 08/14/17 03/25/19 spironolactone 50 mg PO MOWEFR 08/14/17 08/02/19 aspirin 325 mg PO TID 03/25/18 08/02/19 terazosin 2 mg PO DAILY 03/25/18 08/02/19 brimonidine 1 drp OPHTHALMIC (EYE) TID 03/25/19 03/25/19 oxycodone-acetaminophen 1 tab PO Q6H PRN 03/25/19 08/02/19 Allergies Allergy/AdvReac Type Severity Reaction Status Date / Time No Known Drug Allergies Allergy Verified 08/01/19 16:02 Review of Systems <CARLY Soliz - Last Filed: 08/02/19 00:43> Review of Systems Narrative: General: Denies fever, chills, fatigue, malaise, sweats. HEENT: Denies sinus pain, ear pain, sore throat, difficulty swallowing, dizziness. Respiratory: Denies dyspnea, cough, wheezing, hemoptysis, sputum. Cardiovascular: Denies chest pain, palpitations, orthopnea, edema. Gastrointestinal: See HPI : Denies dysuria, frequency, incontinence, hematuria, urinary retention. Musculoskeletal: Denies weakness, joint pain or bony pain. Skin: Denies rash, skin lesions, or other. Neurologic: Denies weakness, headache, numbness, change in speech, confusion, seizures, incoordination. Psychiatric: No concerning psychosocial issues. 12-point review of systems is negative except for those stated above. Patient History <CARLY Soliz - Last Filed: 08/02/19 00:43> Medical History Asbestos pleurisy (Acute) Colon polyps (Acute) Complete heart block (Acute) GI bleed (Acute) History of retinal hemorrhage (Acute) HLD (hyperlipidemia) (Acute) HTN (hypertension) (Acute) Prostate CA (Acute) Surgical History AICD (automatic cardioverter/defibrillator) present (Acute) H/O prostatectomy (Acute) History of shoulder surgery (Acute) History of total bilateral knee replacement (Acute) Social History household members: spouse and children Smoking Status: Never smoker alcohol intake: former Smoking Status: Never smoker alcohol intake frequency: 0-2 drinks per day Substance Use Type: does not use Exam <CARLY Soliz - Last Filed: 08/02/19 00:43> Narrative Exam Narrative: GEN: Alert, oriented x 3, well appearing and nourished, and in no acute distress. Head: Normal cephalic, atraumatic. No scalp or temporal tenderness, palpable mass or rash. EYES: Pupils are equal, round, and reactive to light and accommodation. Light/pale palpebral conjunctiva. Extraocular muscles are intact bilaterally. Patient reports only can see light and faint shapes through right eye. There is no subconjunctival hemorrhage, exudate and sclera non-icteric. ENT: Slightly difficulty with Hearing. Nose without bleeding, purulent discharge or deviation. Facial sinuses nontender to palpate. Mucous membrane dry, no mucosal lesion. Throat without erythema, tonsillar hypertrophy or exudate. Uvula in midline, airway patent. Neck: Trachea in midline. No JVD, non-tender without lymphadenopathy. No masses or thyroid megaly. Supple, non-tender and no meningeal signs. CARDIAC: Normal regular rate and rhythm with murmurs. No gallops, or rubs. No chest wall tenderness. No peripheral edema, cyanosis or pallor. Capillary refill is less than 2 seconds. RESPIRATORY: Lungs are clear to auscultate bilaterally. No cough, wheezes, rales, or rhonchi. Audible wheezing noted however without a stethoscope. No stridor, respiratory distress, increase work of breathing, or accessary muscle used. ABD: Abdomen soft, nontender and non-distended. No guarding or rebound tenderness to palpate. Bowel sounds are normal in all 4 quadrants. There is no palpable masses or organomegaly. Maroon color dark blood in rectum noted during rectal exam. No external or internal hemorrhoids appreciated per palpation. EXT: Full painless ROM of all extremities with no loss of sensation, strength, effusion or edema. SKIN: Warm, dry, normal color for patient. No erythema, lesions or rash over visible areas. BACK: Nontender without deformity or crepitance. No flank tenderness. NEUROLOGICAL: Alert and oriented to place, time and person. Sensation and motor function intact bilaterally. No facial droops, dysphasia. PSYCHIATRIC: Good judgement and reason, without hallucinations, abnormal affect or abnormal behaviors during the examination. Initial Vital Signs Initial Vital Signs: Vital Signs Pulse Rate 85 08/01/19 16:00 Respiratory Rate 24 08/01/19 16:00 Pulse Oximetry 97 08/01/19 16:00 <Zandra White, DO - Last Filed: 08/02/19 07:24> Initial Vital Signs Initial Vital Signs: Vital Signs Pulse Rate 85 08/01/19 16:00 Respiratory Rate 24 08/01/19 16:00 Pulse Oximetry 97 08/01/19 16:00 Scores <[facility] - Last Filed: 08/02/19 00:43> GCS Dean coma scale eye opening: Spontaneous [place] coma scale verbal response: Orientated [place] coma scale motor response: Obey commands [place] coma scale total score: 15 Course <[facility] - Last Filed: 08/02/19 00:43> Orders Ordered: Brimonidine Tartrate (Alphagan P 0.2%) 1 drops EYE-BOTH TID [facility] Last Admin: 08/01/19 21:21 Dose: Not Given Documented by: HFORBES Furosemide (Lasix) 80 mg PO DAILY ASHELY Sodium Chloride (Normal Saline 0.9%) 1,000 mls @ 1,000 mls/hr IV BOLUS ONE Stop: 08/02/19 07:56 Oxycodone/Acetaminophen (Percocet 5/325) 1 tab PO Q6H PRN PRN Reason: PAIN Pantoprazole Sodium (Protonix) 40 mg IV BID ASHELY Polyethylene Glycol/Electrolytes (Golytely Solution) 4,000 ml PO NOW ONE Stop: 08/02/19 14:01 Fluticasone/Salmeterol (Advair 100/50 Diskus) 1 puff INH DAILY PRN PRN Reason: difficulty breathing Spironolactone (Aldactone) 50 mg PO MoWeFr@0900 ASHELY Terazosin HCl (Hytrin) 2 mg PO BEDTIME ASHELY Discontinued Medications Sodium Chloride (Normal Saline 0.9%) 1,000 mls @ 150 mls/hr IV CONT [facility] Last Infusion: 08/01/19 20:05 Dose: 0 mls/hr Documented by: [email or web address] Admin: 08/01/19 16:26 Dose: 150 mls/hr Documented by: BELLA Pantoprazole Sodium 80 mg/ (Sodium Chloride) 100 mls @ 10 mls/hr IV CONT ASHELY Last Admin: 08/02/19 05:25 Dose: 8 mg/hr, 10 mls/hr Documented by: Infusion: 08/01/19 21:25 Dose: 8 mg/hr, 10 mls/hr Documented by: Infusion: 08/01/19 20:35 Dose: 8 mg/hr, 10 mls/hr Documented by: Infusion: 08/01/19 20:35 Dose: 8 mg/hr, 10 mls/hr Documented by: Admin: 08/01/19 20:31 Dose: 8 mg/hr, 10 mls/hr Documented by: SAJAN Lactated Ringer's (Lactated Ringers) 1,000 mls @ 100 mls/hr IV CONT [facility] Last Admin: 08/01/19 20:32 Dose: Not Given Documented by: ARGELIAORBLATOSHA Pantoprazole Sodium (Protonix) 40 mg IV NOW ONE Stop: 08/01/19 15:57 Last Admin: 08/01/19 16:27 Dose: 40 mg Documented by: BELLA Reevaluation(s) Reevaluation #1: The patient had 475 mL of dark maroon color GIB with clots in bedside commode Time: 18:00 Consultations Consultation #1: Dr. Guerrero consulted for possible admission. Discussed lab findings, physical exam. The patient's H/H is stable with small amount oozing maroon color blood during exam w/o hemorroids appreciated. Stop ASA for next several days, PPI 40 mg BID, and to f/u with Dr. Guerrero at the clinic on and strict return precautions Time: 17:30 Consultation #2: Dr. Guerrero consulted on the phone after the patient had a large GIB bowel movement and she kindly accepted patient's care Time: 18:15 Vital Signs Vital signs: Vital Signs - 8 hr 08/01/19 16:00 08/01/19 16:02 08/01/19 16:30 Temperature 96.9 F L Pulse Rate 85 95 H 84 Respiratory Rate 24 24 24 Blood Pressure 139/91 H Blood Pressure [Right Arm] 117/62 Pulse Oximetry 97 97 96 08/01/19 17:47 08/01/19 18:21 Temperature Pulse Rate 79 89 Respiratory Rate 24 24 Blood Pressure Blood Pressure [Right Arm] 121/70 118/64 Pulse Oximetry 97 96 <Zandra White DO - Last Filed: 08/02/19 07:24> Orders Ordered: Brimonidine Tartrate (Alphagan P 0.2%) 1 drops EYE-BOTH TID [facility] Last Admin: 08/01/19 21:21 Dose: Not Given Documented by: HFORBES Furosemide (Lasix) 80 mg PO DAILY ASHELY Sodium Chloride (Normal Saline 0.9%) 1,000 mls @ 1,000 mls/hr IV BOLUS ONE Stop: 08/02/19 07:56 Oxycodone/Acetaminophen (Percocet 5/325) 1 tab PO Q6H PRN PRN Reason: PAIN Pantoprazole Sodium (Protonix) 40 mg IV BID ASHELY Polyethylene Glycol/Electrolytes (Golytely Solution) 4,000 ml PO NOW ONE Stop: 08/02/19 14:01 Fluticasone/Salmeterol (Advair 100/50 Diskus) 1 puff INH DAILY PRN PRN Reason: difficulty breathing Spironolactone (Aldactone) 50 mg PO MoWeFr@0900 ASHELY Terazosin HCl (Hytrin) 2 mg PO BEDTIME ASHELY Discontinued Medications Sodium Chloride (Normal Saline 0.9%) 1,000 mls @ 150 mls/hr IV CONT [facility] Last Infusion: 08/01/19 20:05 Dose: 0 mls/hr Documented by: [email or web address] Admin: 08/01/19 16:26 Dose: 150 mls/hr Documented by: [email or web address] Pantoprazole Sodium 80 mg/ (Sodium Chloride) 100 mls @ 10 mls/hr IV CONT [facility] Last Admin: 08/02/19 05:25 Dose: 8 mg/hr, 10 mls/hr Documented by: Infusion: 08/01/19 21:25 Dose: 8 mg/hr, 10 mls/hr Documented by: Infusion: 08/01/19 20:35 Dose: 8 mg/hr, 10 mls/hr Documented by: [email or web address] Infusion: 08/01/19 20:35 Dose: 8 mg/hr, 10 mls/hr Documented by: [email or web address] Admin: 08/01/19 20:31 Dose: 8 mg/hr, 10 mls/hr Documented by: ARGELIAORBES Lactated Ringer's (Lactated Ringers) 1,000 mls @ 100 mls/hr IV CONT [facility] Last Admin: 08/01/19 20:32 Dose: Not Given Documented by: HFORBES Pantoprazole Sodium (Protonix) 40 mg IV NOW ONE Stop: 08/01/19 15:57 Last Admin: 08/01/19 16:27 Dose: 40 mg Documented by: [email or web address] Vital Signs Vital signs: Vital Signs - 8 hr 08/01/19 16:00 08/01/19 16:02 08/01/19 16:30 Temperature 96.9 F L Pulse Rate 85 95 H 84 Respiratory Rate 24 24 24 Blood Pressure 139/91 H Blood Pressure [Right Arm] 117/62 Pulse Oximetry 97 97 96 08/01/19 17:47 08/01/19 18:21 Temperature Pulse Rate 79 89 Respiratory Rate 24 24 Blood Pressure Blood Pressure [Right Arm] 121/70 118/64 Pulse Oximetry 97 96 MDM - GI Bleed <CARLY Soliz - Last Filed: 08/02/19 00:43> Differential Diagnosis Differential diagnosis: Likely hemorrhoids, gastritis, Upper gastrointestinal hemorrhage, Lower gastrointestinal hemorrhage and melena Medical Records Attestation: I reviewed the patient's medical records. Lab Data Attestation: I reviewed the patient's lab results. Result diagrams: 08/02/19 05:18 08/02/19 05:18 Labs: Lab Results 08/01/19 08/01/19 08/01/19 Range/Units 15:50 15:50 15:50 WBC 5.0 (4.5-11.0) X10^3/uL RBC 3.99 L (4.5-5.9) X10^6/uL Hgb 11.9 L (13.5-17.5) g/dL Hct 35.6 L (41-53) % MCV 89.1 (80-100) fL MCH 29.7 (26-34) PG MCHC 33.4 (30-36) % RDW 14.9 H (11.6-14.8) % Plt Count 249 (150-400) X10^3/uL Neut % (Auto) 78.8 H (50-75) % Lymph % (Auto) 8.9 L (25-40) % [place] % (Auto) 9.4 (3-14) % Eos % (Auto) 2.2 (2-4) % Baso % (Auto) 0.7 (0-2) % Neut # (Auto) 4000 (0065-8023) /uL Lymph # (Auto) 400 L (6562-8957) /uL [place] # (Auto) 500 (0-900) /uL Eos # (Auto) 100 (0-450) /uL Baso # (Auto) 0 (0-100) /uL PT 13.1 H (10.1-12.7) SECONDS INR 1.1 (0.9-1.3) APTT 34 (26.4-36.2) SECONDS Sodium 137 (137-145) mmol/L Potassium 4.1 (3.4-5.1) mmol/L Chloride 96 L (98-107) mmol/L Carbon Dioxide 35 H (22-32) mmol/L BUN 36 H (9-20) mg/dL Creatinine 1.17 (0.66-1.25) mg/dL Estimated GFR 59.8 L (>60) mL/min BUN/Creatinine Ratio 30.8 H (6-22) Glucose 158 H (80-110) mg/dL Calcium 9.0 (8.4-10.2) mg/dL Total Bilirubin 0.4 (0.2-1.3) mg/dL AST 38 (17-59) IU/L ALT 13 (<50) IU/L Alkaline Phosphatase 82 (38-126) U/L NT-Pro-B Natriuret Pep 878 H (<450) pg/mL Total Protein 7.6 (6.3-8.2) g/dL Albumin 3.9 (3.5-5.0) g/dL Globulin 3.7 (1.7-4.1) g/dL Albumin/Globulin Ratio 1.1 (1.0-2.8) Lipase 83 (23-300) U/L Blood Type Antibody Screen 08/01/19 Range/Units 15:50 WBC (4.5-11.0) X10^3/uL RBC (4.5-5.9) X10^6/uL Hgb (13.5-17.5) g/dL Hct (41-53) % MCV (80-100) fL MCH (26-34) PG MCHC (30-36) % RDW (11.6-14.8) % Plt Count (150-400) X10^3/uL Neut % (Auto) (50-75) % Lymph % (Auto) (25-40) % [place] % (Auto) (3-14) % Eos % (Auto) (2-4) % Baso % (Auto) (0-2) % Neut # (Auto) (1519-9389) /uL Lymph # (Auto) (1733-2284) /uL [place] # (Auto) (0-900) /uL Eos # (Auto) (0-450) /uL Baso # (Auto) (0-100) /uL PT (10.1-12.7) SECONDS INR (0.9-1.3) APTT (26.4-36.2) SECONDS Sodium (137-145) mmol/L Potassium (3.4-5.1) mmol/L Chloride (98-107) mmol/L Carbon Dioxide (22-32) mmol/L BUN (9-20) mg/dL Creatinine (0.66-1.25) mg/dL Estimated GFR (>60) mL/min BUN/Creatinine Ratio (6-22) Glucose (80-110) mg/dL Calcium (8.4-10.2) mg/dL Total Bilirubin (0.2-1.3) mg/dL AST (17-59) IU/L ALT (<50) IU/L Alkaline Phosphatase (38-126) U/L NT-Pro-B Natriuret Pep (<450) pg/mL Total Protein (6.3-8.2) g/dL Albumin (3.5-5.0) g/dL Globulin (1.7-4.1) g/dL Albumin/Globulin Ratio (1.0-2.8) Lipase (23-300) U/L Blood Type A Positive Antibody Screen Negative [facility] Narrative Medical decision making narrative: This is a 79-year-old gentleman who presents to ED with GI bleeding which started 2:00 p.m.. Patient denies chest pain or dizziness. No changes in short of breath from his baseline. Abdomen is soft, nontender to palpate and nondistended. Patient takes aspirin full dose daily after a blood clot in right eye. Patient states he had history of GI bleed about 10-15 years ago and had colonoscopy and found polyps about 5 years ago. Patient's heart rates in 80s to 90s upon arrival with normotensive. Today's H&H is 11.9/35.6 which is slightly above his normal baseline. There is no leukocytosis. PT is 13.1 slightly above normal range. Increased BUN 36. Normal creatinine level of 1.17 with GFR of 59.8 and increased BUN/creatinine ratio of 30.8. Serum glucose was slightly elevated to 158. Normal liver function test today. Patient currently takes Lasix and reports short of breath which is not too different from his baseline and pro BNP was obtained and shows 878 and slightly elevated. Calcium within normal range. Rectal exam does not appreciated external or internal hemorrhoids and noted small amount of maroon color GI bleed in perineum region. Patient was medicated with pantoprazole IV 40 mg and gentle IV hydration at 125 mL/hour. Dr. Guerrero was consulted on the phone and it was recommended if no further severe GI bleed is noted with patient's baseline H&H and patient wishes to be discharged to home. Patient was reassessed and noted small amount GI bleed in rectum. However, patient had large amount of maroon-colored GI bleed of 475 mL in bedside commode after the discussion. Dr. Guerrero contacted again to inform the above and she kindly accepted patient's care for continuation of care. Pantoprazole drip and repeat H&H with slight decreased result of 11.2/34. Second IV line is being established. Type and screen has been done. Patient informed of pending admission for further evaluation with scope. <Zandra White, DO - Last Filed: 08/02/19 07:24> Lab Data Labs: Lab Results 08/01/19 08/01/19 08/01/19 Range/Units 15:50 15:50 15:50 WBC 5.0 (4.5-11.0) X10^3/uL RBC 3.99 L (4.5-5.9) X10^6/uL Hgb 11.9 L (13.5-17.5) g/dL Hct 35.6 L (41-53) % MCV 89.1 (80-100) fL MCH 29.7 (26-34) PG MCHC 33.4 (30-36) % RDW 14.9 H (11.6-14.8) % Plt Count 249 (150-400) X10^3/uL Neut % (Auto) 78.8 H (50-75) % Lymph % (Auto) 8.9 L (25-40) % [place] % (Auto) 9.4 (3-14) % Eos % (Auto) 2.2 (2-4) % Baso % (Auto) 0.7 (0-2) % Neut # (Auto) 4000 (2287-8599) /uL Lymph # (Auto) 400 L (4135-0360) /uL [place] # (Auto) 500 (0-900) /uL Eos # (Auto) 100 (0-450) /uL Baso # (Auto) 0 (0-100) /uL PT 13.1 H (10.1-12.7) SECONDS INR 1.1 (0.9-1.3) APTT 34 (26.4-36.2) SECONDS Sodium 137 (137-145) mmol/L Potassium 4.1 (3.4-5.1) mmol/L Chloride 96 L (98-107) mmol/L Carbon Dioxide 35 H (22-32) mmol/L BUN 36 H (9-20) mg/dL Creatinine 1.17 (0.66-1.25) mg/dL Estimated GFR 59.8 L (>60) mL/min BUN/Creatinine Ratio 30.8 H (6-22) Glucose 158 H (80-110) mg/dL Calcium 9.0 (8.4-10.2) mg/dL Total Bilirubin 0.4 (0.2-1.3) mg/dL AST 38 (17-59) IU/L ALT 13 (<50) IU/L Alkaline Phosphatase 82 (38-126) U/L NT-Pro-B Natriuret Pep 878 H (<450) pg/mL Total Protein 7.6 (6.3-8.2) g/dL Albumin 3.9 (3.5-5.0) g/dL Globulin 3.7 (1.7-4.1) g/dL Albumin/Globulin Ratio 1.1 (1.0-2.8) Lipase 83 (23-300) U/L Blood Type Antibody Screen 08/01/19 Range/Units 15:50 WBC (4.5-11.0) X10^3/uL RBC (4.5-5.9) X10^6/uL Hgb (13.5-17.5) g/dL Hct (41-53) % MCV (80-100) fL MCH (26-34) PG MCHC (30-36) % RDW (11.6-14.8) % Plt Count (150-400) X10^3/uL Neut % (Auto) (50-75) % Lymph % (Auto) (25-40) % [place] % (Auto) (3-14) % Eos % (Auto) (2-4) % Baso % (Auto) (0-2) % Neut # (Auto) (4548-8386) /uL Lymph # (Auto) (6489-8410) /uL [place] # (Auto) (0-900) /uL Eos # (Auto) (0-450) /uL Baso # (Auto) (0-100) /uL PT (10.1-12.7) SECONDS INR (0.9-1.3) APTT (26.4-36.2) SECONDS Sodium (137-145) mmol/L Potassium (3.4-5.1) mmol/L Chloride (98-107) mmol/L Carbon Dioxide (22-32) mmol/L BUN (9-20) mg/dL Creatinine (0.66-1.25) mg/dL Estimated GFR (>60) mL/min BUN/Creatinine Ratio (6-22) Glucose (80-110) mg/dL Calcium (8.4-10.2) mg/dL Total Bilirubin (0.2-1.3) mg/dL AST (17-59) IU/L ALT (<50) IU/L Alkaline Phosphatase (38-126) U/L NT-Pro-B Natriuret Pep (<450) pg/mL Total Protein (6.3-8.2) g/dL Albumin (3.5-5.0) g/dL Globulin (1.7-4.1) g/dL Albumin/Globulin Ratio (1.0-2.8) Lipase (23-300) U/L Blood Type A Positive Antibody Screen Negative Discharge Plan Departure Patient Disposition: Admitted as Observation Clinical Impression: GI bleed Qualifiers: GI bleed type/associated pathology: unspecified gastrointestinal hemorrhage type Qualified Code(s): K92.2 - Gastrointestinal hemorrhage, unspecified Discharge Date/Time: 08/01/19 20:05 Admit Date/Time: 08/01/19 18:35 Admit Provider: Abimbola Guerrero
[2019-08-01 16:04] LABS: INR 1.1 (0.9-1.3); Prothrombin Time 13.1 SECONDS (10.1-12.7)
[2019-08-01 16:05] LABS: Add Manual Diff / Slide Review NO; Basophils Absolute Auto 0 /uL (0-100); Basophils Percent Auto 0.7 % (0-2); Eosinophils Absolute Auto 100 /uL (0-450); Eosinophils Percent Auto 2.2 % (2-4); Hematocrit 35.6 % (41-53); Hemoglobin 11.9 g/dL (13.5-17.5); Lymphocytes Absolute Auto 400 /uL (1100-4500); Lymphocytes Percent Auto 8.9 % (25-40); Mean Corpuscular HGB Conc 33.4 % (30-36); Mean Corpuscular Hemoglobin 29.7 PG (26-34); Mean Corpuscular Volume 89.1 fL (80-100); Monocytes Absolute Auto 500 /uL (0-900); Monocytes Percent Auto 9.4 % (3-14); Neutrophils Absolute Auto 4000 /uL (1500-7000); Neutrophils Percent Auto 78.8 % (50-75); Platelet Count 249 X10^3/uL (150-400); Red Blood Cell Count 3.99 X10^6/uL (4.5-5.9); Red Cell Distribution Width 14.9 % (11.6-14.8)
[2019-08-01 16:07] LABS: PTT Partial Thromboplastin Tim 34 SECONDS (26.4-36.2)
[2019-08-01 16:09] LABS: Alanine Aminotransferase 13 IU/L (<50); Albumin 3.9 g/dL (3.5-5.0); Albumin Globulin Ratio 1.1 (1.0-2.8); Alkaline Phosphatase 82 U/L (38-126); Aspartate Aminotransferase 38 IU/L (17-59); BUN Creatinine Ratio 30.8 (6-22); Bilirubin Total 0.4 mg/dL (0.2-1.3); Blood Urea Nitrogen 36 mg/dL (9-20); Carbon Dioxide 35 mmol/L (22-32); Chloride 96 mmol/L (98-107); Estimated Glomerular Filt Rate 59.8 mL/min (>60); Globulin 3.7 g/dL (1.7-4.1); Glucose 158 mg/dL (80-110); HEMOLYSIS 37 (0-50); Lipase 83 U/L (23-300); Potassium 4.1 mmol/L (3.4-5.1); Sodium 137 mmol/L (137-145); Total Protein 7.6 g/dL (6.3-8.2)
[2019-08-01 16:18] LABS: NT-proBNP (BNP-Adult 18+) 878 pg/mL (<450)
[2019-08-01] MEDS: SODIUM CHLORIDE 0.9% 1,000 ML 150 ML IV (16:26)
[2019-08-01] MEDS: PANTOPRAZOLE 40 MG VIAL IV (16:27)
--- NOTE | 2019-08-01 17:46 | PC.NURSE ---
Up to Bedside commode, tolerated activity well. Denies dizziness,lightheadedness.AOX4.Skin PWD.
--- NOTE | 2019-08-01 19:19 | PC.NURSE ---
2nd IV line started right forearm #[id number]
--- NOTE | 2019-08-01 19:19 | PC.NURSE ---
2nd IV line inserted right forearm, blood drawn for repeat H & H, sent to lab.
--- NOTE | 2019-08-01 19:23 | P.HP_ITS ---
History of Present Illness History of Present Illness Date Patient Seen: 08/01/19 Time Patient Seen: 19:23 Chief complaint: passing blood Narrative: This is an 79yo man with h/o asbestosis, pulmonary effusion, complete heart block status post AICD/pacer placement, hypertension, hyperlipidemia, prostate cancer status post prostatectomy, history of colon polyps who presented to the ER for GI bleeding which began today around 2PM. He felt some rumbling in his abdomen and when he went to the toilet he saw bright and dark blood with clots present. He denies a recent history of melena. He watches his stool because he had some melena in the past and was found to have colon polyps. He reports that he takes 325mg ASA three times daily for a history of optic stroke. He believes his pacer is a pacer only and not an AICD, although notes from a past admission refer to it as an AICD. He says his heart block caused his heart rate to go into the 30's and he is dependent on the pacing. ROS: He denies recent sick contacts and denies fevers or chills, denies nasal congestion or sore throat. He denies chest pain, SOB or cough. He does have chronic back pain. He denies abdominal pain or rectal pain. He has a rounded abdomen that he states is no more distended than usual. He denies nausea/vomiting, denies post prandial pain or any epigastric pain. He believes his last colonoscopy was about five years ago, and only polyps were found on prior scopes. He had an EGD at some point, but was negative. Denies dysuria. Denies lightheadedness. Thirteen system review is otherwise negative other than as mentioned below and in HPI. PMH: History of retinal hemorrhage Asbestos pleurisy Complete heart block HLD (hyperlipidemia) HTN (hypertension) Prostate CA PSH: History of shoulder surgery History of total bilateral knee replacement AICD (automatic cardioverter/defibrillator per chart notes) present H/O prostatectomy FMH: no family history of colon polyps or colon cancers Social History: Smoking: Patient is a past smoker having quit 1990. Alcohol: Patient endorses past moderate alcohol intake having quit many years ago. Substance use: The patient denies recreation pharmaceuticals, herbal or cannabis products. Home meds: multivitamin 1 tab PO DAILY #0 04/13/11 09/19/18 History fluticasone propion-salmeterol 1 puff INHALATION PRN #0 01/17/12 09/19/18 History [Advair Diskus] clobetasol 1 applic TOPICAL DIRECTED 08/14/17 09/19/18 History furosemide 80 mg PO DAILY 08/14/17 09/19/18 History promethazine-codeine 5 ml PO PRN PRN 08/14/17 09/19/18 History spironolactone 50mg PO MWF 08/14/17 09/19/18 History aspirin 325 mg PO TID 03/25/18 09/19/18 History terazosin 2 mg PO DAILY 03/25/18 09/19/18 History Allergies No Known Drug Allergies PE: GENERAL: Alert, comfortable. Appears stated age. Answers questions promptly and appropriately. Vital signs noted. HENT: Normocephalic, atraumatic. Hearing intact. Oral mucosa is pink and moist. Poor dentition; hard of hearing. EYES: Conjunctiva pink, sclera white, no periorbital swelling. CARDIOVASCULAR: Regular rate and rhythm. Trace pedal edema. RESPIRATORY: Non-tachypneic, breathing comfortably on room air. GASTROINTESTINAL: Abdomen soft, rounded, nontender TIMMY: no tenderness; normal tone; gross blood present but not pooring out Perineum: dried perianal blood staining; no large external hemorrhoids GENITALURINARY: No flank tenderness. MUSCULOSKELETAL: Equal tone and mass bilaterally. SKIN: Warm, dry, soft, appropriate color for ethnicity. No other lesions, rashes, or wounds. NEURO: Alert and Oriented X 3. No gross sensory deficits, or cognitive issues. PSYCH: Appropriate affect and mood. Patient History Medical History Asbestos pleurisy (Acute) Colon polyps (Acute) Complete heart block (Acute) GI bleed (Acute) History of retinal hemorrhage (Acute) HLD (hyperlipidemia) (Acute) HTN (hypertension) (Acute) Prostate CA (Acute) Surgical History AICD (automatic cardioverter/defibrillator) present (Acute) H/O prostatectomy (Acute) History of shoulder surgery (Acute) History of total bilateral knee replacement (Acute) Family & Social History Social History: household members spouse,children Safety & Behavioral: Feels Safe in Current Yes Environment Been Physically Hurt or No Threatened By a Person Tobacco & Substance use: Smoking Status Never smoker alcohol intake former alcohol intake frequency 0-2 drinks per day Substance Use Type does not use Meds Home Medications and Allergies Home Medications Medication Instructions Recorded Confirmed Type multivitamin 1 tab PO DAILY #0 04/13/11 09/19/18 History fluticasone propion-salmeterol 1 puff INHALATION PRN #0 01/17/12 09/19/18 History [Advair Diskus] clobetasol 1 applic TOPICAL DIRECTED 08/14/17 09/19/18 History furosemide 80 mg PO DAILY 08/14/17 03/25/19 History promethazine-codeine 5 ml PO PRN PRN 08/14/17 03/25/19 History spironolactone 50 mg PO MOWEFR 08/14/17 03/25/19 History aspirin 325 mg PO TID 03/25/18 09/19/18 History terazosin 2 mg PO DAILY 03/25/18 09/19/18 History prednisone 40 mg PO DAILY #7 tab 09/21/18 Rx brimonidine 1 drp OPHTHALMIC (EYE) TID 03/25/19 03/25/19 History oxycodone-acetaminophen 1 tab PO Q6H PRN 03/25/19 03/25/19 History Allergies Allergy/AdvReac Type Severity Reaction Status Date / Time No Known Drug Allergies Allergy Verified 08/01/19 16:02 Exam Vital Signs (past 8 hours): - 08/01/19 16:00 08/01/19 16:02 08/01/19 16:30 Temperature 96.9 F L Pulse Rate 85 95 H 84 Respiratory Rate 24 24 24 Blood Pressure 139/91 H Blood Pressure [Right Arm] 117/62 Pulse Oximetry 97 97 96 08/01/19 17:47 08/01/19 18:21 Temperature Pulse Rate 79 89 Respiratory Rate 24 24 Blood Pressure Blood Pressure [Right Arm] 121/70 118/64 Pulse Oximetry 97 96 Oxygen Delivery Method Room Air Objective Labs Result Diagrams: 08/01/19 18:50 08/01/19 15:50 Labs: Laboratory Results - last 24 hr 08/01/19 08/01/19 08/01/19 15:50 15:50 15:50 WBC 5.0 RBC 3.99 L Hgb 11.9 L Hct 35.6 L MCV 89.1 MCH 29.7 MCHC 33.4 RDW 14.9 H Plt Count 249 Neut % (Auto) 78.8 H Lymph % (Auto) 8.9 L [place] % (Auto) 9.4 Eos % (Auto) 2.2 Baso % (Auto) 0.7 Neut # (Auto) 4000 Lymph # (Auto) 400 L [place] # (Auto) 500 Eos # (Auto) 100 Baso # (Auto) 0 PT 13.1 H INR 1.1 APTT 34 Sodium 137 Potassium 4.1 Chloride 96 L Carbon Dioxide 35 H BUN 36 H Creatinine 1.17 Estimated GFR 59.8 L BUN/Creatinine Ratio 30.8 H Glucose 158 H Calcium 9.0 Total Bilirubin 0.4 AST 38 ALT 13 Alkaline Phosphatase 82 NT-Pro-B Natriuret Pep 878 H Total Protein 7.6 Albumin 3.9 Globulin 3.7 Albumin/Globulin Ratio 1.1 Lipase 83 Blood Type Antibody Screen 08/01/19 15:50 WBC RBC Hgb Hct MCV MCH MCHC RDW Plt Count Neut % (Auto) Lymph % (Auto) [place] % (Auto) Eos % (Auto) Baso % (Auto) Neut # (Auto) Lymph # (Auto) [place] # (Auto) Eos # (Auto) Baso # (Auto) PT INR APTT Sodium Potassium Chloride Carbon Dioxide BUN Creatinine Estimated GFR BUN/Creatinine Ratio Glucose Calcium Total Bilirubin AST ALT Alkaline Phosphatase NT-Pro-B Natriuret Pep Total Protein Albumin Globulin Albumin/Globulin Ratio Lipase Blood Type A Positive Antibody Screen Negative Assessment & Plan Assessment and plan (1) H/O prostatectomy: Problem details: CRYO Current visit: No Status: Acute (2) AICD (automatic cardioverter/defibrillator) present: Current visit: No Status: Acute (3) Colon polyps: Current visit: Yes Status: Acute (4) Asbestos pleurisy: Current visit: No Status: Acute (5) GI bleed: Current visit: Yes Status: Acute (6) Complete heart block: Current visit: No Status: Acute Assessment & Plan narrative: This is an 79 yo man with history of third degree heart block which is pacer dependent, history of GI bleed which has always been lower GI source per the patient, history of optic stroke now on 325mg TID ASA, who presented to the ER with copious red blood per rectum and clots since about 2PM. His Hgb was 11.9 on check in the ER, which is higher than his prior his tory. He feels his bleeding has slowed down, but he passed another 500mL of blood and clots in the ER this evening, resulting in recommendation for admission. 90 minutes were spent in record review and face to face time with the patient. More than 50% of the time was spent in counseling and co-ordination of care regarding medical and surgical history, GI bleeding symptoms, EGD and colonoscopy history, possible need for repeat scope on this admission vs. observation and plan for scope at a future date. Plan: Hold ASA NPO except for water and ice chips hold DVT ppx ambulate as tolerated repeat CBC now and at midnight transfuse for Hgb <8 or symptomatic PPI 40mg IV BID home meds as appropriate hospitalist to follow for complex medical comorbidities COVID 19 test for pre-procedure clearance plan for EGD/colonoscopy on Sunday Time Spent With Patient Time with patient: Greater than 35 minutes Quality VTE Deep Vein Thrombosis/Pulmonary Embolism Present on Admission: No
[2019-08-01 19:27] LABS: Hemoglobin 11.2 g/dL (13.5-17.5)
[2019-08-01] MEDS: PANTOPRAZOLE 80 MG in SODIUM CHLORIDE 0.9% 100 ML 10 ML IV (20:31)
--- NOTE | 2019-08-01 23:19 | PC.NURSE ---
VSS, no s/sx bleeding, afebrile, denies SOA. patient remains on room Air, report to noc. RJ.
--- NOTE | 2019-08-01 23:22 | P.CONS_ITS ---
History of Present Illness Consult details Date Patient Seen: 08/01/19 Time Patient Seen: 22:38 Chief complaint: passing blood Reason for consult: GI Bleed with history of cardiac disease and heart failure. Requesting provider: Abimbola Guerrero Narrative: Mr. Jonas Estrada is an 78-year-old male patient with a history of asbestosis, pulmonary effusions, complete heart block status post AV sequential pacemaker placement (patient states his pacemaker is noted defibrillator), hypertension, hyperlipidemia and prostate cancer status post prostatectomy who presents to the hospital for rectal bleeding. The patient states he was working on his back hoe 1 he felt something wet. He states he went into the house and proceeded to pass bloody stool with clots. He states he took a shower to clean himself up however the bleeding continued and he began to feel lightheaded at which time decided to present to the ER for evaluation. The patient has history of GI bleed about 10-15 years ago and has been diagnosed previously with colon polyps. The patient takes aspirin daily reportedly for a retinal bleed. The patient denies headaches or new visual changes, no nasal congestion or sore throat. Reports no complaints of chest pain or palpitations. He denies shortness of breath, cough or wheezing. He has had no abdominal pain but has been having crampy discomfort. He denies nausea vomiting. Prior to today he has been having regular bowel movements and does have a history of hemorrhoids reporting occasional bright red blood on toilet tissue. The patient is independent all ADLs. On upon arrival to the ER the patient has a temperature of 96.9?, heart rate 95, blood pressure 139/91, respirations 24 saturating 97% on room air. Chest x-rays taken which shows bilateral pulmonary opacities unchanged from imaging in 2019, pulmonary scarring, biventricular pacemaker. Twelve lead EKG is obtained which demonstrates sinus rhythm with a ventricular rate of 86 and 100s% ventricular pacing. On laboratory analysis the patient has white count of 5.0, hemoglobin of 11.2, hematocrit of 34.0 and platelets 249. He has a PT of 13.1 and INR of 1.1 and PTT of 34. His electrolytes are within normal range and has a BUN of 36 and a creatinine of 1.17. His nonfasting glucose is 158. Has a total bilirubin of 0.4, AST of 38, ALT of 13 and alkaline phosphatase of 82. His lipase is 83. ProBNP is 878. COVID-19 screening is sent. The patient is admitted to Dr. Guerrero who has requested medicine to consult related to the patient's cardiac history. Meds Home Medications and Allergies Home Medications Medication Instructions Recorded Confirmed Type multivitamin 1 tab PO DAILY #0 04/13/11 08/02/19 History fluticasone propion-salmeterol 1 puff INHALATION PRN #0 01/17/12 08/02/19 History [Advair Diskus] clobetasol 1 applic TOPICAL DIRECTED 08/14/17 09/19/18 History furosemide 80 mg PO DAILY 08/14/17 08/02/19 History promethazine-codeine 5 ml PO PRN PRN 08/14/17 03/25/19 History spironolactone 50 mg PO MOWEFR 08/14/17 08/02/19 History aspirin 325 mg PO TID 03/25/18 08/02/19 History terazosin 2 mg PO DAILY 03/25/18 08/02/19 History brimonidine 1 drp OPHTHALMIC (EYE) TID 03/25/19 03/25/19 History oxycodone-acetaminophen 1 tab PO Q6H PRN 03/25/19 08/02/19 History Allergies Allergy/AdvReac Type Severity Reaction Status Date / Time No Known Drug Allergies Allergy Verified 08/01/19 16:02 Review of Systems Review of Systems ROS: Yes All systems reviewed with the patient and are negative except as otherwise documented Exam Vital Signs (past 8 hours): - 08/01/19 16:00 08/01/19 16:02 08/01/19 16:30 Temperature 96.9 F L Pulse Rate 85 95 H 84 Respiratory Rate 24 24 24 Blood Pressure 139/91 H Blood Pressure [Right Arm] 117/62 Pulse Oximetry 97 97 96 08/01/19 17:47 08/01/19 18:21 08/01/19 19:10 Temperature Pulse Rate 79 89 81 Respiratory Rate 24 24 20 Blood Pressure Blood Pressure [Right Arm] 121/70 118/64 102/62 Pulse Oximetry 97 96 96 08/01/19 20:05 08/01/19 20:40 08/01/19 20:52 Temperature 97.8 F 97.8 F 97.8 F Pulse Rate 88 83 88 Respiratory Rate 20 18 20 Blood Pressure 122/69 115/65 Blood Pressure [Right Arm] 115/65 Pulse Oximetry 97 95 97 08/01/19 21:43 Temperature Pulse Rate Respiratory Rate Blood Pressure 108/75 Blood Pressure [Right Arm] Pulse Oximetry Oxygen Delivery Method Room Air Narrative Exam Narrative: GENERAL APPEARANCE: well developed, well nourished elderly male, in no acute distress. HEENT: Normocephalic, hand motion at 2 ft OS, pupils equal, round, reactive to light, sclera non-icteric, extraocular movement intact without nystagmus, sinuses non tender to percussion, no rhinorrhea, mucosa moist without lesions or exudate, dentition in poor repair. NECK/THYROID: neck supple, no jugular venous distention, no carotid bruit, no thyromegaly, trachea midline. LYMPH NODES: no cervical or supraclavicular lymphadenopathy. SKIN: warm dry and pink without visible rashes HEART: Regular rhythm with pauses, 3/6 holosystolic murmur, no rubs or gallops, brisk capillary refill, 1+ bilateral lower extremity pitting edema to the knee. LUNGS: clear to auscultation bilaterally, no coarseness crackles or wheezing, no cough present. CHEST: Symmetrical movement no accessory muscle use, good tidal volume. ABDOMEN: Soft, round, tympanic to percussion,no abdominal tenderness, no guarding or peritoneal signs, no organomegaly, no flank or suprapubic tenderness, active bowel tones. EXTREMITIES: moves all extremities, strength is 5/5 and symmetrical, professor of violin equal and strong bilaterally NEUROLOGIC: AAO x4, cranial nerves II-XII grossly intact , motor strength normal upper and lower extremities, sensory exam intact to light touch, hearing grossly normal to speech. PSYCH: alert, cooperative, good eye contact, labile behavior with episode of agitation. Objective Labs Result Diagrams: 08/01/19 18:50 08/01/19 15:50 Labs: Laboratory Results - last 24 hr 08/01/19 08/01/19 08/01/19 15:50 15:50 15:50 WBC 5.0 RBC 3.99 L Hgb 11.9 L Hct 35.6 L MCV 89.1 MCH 29.7 MCHC 33.4 RDW 14.9 H Plt Count 249 Neut % (Auto) 78.8 H Lymph % (Auto) 8.9 L [place] % (Auto) 9.4 Eos % (Auto) 2.2 Baso % (Auto) 0.7 Neut # (Auto) 4000 Lymph # (Auto) 400 L [place] # (Auto) 500 Eos # (Auto) 100 Baso # (Auto) 0 PT 13.1 H INR 1.1 APTT 34 Sodium 137 Potassium 4.1 Chloride 96 L Carbon Dioxide 35 H BUN 36 H Creatinine 1.17 Estimated GFR 59.8 L BUN/Creatinine Ratio 30.8 H Glucose 158 H Calcium 9.0 Total Bilirubin 0.4 AST 38 ALT 13 Alkaline Phosphatase 82 NT-Pro-B Natriuret Pep 878 H Total Protein 7.6 Albumin 3.9 Globulin 3.7 Albumin/Globulin Ratio 1.1 Lipase 83 Blood Type Antibody Screen 08/01/19 08/01/19 15:50 18:50 WBC RBC Hgb 11.2 L Hct 34.0 L MCV MCH MCHC RDW Plt Count Neut % (Auto) Lymph % (Auto) [place] % (Auto) Eos % (Auto) Baso % (Auto) Neut # (Auto) Lymph # (Auto) [place] # (Auto) Eos # (Auto) Baso # (Auto) PT INR APTT Sodium Potassium Chloride Carbon Dioxide BUN Creatinine Estimated GFR BUN/Creatinine Ratio Glucose Calcium Total Bilirubin AST ALT Alkaline Phosphatase NT-Pro-B Natriuret Pep Total Protein Albumin Globulin Albumin/Globulin Ratio Lipase Blood Type A Positive Antibody Screen Negative Assessment & Plan Assessment & Plan narrative: This is an 79-year-old male patient with a history of asbestosis prostate cancer hypertension hyperlipidemia and complete heart block, heart failure with preserved EF and GI bleeding that brings him in today. Patient has a history of lower GI bleeds and has a history of colon polyps. Bleeding began approximately 2:00 a.m. today with multiple episodes of passing bloody stool and clots. Patient last past blood while in the ER estimated at 500 cc. 1. Lower GI bleed, acute, present on admission, active. -patient with acute onset of rectal bleeding today with bright red and dark red blood with clots. Last bloody stool was in the ER. -patient has prior history of colon polyps and lower GI bleeding with his labs episode 10-15 years ago. Last colonoscopy is reported 5 years ago. 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 The patient previously been taking Protonix 40 mg twice daily. -patient with hemoglobin of 11.2 with hemoglobin for able between 10.7 and 11.9 over the last year. Platelets are adequate at 249 without coagulopathy. -Dr. Guerrero has admitted the patient with plans to observe overnight and monitor H&H with tentative plan for scope tomorrow. -preoperative COVID-19 screening initiated. 2. Chronic congestive heart failure with preserved ejection fraction, present on admission. -no complaints of chest pain or shortness of breath cough or wheezing. -patient also has history of congestive heart failure with preserved EF last documented on echo cardiogram 09/20/2018 with finding of normal LV function, EF of 70 75, moderate left ventricular thickening with normal function, right ventricle mild to moderately dilated, PA pressure estimated at 51, severely dilated left atrium and moderate dilation right atrium. -continue daily Lasix 80 mg and spironolactone 50 mg 3 times a week. Presently 1+ edema bilateral lower extremities. 3. Complete heart block, status post pacemaker implantation, present on admission, stable. -patient without chest pain or shortness of breath. -pacemaker implanted for history of complete heart block. -per medical record the patient has an AICD implanted. Twelve lead EKG reveals sinus rhythm with 100% ventricular pacing. -chest x-ray reveals right anterior chest permanent pacemaker with biventricular leads. 4. Chronic asbestosis, presumed stable. -patient has history of asbestosis and prior left pleural effusion having undergone thoracentesis in May 2018. -chest x-ray on admission identifies bilateral pulmonary opacities unchanged from 2019 with pulmonary scarring. -will continue patient's Advair Diskus inhaler once daily as needed. 5. Chronic Hypertension, active -the patient is taking furosemide 80 mg daily, and spironolactone 50 mg 3 times weekly. -the patient is mildly hypertensive at 139/91 upon arrival down to 127/66 after admission to the floor. -will continue diuretic therapy and monitor blood pressure. 6. History of hyperlipidemia, presumed stable. -patient is not currently on cholesterol lowering medication. -will defer follow-up to primary care provider. 7. Prostate cancer, stable. -status post prostatectomy, patient with variable urinary pattern. -no evidence of recurrence. This is an 79-year-old male who presents with a recurrence of acute GI bleeding. The patient states bleeds the bleeding is slowing and has not had a bloody stool since admission. The patient denies abdominal pain or cramping. His comorbid conditions of heart failure asbestosis and arrhythmia appears stable and uncomplicated by the current episode. Thank you for allowing us to par ticipate in the care of this gentleman and we will continue to follow with the patient.
[2019-08-02 05:13] VITALS: BP 130/58; PULSE 85; RESP 16; TEMP 36.9; O2SAT 94
[2019-08-02] MEDS: PANTOPRAZOLE 80 MG in SODIUM CHLORIDE 0.9% 100 ML 10 ML IV (05:25)
[2019-08-02 05:38] LABS: Add Manual Diff / Slide Review NO; Basophils Absolute Auto 0 /uL (0-100); Basophils Percent Auto 0.7 % (0-2); Eosinophils Absolute Auto 100 /uL (0-450); Eosinophils Percent Auto 2.4 % (2-4); Hematocrit 29.1 % (41-53); Hemoglobin 9.6 g/dL (13.5-17.5); Lymphocytes Absolute Auto 500 /uL (1100-4500); Lymphocytes Percent Auto 10.3 % (25-40); Mean Corpuscular Hemoglobin 29.5 PG (26-34); Mean Corpuscular Volume 89.2 fL (80-100); Monocytes Absolute Auto 400 /uL (0-900); Monocytes Percent Auto 9.7 % (3-14); Neutrophils Absolute Auto 3400 /uL (1500-7000); Neutrophils Percent Auto 76.9 % (50-75); Platelet Count 216 X10^3/uL (150-400); Red Blood Cell Count 3.27 X10^6/uL (4.5-5.9); Red Cell Distribution Width 14.7 % (11.6-14.8); White Blood Cell Count 4.5 X10^3/uL (4.5-11.0)
[2019-08-02 05:42] LABS: Blood Urea Nitrogen 33 mg/dL (9-20); Calcium 8.7 mg/dL (8.4-10.2); Carbon Dioxide 30 mmol/L (22-32); Chloride 103 mmol/L (98-107); Estimated Glomerular Filt Rate > 60.0 mL/min (>60); Glucose 94 mg/dL (80-110); HEMOLYSIS 16 (0-50); Magnesium 2.2 mg/dL (1.6-2.3); Potassium 3.9 mmol/L (3.4-5.1); Sodium 139 mmol/L (137-145)
--- NOTE | 2019-08-02 07:51 | PM.PN.1 ---
Subjective Subjective Date Patient Seen: 08/02/19 Time Patient Seen: 08:52 Interval history: Seen today to follow-up GI bleeding and cardiac status. He has quite a personality type that is not suppressed by this illness. He denies any further GI bleeding since the emergency department admission last night. The hemoglobin has dropped from 11.2-9.6. He is not short breath and does not have chest pain. Exam Vital Signs (past 8 hours): - 08/02/19 05:13 Temperature 98.4 F Pulse Rate 85 Respiratory Rate 16 Blood Pressure 130/58 L Pulse Oximetry 94 Oxygen Delivery Method Room Air Oxygen Flow Rate 0 Narrative Exam Narrative: He is alert and oriented. He has quite a personality type that is not suppressed by this illness. He denies any further GI bleeding since the emergency department admission last night. Heart is regular rate and rhythm with a 2/6 systolic ejection murmur Lungs are clear to auscultation bilaterally Abdomen is soft, bowel sounds positive, nontender, no organomegaly. Extremities have no ankle edema. Objective Labs Result Diagrams: 08/02/19 05:18 08/02/19 05:18 Labs: Laboratory Results - last 24 hr 08/01/19 08/01/19 08/01/19 15:50 15:50 15:50 WBC 5.0 RBC 3.99 L Hgb 11.9 L Hct 35.6 L MCV 89.1 MCH 29.7 MCHC 33.4 RDW 14.9 H Plt Count 249 Neut % (Auto) 78.8 H Lymph % (Auto) 8.9 L Williamson % (Auto) 9.4 Eos % (Auto) 2.2 Baso % (Auto) 0.7 Neut # (Auto) 4000 Lymph # (Auto) 400 L Williamson # (Auto) 500 Eos # (Auto) 100 Baso # (Auto) 0 PT 13.1 H INR 1.1 APTT 34 Sodium 137 Potassium 4.1 Chloride 96 L Carbon Dioxide 35 H BUN 36 H Creatinine 1.17 Estimated GFR 59.8 L BUN/Creatinine Ratio 30.8 H Glucose 158 H Calcium 9.0 Magnesium Total Bilirubin 0.4 AST 38 ALT 13 Alkaline Phosphatase 82 NT-Pro-B Natriuret Pep 878 H Total Protein 7.6 Albumin 3.9 Globulin 3.7 Albumin/Globulin Ratio 1.1 Lipase 83 Blood Type Antibody Screen 08/01/19 08/01/19 08/02/19 15:50 18:50 05:18 WBC 4.5 RBC 3.27 L Hgb 11.2 L 9.6 L Hct 34.0 L 29.1 L MCV 89.2 MCH 29.5 MCHC 33.0 RDW 14.7 Plt Count 216 Neut % (Auto) 76.9 H Lymph % (Auto) 10.3 L Williamson % (Auto) 9.7 Eos % (Auto) 2.4 Baso % (Auto) 0.7 Neut # (Auto) 3400 Lymph # (Auto) 500 L Williamson # (Auto) 400 Eos # (Auto) 100 Baso # (Auto) 0 PT INR APTT Sodium Potassium Chloride Carbon Dioxide BUN Creatinine Estimated GFR BUN/Creatinine Ratio Glucose Calcium Magnesium Total Bilirubin AST ALT Alkaline Phosphatase NT-Pro-B Natriuret Pep Total Protein Albumin Globulin Albumin/Globulin Ratio Lipase Blood Type A Positive Antibody Screen Negative 08/02/19 05:18 WBC RBC Hgb Hct MCV MCH MCHC RDW Plt Count Neut % (Auto) Lymph % (Auto) Williamson % (Auto) Eos % (Auto) Baso % (Auto) Neut # (Auto) Lymph # (Auto) Williamson # (Auto) Eos # (Auto) Baso # (Auto) PT INR APTT Sodium 139 Potassium 3.9 Chloride 103 Carbon Dioxide 30 BUN 33 H Creatinine 1.03 Estimated GFR > 60.0 BUN/Creatinine Ratio 32.0 H Glucose 94 Calcium 8.7 Magnesium 2.2 Total Bilirubin AST ALT Alkaline Phosphatase NT-Pro-B Natriuret Pep Total Protein Albumin Globulin Albumin/Globulin Ratio Lipase Blood Type Antibody Screen Assessment & Plan Assessment & Plan narrative: This is an 79-year-old male patient with a history of asbestosis, prostate cancer, hypertension, hyperlipidemia and complete heart block, heart failure with preserved EF and GI bleeding prompting admission. Patient has a history of lower GI bleeds and has a history of colon polyps. Bleeding began approximately 2:00 a.m. on the day of admission with multiple episodes of passing bloody stool and clots. Patient last passed blood while in the ER estimated at 500 cc. 1. Lower GI bleed, acute, present on admission, active. -patient with acute onset of rectal bleeding 07/31 with bright red and dark red blood with clots. Last bloody stool was in the ER. -patient has prior history of colon polyps and lower GI bleeding with his last episode 10-15 years ago. Last colonoscopy is reported 5 years ago. 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 The patient has previously been taking Protonix 40 mg twice daily. -patient with hemoglobin of 11.2 with hemoglobin for stable between 10.7 and 11.9 over the last year. Platelets are adequate at 249 without coagulopathy. -hgb down to 9.6 on 08/01 -Dr. Guerrero has admitted the patient with plans to observe and monitor H&H with tentative plans for scope 08/01. -preoperative COVID-19 screening initiated. -droplet precautions until COVID-19 results return 2. Chronic congestive heart failure with preserved ejection fraction, present on admission. -no complaints of chest pain or shortness of breath cough or wheezing. -patient also has history of congestive heart failure with preserved EF last documented on echo cardiogram 09/20/2018 with finding of normal LV function, EF of 70 75, moderate left ventricular thickening with normal function, right ventricle mild to moderately dilated, PA pressure estimated at 51, severely dilated left atrium and moderate dilation right atrium. -continue daily Lasix 80 mg and spironolactone 50 mg 3 times a week. Presently no edema lower extremities. -systolic murmur indicating valvular heart disease consistent with 10/02 echocardiogram evidence of moderate mitral stenosis and moderate aortic stenosis. Consider repeat Echo. 3. Complete heart block, status post pacemaker implantation, present on admission, stable. -patient without chest pain or shortness of breath. -pacemaker implanted for history of complete heart block. -per medical record the patient has an AICD implanted. Twelve lead EKG reveals sinus rhythm with 100% ventricular pacing. -chest x-ray reveals right anterior chest permanent pacemaker with biventricular leads. 4. Chronic asbestosis, presumed stable. -patient has history of asbestosis and prior left pleural effusion having undergone thoracentesis in May 2018. -chest x-ray on admission identifies bilateral pulmonary opacities unchanged from 2019 with pulmonary scarring. -will continue patient's Advair Diskus inhaler once daily as needed. 5. Chronic Hypertension, active -the patient is taking furosemide 80 mg daily, and spironolactone 50 mg 3 times weekly. -the patient is mildly hypertensive at 139/91 upon arrival down to 127/66 after admission to the floor. -will continue diuretic therapy and monitor blood pressure. 6. History of hyperlipidemia, presumed stable. -patient is not currently on cholesterol lowering medication. -will defer follow-up to primary care provider. 7. Prostate cancer, stable. -status post prostatectomy, patient with variable urinary pattern. -no evidence of recurrence. This is an 79-year-old male who presents with a recurrence of acute GI bleeding. The bleeding is slowing and has not had a bloody stool since admission. The patient denies abdominal pain or cramping. His comorbid conditions of heart failure, asbestosis and arrhythmia appears stable and uncomplicated by the current episode. Thank you for allowing us to participate in the care of this gentleman and we will continue to follow the patient. Quality VTE Deep Vein Thrombosis/Pulmonary Embolism Present on Admission: No
[2019-08-02 08:18] VITALS: BP 122/69; PULSE 90; RESP 16; TEMP 36.6; O2SAT 94
--- NOTE | 2019-08-02 08:41 | PC.NURSE ---
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 Tele order from Dr Hearn to d/c/not give the bolus. Pt has Hx 3rd degree heart block. Will encourage fluid intake today. Pt on clear liquid diet. Will continue to monitor.
[2019-08-02] MEDS: OXYCODONE/ACETAMINOPHEN 5/325 TABLET 1 TAB PO ×2 (09:30→23:33)
[2019-08-02] MEDS: BRIMONIDINE 0.2% OPHTH 5 ML 1 DROPS EYE-BOTH ×3 (09:31→20:43)
[2019-08-02] MEDS: PANTOPRAZOLE 40 MG VIAL IV ×2 (09:31→20:43)
--- NOTE | 2019-08-02 11:36 | PM.PN.1 ---
Subjective Subjective Date Patient Seen: 08/02/19 Time Patient Seen: 11:36 Interval history: No interval events. No abdominal pain hematemesis, blood per rectum since admission. Exam Vital Signs (past 8 hours): - 08/02/19 05:13 08/02/19 08:18 Temperature 98.4 F 97.8 F Pulse Rate 85 90 Respiratory Rate 16 16 Blood Pressure 130/58 L 122/69 Pulse Oximetry 94 94 Oxygen Delivery Method Room Air Oxygen Flow Rate 0 Narrative Exam Narrative: Gen-Adult male alert and oriented Abdomen-Soft non tender Objective Labs Result Diagrams: 08/02/19 05:18 08/02/19 05:18 Labs: Laboratory Results - last 24 hr 08/01/19 08/01/19 08/01/19 15:50 15:50 15:50 WBC 5.0 RBC 3.99 L Hgb 11.9 L Hct 35.6 L MCV 89.1 MCH 29.7 MCHC 33.4 RDW 14.9 H Plt Count 249 Neut % (Auto) 78.8 H Lymph % (Auto) 8.9 L School[place] % (Auto) 9.4 Eos % (Auto) 2.2 Baso % (Auto) 0.7 Neut # (Auto) 4000 Lymph # (Auto) 400 L [place] # (Auto) 500 Eos # (Auto) 100 Baso # (Auto) 0 PT 13.1 H INR 1.1 APTT 34 Sodium 137 Potassium 4.1 Chloride 96 L Carbon Dioxide 35 H BUN 36 H Creatinine 1.17 Estimated GFR 59.8 L BUN/Creatinine Ratio 30.8 H Glucose 158 H Calcium 9.0 Magnesium Total Bilirubin 0.4 AST 38 ALT 13 Alkaline Phosphatase 82 NT-Pro-B Natriuret Pep 878 H Total Protein 7.6 Albumin 3.9 Globulin 3.7 Albumin/Globulin Ratio 1.1 Lipase 83 Blood Type Antibody Screen 08/01/19 08/01/19 08/02/19 15:50 18:50 05:18 WBC 4.5 RBC 3.27 L Hgb 11.2 L 9.6 L Hct 34.0 L 29.1 L MCV 89.2 MCH 29.5 MCHC 33.0 RDW 14.7 Plt Count 216 Neut % (Auto) 76.9 H Lymph % (Auto) 10.3 L [place] % (Auto) 9.7 Eos % (Auto) 2.4 Baso % (Auto) 0.7 Neut # (Auto) 3400 Lymph # (Auto) 500 L [place] # (Auto) 400 Eos # (Auto) 100 Baso # (Auto) 0 PT INR APTT Sodium Potassium Chloride Carbon Dioxide BUN Creatinine Estimated GFR BUN/Creatinine Ratio Glucose Calcium Magnesium Total Bilirubin AST ALT Alkaline Phosphatase NT-Pro-B Natriuret Pep Total Protein Albumin Globulin Albumin/Globulin Ratio Lipase Blood Type A Positive Antibody Screen Negative 08/02/19 05:18 WBC RBC Hgb Hct MCV MCH MCHC RDW Plt Count Neut % (Auto) Lymph % (Auto) [place] % (Auto) Eos % (Auto) Baso % (Auto) Neut # (Auto) Lymph # (Auto) [place] # (Auto) Eos # (Auto) Baso # (Auto) PT INR APTT Sodium 139 Potassium 3.9 Chloride 103 Carbon Dioxide 30 BUN 33 H Creatinine 1.03 Estimated GFR > 60.0 BUN/Creatinine Ratio 32.0 H Glucose 94 Calcium 8.7 Magnesium 2.2 Total Bilirubin AST ALT Alkaline Phosphatase NT-Pro-B Natriuret Pep Total Protein Albumin Globulin Albumin/Globulin Ratio Lipase Blood Type Antibody Screen Assessment & Plan Assessment & Plan narrative: 79M GI bleed hemodynamically stable. No further blood per rectum over the past 12 hrs. Hct 29 this AM from baseline 32 and 35 at admission. -Bowel prep today -Esophagoduodenoscopy and colonoscopy tomorrow 08/02 will require anesthesia for CHF hx of CVA and heart block with pacer. -Hold ASA -Protonix -NPO at midnight -SCDs only Quality VTE Deep Vein Thrombosis/Pulmonary Embolism Present on Admission: No
[2019-08-02 12:05] VITALS: BP 124/68; PULSE 88; RESP 16; TEMP 36.6; O2SAT 94
--- NOTE | 2019-08-02 12:37 | CM.DANOTE ---
DCP assessment: EMR Reviewed: patient is a 79 yr old male who was admitted for GI bleed. Patients PCP is Dr. Burns. CM/RN called patient on the phone due to patient being in isolation for Covid-19 R/O. Patient currently lives with his in a single family home in [place]. Patient was alert and oriented x3 at time of Cm/Rn phone call. Patient stated that he is independent with all ADL's at base line. In AM rounds patient was discussed and determined that he will go for EDG and colonoscopy tomorrow 08/03/2019. I: Medicare and [employer] PPO Plan: D/C home with family possible HH if it is needed at D/C due to weakness from GI bleed. Cm department will continue to follow to assist with any new D/C planning need that might arise . Safia Grimaldo RN Discharge Planning/Care Management Advanced directive, confirm from [facility] Start: 08/01/19 20:50 Freq: Q24H Status: Active Protocol: Document 08/01/19 20:57 HF (Rec: 08/01/19 21:02 HF [id number]) Advance Directive, confirm on record Time 21:02 Person contacted family Copy received No CM Discharge Assessment Start: 08/02/19 12:34 Freq: Status: Active Protocol: Document 08/02/19 12:34 HS (Rec: 08/02/19 12:37 HS [id number]) Discharge Planning Assessment Assigned [employer] Safia Grimaldo RN Contact Information Kiya Estrada- [phone]- Advance Directives? Yes History Provided By Patient,Medical Record Has Patient been admitted in last 30 No days? Prior Living Arrangements House Household Members spouse,children Independent with ADL's Yes Is patient alert and oriented? Yes Caregiver for Another No Comment pt admits to sleeping in recliner as he can breath better. is SOB when lying down , at baseline Patient/Family Preference Home with Home Health Comment possible home with family and HH if needed at D/C Barriers to Discharge No Discharge Plan Home Transportation Arrangement either Fabio or pt's Kiya will pick him up at d/c Referrals Initiated Home Health Additional Comment Maybe need a home health referral if needed at D/C Whiteboard Updated in Patient Room with No name and ext. # of [employer] Comment Patient is in covid-19 R/O isolation and CM/RN spoke with patient on the phone. Review Status In Process Next Review Type Continued Stay Review
[2019-08-02] MEDS: PEG3350/SOD SULF,BICARB,CL/KCL 4,000 ML SOLUTION 4000 ML PO (14:16)
[2019-08-02 14:20] LABS: Add Manual Diff / Slide Review NO; Basophils Absolute Auto 100 /uL (0-100); Basophils Percent Auto 1.6 % (0-2); Eosinophils Absolute Auto 100 /uL (0-450); Eosinophils Percent Auto 1.3 % (2-4); Hematocrit 27.1 % (41-53); Hemoglobin 8.8 g/dL (13.5-17.5); Lymphocytes Absolute Auto 300 /uL (1100-4500); Lymphocytes Percent Auto 7.7 % (25-40); Mean Corpuscular HGB Conc 32.7 % (30-36); Mean Corpuscular Hemoglobin 29.2 PG (26-34); Mean Corpuscular Volume 89.3 fL (80-100); Monocytes Absolute Auto 400 /uL (0-900); Monocytes Percent Auto 7.9 % (3-14); Neutrophils Absolute Auto 3700 /uL (1500-7000); Neutrophils Percent Auto 81.5 % (50-75); Platelet Count 202 X10^3/uL (150-400); Red Blood Cell Count 3.03 X10^6/uL (4.5-5.9); Red Cell Distribution Width 14.7 % (11.6-14.8); White Blood Cell Count 4.5 X10^3/uL (4.5-11.0)
[2019-08-02 15:14] VITALS: BP 99/69; PULSE 73; RESP 16; TEMP 36.3; O2SAT 95
--- NOTE | 2019-08-02 17:57 | PC.NURSE ---
during assessment, encouraged patient to cont. drinking bowel prep. Pt reports the drink makes him feel nauseated but when nurse asked how he felt while at bedside pt denied any nausea or vomiting. Pt has nearly the entire container still to consume. Pt states, I will go at my own pace, this stuff makes me feel ill. This nurse asked if I could bring in any ice to help w/ flavor/taste. Pt reported that the taste does not bother him. Encouraged small sips. Educated patient in regards to scope and if there is not good visualization captured during scope due to lack of prep, then the process may have to be repeated. Pt states he understands.
[2019-08-02 20:10] VITALS: BP 123/82; PULSE 85; RESP 20; TEMP 36.3; O2SAT 94
[2019-08-02] MEDS: TERAZOSIN 1 MG CAPSULE 2 MG PO (20:43)
[2019-08-02 23:51] LABS: COVID19 Sendout Not Detected (Not Detect)
[2019-08-02 23:57] VITALS: BP 120/58; PULSE 92; RESP 20; TEMP 36.6; O2SAT 96
[2019-08-03] VITALS (7 sets, daily range): BP systolic 90–130; BP diastolic 59–79; PULSE 81–92; RESP 16–85; TEMP 36.1–37.2; O2SAT 93–96
[2019-08-03 05:08] LABS: Add Manual Diff / Slide Review NO; Basophils Absolute Auto 0 /uL (0-100); Basophils Percent Auto 1.3 % (0-2); Eosinophils Absolute Auto 100 /uL (0-450); Eosinophils Percent Auto 3.5 % (2-4); Hematocrit 25.2 % (41-53); Hemoglobin 8.3 g/dL (13.5-17.5); Lymphocytes Absolute Auto 500 /uL (1100-4500); Lymphocytes Percent Auto 12.6 % (25-40); Mean Corpuscular HGB Conc 32.9 % (30-36); Mean Corpuscular Hemoglobin 29.3 PG (26-34); Mean Corpuscular Volume 89.1 fL (80-100); Monocytes Absolute Auto 300 /uL (0-900); Monocytes Percent Auto 7.9 % (3-14); Neutrophils Absolute Auto 2700 /uL (1500-7000); Neutrophils Percent Auto 74.7 % (50-75); Platelet Count 191 X10^3/uL (150-400); Red Blood Cell Count 2.83 X10^6/uL (4.5-5.9); Red Cell Distribution Width 14.9 % (11.6-14.8); White Blood Cell Count 3.6 X10^3/uL (4.5-11.0)
[2019-08-03] MEDS: FLEETS ENEMA 2 EACH PR (05:34)
[2019-08-03 05:39] LABS: BUN Creatinine Ratio 23.5 (6-22); Blood Urea Nitrogen 23 mg/dL (9-20); Calcium 8.4 mg/dL (8.4-10.2); Carbon Dioxide 32 mmol/L (22-32); Chloride 101 mmol/L (98-107); Estimated Glomerular Filt Rate > 60.0 mL/min (>60); Glucose 97 mg/dL (80-110); HEMOLYSIS < 15 (0-50); Magnesium 2.1 mg/dL (1.6-2.3); Potassium 3.2 mmol/L (3.4-5.1); Sodium 138 mmol/L (137-145)
[2019-08-03] MEDS: FLEETS ENEMA 1 EACH PR (06:36)
--- NOTE | 2019-08-03 06:37 | PC.NURSE ---
Addendum entered by Parris Lam R.N. 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 No rectal bleeding noted. Pt had a liquid dark brown stool around midnight and was reported to me he finished all of his Goltely prep on tali shift. Dr. Patel notified in the morning of pt's stool progress and ordered 2 fleet enemas. After 1st enema at 0530 pt had 300mL of brown stool but appeared to be clearing up. 2nd Enema administered at 0630, awaiting results. Kept NPO after MN
--- NOTE | 2019-08-03 07:47 | PM.PN.1 ---
Subjective Subjective Date Patient Seen: 08/03/19 Time Patient Seen: 07:47 Interval history: No bloody bowel movements yesterday. Completed bowel prep with PEG however continues to have some solid brown stool. Exam Vital Signs (past 8 hours): - 08/02/19 23:57 08/03/19 05:08 Temperature 97.9 F 97.8 F Pulse Rate 92 H 87 Respiratory Rate 20 85 H Blood Pressure 120/58 L 124/64 Pulse Oximetry 96 93 Oxygen Delivery Method Room Air Oxygen Flow Rate 0 Narrative Exam Narrative: General adult male alert oriented no acute distress Abdomen soft nontender nondistended Objective Labs Result Diagrams: 08/03/19 04:53 08/03/19 04:53 Labs: Laboratory Results - last 24 hr 08/02/19 08/03/19 08/03/19 14:11 04:53 04:53 WBC 4.5 3.6 L RBC 3.03 L 2.83 L Hgb 8.8 L 8.3 L Hct 27.1 L 25.2 L MCV 89.3 89.1 MCH 29.2 29.3 MCHC 32.7 32.9 RDW 14.7 14.9 H Plt Count 202 191 Neut % (Auto) 81.5 H 74.7 Lymph % (Auto) 7.7 L 12.6 L Davison % (Auto) 7.9 7.9 Eos % (Auto) 1.3 L 3.5 Baso % (Auto) 1.6 1.3 Neut # (Auto) 3700 2700 Lymph # (Auto) 300 L 500 L Davison # (Auto) 400 300 Eos # (Auto) 100 100 Baso # (Auto) 100 0 Sodium 138 Potassium 3.2 L Chloride 101 Carbon Dioxide 32 BUN 23 H Creatinine 0.98 Estimated GFR > 60.0 BUN/Creatinine Ratio 23.5 H Glucose 97 Calcium 8.4 Magnesium 2.1 Assessment & Plan Assessment & Plan narrative: 79-year-old male with a GI bleed hemodynamically stable not requiring transfusion. He received a bowel prep yesterday however he is not prepared today as he continues to have solid brown stool. No further bloody bowel movements however hematocrit is 25 today from 29 yesterday and baseline of 33. Will cancel the scheduled EGD and colonoscopy for today and rescheduled for tomorrow. -rebound prepped with 238 g of MiraLax and 64 oz of liquid -scheduled PO Bisacodyl -clear liquid diet today NPO at midnight Quality VTE Deep Vein Thrombosis/Pulmonary Embolism Present on Admission: No
[2019-08-03] MEDS: POTASSIUM CHLORIDE 40 MEQ in SODIUM CHLORIDE 0.9% 500 ML 130 ML IV (08:11)
[2019-08-03] MEDS: PANTOPRAZOLE 40 MG VIAL IV ×2 (08:12→21:31)
[2019-08-03] MEDS: BISACODYL 5 MG TABLET 10 MG PO ×2 (08:12→21:32)
[2019-08-03] MEDS: FUROSEMIDE 40 MG TABLET 80 MG PO (08:13)
[2019-08-03] MEDS: polyethylene glycoL 3350 17 GM POWD.PACK 238 GM PO (08:14)
[2019-08-03] MEDS: POTASSIUM CHLORIDE 20 MEQ TAB 40 MEQ PO (08:15)
[2019-08-03] MEDS: BRIMONIDINE 0.2% OPHTH 5 ML 1 DROPS EYE-BOTH ×3 (08:18→21:32)
--- NOTE | 2019-08-03 08:27 | P.PN_ITS ---
Subjective Subjective Date Patient Seen: 08/03/19 Time Patient Seen: 08:27 Interval history: He underwent a bowel prep last night initially with reddish stool and then brown stool but has not cleared sufficiently to undergo colonoscopy today. His hemoglobin has dropped slightly from 8.8 down to 8.3. His potassium is dropped to 3.2. He will be receiving additional IV potassium today. Exam Vital Signs (past 8 hours): - 08/03/19 05:08 Temperature 97.8 F Pulse Rate 87 Respiratory Rate 85 H Blood Pressure 124/64 Pulse Oximetry 93 Oxygen Delivery Method Room Air Oxygen Flow Rate 0 Narrative Exam Narrative: He is alert and oriented x3. His personality is a irrepresable. Heart is regular rate and rhythm with a 2/6 EDILIA Lungs are clear to auscultation bilaterally. Abdomen is soft, bowel sounds positive, nontender, no organomegaly. Extremities have no ankle edema. Objective Labs Result Diagrams: 08/03/19 04:53 08/03/19 04:53 Labs: Laboratory Results - last 24 hr 08/02/19 08/03/19 08/03/19 14:11 04:53 04:53 WBC 4.5 3.6 L RBC 3.03 L 2.83 L Hgb 8.8 L 8.3 L Hct 27.1 L 25.2 L MCV 89.3 89.1 MCH 29.2 29.3 MCHC 32.7 32.9 RDW 14.7 14.9 H Plt Count 202 191 Neut % (Auto) 81.5 H 74.7 Lymph % (Auto) 7.7 L 12.6 L Simpson % (Auto) 7.9 7.9 Eos % (Auto) 1.3 L 3.5 Baso % (Auto) 1.6 1.3 Neut # (Auto) 3700 2700 Lymph # (Auto) 300 L 500 L Simpson # (Auto) 400 300 Eos # (Auto) 100 100 Baso # (Auto) 100 0 Sodium 138 Potassium 3.2 L Chloride 101 Carbon Dioxide 32 BUN 23 H Creatinine 0.98 Estimated GFR > 60.0 BUN/Creatinine Ratio 23.5 H Glucose 97 Calcium 8.4 Magnesium 2.1 Assessment & Plan Assessment & Plan narrative: This is an 79-year-old male patient with a history of asbestosis, prostate cancer, hypertension, hyperlipidemia and complete heart block, heart failure with preserved EF and GI bleeding prompting admission. Patient has a history of lower GI bleeds and has a history of colon polyps. Bleeding began approximately 2:00 a.m. on the day of admission with multiple episodes of passing bloody stool and clots. Patient last passed blood while in the ER on 07/31 estimated at 500 cc. 1. Lower GI bleed, acute, present on admission, active. -patient with acute onset of rectal bleeding 07/31 with bright red and dark red blood with clots. Last bloody stool was in the ER. -patient has prior history of colon polyps and lower GI bleeding with his last episode 10-15 years ago. Last colonoscopy is reported 5 years ago. 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 The patient has previously been taking Protonix 40 mg twice daily. -patient with hemoglobin of 11.2 with hemoglobin for stable between 10.7 and 11.9 over the last year. Platelets are adequate at 249 without coagulopathy. -hgb down to 9.6 on 08/01 and then to 8.8 on 08/02. -Dr. Guerrero has admitted the patient with plans to observe and monitor H&H with plans for colonoscopy 08/02. -preoperative COVID-19 screening initiated on 07/31 and result is still pending on 08/02. -droplet precautions until COVID-19 results return 2. Chronic congestive heart failure with preserved ejection fraction, present on admission. -no complaints of chest pain or shortness of breath, cough or wheezing. -patient also has history of congestive heart failure with preserved EF last documented on echo cardiogram 09/20/2018 with finding of normal LV function, EF of 70 75, moderate left ventricular thickening with normal function, right ventricle mild to moderately dilated, PA pressure estimated at 51, severely dilated left atrium and moderate dilation right atrium. -continue daily Lasix 80 mg and spironolactone 50 mg 3 times a week. Presently no edema lower extremities. -systolic murmur indicating valvular heart disease consistent with 10/02 echocardiogram evidence of moderate mitral stenosis and moderate aortic stenosis. Consider repeat Echo. 3. Complete heart block, status post pacemaker implantation, present on admission, stable. -patient without chest pain or shortness of breath. -pacemaker implanted for history of complete heart block. -per medical record the patient has an AICD implanted. Twelve lead EKG reveals sinus rhythm with 100% ventricular pacing. -chest x-ray reveals right anterior chest permanent pacemaker with biventricular leads. 4. Chronic asbestosis, presumed stable. -patient has history of asbestosis and prior left pleural effusion having undergone thoracentesis in May 2018. -chest x-ray on admission identifies bilateral pulmonary opacities unchanged from 2019 with pulmonary scarring. -will continue patient's Advair Diskus inhaler once daily as needed. 5. Chronic Hypertension, active -the patient is taking furosemide 80 mg daily, and spironolactone 50 mg 3 times weekly. -the patient is mildly hypertensive at 139/91 upon arrival down to 127/66 after admission to the floor. -will continue diuretic therapy and monitor blood pressure. 6. History of hyperlipidemia, presumed stable. -patient is not currently on cholesterol lowering medication. -will defer follow-up to primary care provider. 7. Prostate cancer, stable. -status post prostatectomy, patient with variable urinary pattern. -no evidence of recurrence. 8. Systolic heart murmur, presumed stable -Both Moderate and MS present on 10/02 Echo report 9. Anemia, acute, present on admission, active -daily CBC and transfuse if less than 7.0 Quality VTE Deep Vein Thrombosis/Pulmonary Embolism Present on Admission: No
--- NOTE | 2019-08-03 11:38 | PC.NURSE ---
Addendum entered by Robyn Stark R.N. 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 He is using the bsc more now. Original Note: Patient is A&Ox3, started on Miralax as go lytely prep did not clear patient out and he will be going for his EGD and Colonoscopy tomorrow morning. He will be getting miralax throughout the day. He will be on his 3rd glass soon. Up with 1 pa and walker, K+ level low at 3.2 and patient is getting a krider now. He will be heplocked after.
[2019-08-03 21:25] LABS: BUN Creatinine Ratio 17.2 (6-22); Blood Urea Nitrogen 17 mg/dL (9-20); Calcium 8.7 mg/dL (8.4-10.2); Carbon Dioxide 31 mmol/L (22-32); Chloride 102 mmol/L (98-107); Estimated Glomerular Filt Rate > 60.0 mL/min (>60); Glucose 120 mg/dL (80-110); HEMOLYSIS < 15 (0-50); Magnesium 2.1 mg/dL (1.6-2.3); Potassium 3.6 mmol/L (3.4-5.1); Sodium 137 mmol/L (137-145)
[2019-08-03] MEDS: TERAZOSIN 1 MG CAPSULE 2 MG PO (21:31)
[2019-08-03] MEDS: OXYCODONE/ACETAMINOPHEN 5/325 TABLET 1 TAB PO (21:33)
[2019-08-03] MEDS: ALBUTEROL HFA 60 PUFF/8 GM INH INH (23:20)
--- NOTE | 2019-08-03 23:20 | PC.NURSE ---
2300 - Pt sitting up on edge of bed. Reports feeling SOB. States that he uses a rescue inhaler at home. Unknown med. Hospitalist notified. Orders pending. RT aware.
[2019-08-04] VITALS (14 sets, daily range): BP systolic 84–144; BP diastolic 51–78; PULSE 74–97; RESP 16–25; TEMP 36.2–36.9; O2SAT 92–96; BMI 27.1
--- NOTE | 2019-08-04 02:30 | PC.NURSE ---
Resumed care of patient, he is sleeping, respirations even, unlabored, HOB at 30 degrees. NPO.
[2019-08-04 05:24] LABS: Add Manual Diff / Slide Review NO; Basophils Absolute Auto 0 /uL (0-100); Basophils Percent Auto 0.7 % (0-2); Eosinophils Absolute Auto 100 /uL (0-450); Eosinophils Percent Auto 1.8 % (2-4); Lymphocytes Absolute Auto 400 /uL (1100-4500); Lymphocytes Percent Auto 9.8 % (25-40); Mean Corpuscular HGB Conc 33.5 % (30-36); Mean Corpuscular Hemoglobin 29.9 PG (26-34); Mean Corpuscular Volume 89.2 fL (80-100); Monocytes Absolute Auto 300 /uL (0-900); Monocytes Percent Auto 9.3 % (3-14); Neutrophils Absolute Auto 2800 /uL (1500-7000); Neutrophils Percent Auto 78.4 % (50-75); Platelet Count 177 X10^3/uL (150-400); Red Blood Cell Count 2.69 X10^6/uL (4.5-5.9); Red Cell Distribution Width 14.9 % (11.6-14.8); White Blood Cell Count 3.6 X10^3/uL (4.5-11.0)
[2019-08-04 05:36] LABS: BUN Creatinine Ratio 15.5 (6-22); Blood Urea Nitrogen 16 mg/dL (9-20); Calcium 8.6 mg/dL (8.4-10.2); Carbon Dioxide 30 mmol/L (22-32); Chloride 104 mmol/L (98-107); Estimated Glomerular Filt Rate > 60.0 mL/min (>60); Glucose 96 mg/dL (80-110); HEMOLYSIS < 15 (0-50); Potassium 3.8 mmol/L (3.4-5.1); Sodium 138 mmol/L (137-145)
[2019-08-04] MEDS: ALBUTEROL HFA 60 PUFF/8 GM INH INH (06:35)
--- NOTE | 2019-08-04 09:39 | P.PN_ITS ---
Subjective Subjective Date Patient Seen: 08/04/19 Time Patient Seen: 09:39 Interval history: No acute overnight events. Exam Vital Signs (past 8 hours): - 08/04/19 04:20 08/04/19 07:35 Temperature 97.8 F 98.1 F Pulse Rate 82 95 H Respiratory Rate 18 20 Blood Pressure 99/63 125/64 Pulse Oximetry 92 95 Oxygen Delivery Method Room Air Oxygen Flow Rate 0 Narrative Exam Narrative: General adult male alert oriented no acute distress Abdomen soft nontender nondistended Objective Labs Result Diagrams: 08/04/19 05:09 08/04/19 05:09 Labs: Laboratory Results - last 24 hr 08/01/19 08/03/19 08/04/19 19:45 21:00 05:09 WBC 3.6 L RBC 2.69 L Hgb 8.0 L Hct 24.0 L MCV 89.2 MCH 29.9 MCHC 33.5 RDW 14.9 H Plt Count 177 Neut % (Auto) 78.4 H Lymph % (Auto) 9.8 L [place] % (Auto) 9.3 Eos % (Auto) 1.8 L Baso % (Auto) 0.7 Neut # (Auto) 2800 Lymph # (Auto) 400 L [place] # (Auto) 300 Eos # (Auto) 100 Baso # (Auto) 0 Sodium 137 Potassium 3.6 Chloride 102 Carbon Dioxide 31 BUN 17 Creatinine 0.99 Estimated GFR > 60.0 BUN/Creatinine Ratio 17.2 Glucose 120 H Calcium 8.7 Magnesium 2.1 COVID-19 PCR Not detected 08/04/19 05:09 WBC RBC Hgb Hct MCV MCH MCHC RDW Plt Count Neut % (Auto) Lymph % (Auto) [place] % (Auto) Eos % (Auto) Baso % (Auto) Neut # (Auto) Lymph # (Auto) [place] # (Auto) Eos # (Auto) Baso # (Auto) Sodium 138 Potassium 3.8 Chloride 104 Carbon Dioxide 30 BUN 16 Creatinine 1.03 Estimated GFR > 60.0 BUN/Creatinine Ratio 15.5 Glucose 96 Calcium 8.6 Magnesium 2.0 COVID-19 PCR Assessment & Plan Assessment & Plan narrative: 79-year-old male with a GI bleed hemodynamically stable. He has been adequately prepped for esophagoduodenoscopy and colonoscopy today. Quality VTE Deep Vein Thrombosis/Pulmonary Embolism Present on Admission: No
--- NOTE | 2019-08-04 09:45 | PM.PN.1 ---
Subjective Subjective Date Patient Seen: 08/04/19 Interval history: Jonas Estrada is an 79-year-old male with a past medical history significant for hypertension, hyperlipidemia, diastolic congestive heart failure, complete heart block status post AICD, prostate cancer, status post prostatectomy, asbestosis, and histo presented to the ED who presented to the ED due to hematochezia. Medicine team was consulted for management of comorbidities, specifically diastolic heart failure and valvular heart disease. The patient is resting in bedside chair comfortably. He reports mild shortness of breath and exhibits mild conversational dyspnea. The patient is saturating well on room air with oxygen saturation in the mid 90s. Informed him that his shortness of breath is likely due to significant anemia with valvular heart disease. Plan to transfuse 1 unit PRBC today. He has no other complaints and denies headache, chest pain, abdominal pain, nausea, vomiting, fever, chills, dysuria, or diarrhea. He endorses chronic constipation. He is voiding and eliminating without difficulty. He is up ambulating with assistance. Exam Vital Signs (past 8 hours): - 08/04/19 04:20 08/04/19 07:35 Temperature 97.8 F 98.1 F Pulse Rate 82 95 H Respiratory Rate 18 20 Blood Pressure 99/63 125/64 Pulse Oximetry 92 95 Oxygen Delivery Method Room Air Oxygen Flow Rate 0 Narrative Exam Narrative: General: Elderly male sitting in bedside chair and in no acute distress, well-developed, well-nourished, slight irritabilty appropriately interactive HEENT: Normocephalic, atraumatic. External ears without defect. Pupils equal, round, and reactive to light. Anicteric sclerae, moist conjunctivae, and no lid lag. Oropharynx free of erythema and cobble stoning with moist mucosa. Neck: Supple with full range of motion. No jugular venous distension. No lymphadenopathy or thyromegaly. Cardiovascular: Regular rate and rhythm without murmurs, rubs, or gallops appreciated. Pulmonary: Clear to auscultation bilaterally with fine bibasilar crackles. No wheezes or rhonchi. Normal respiratory effort with no use of accessory muscles. Abdomen: Soft, bowel sounds present, nontender, nondistended. No hepatosplenomegaly or masses appreciated. Extremities: No clubbing, cyanosis, or edema. Skin: Normal temperature, turgor, and texture; no rash, ulcers, or subcutaneous nodules appreciated. Neurological: Cranial nerves grossly intact. Psychiatric: Slightly irritable mood and affect. Appears alert and oriented to person, place, and time. Objective Labs Result Diagrams: 08/04/19 05:09 08/04/19 05:09 Labs: Laboratory Results - last 24 hr 08/01/19 08/01/19 08/03/19 15:50 19:45 21:00 WBC RBC Hgb Hct MCV MCH MCHC RDW Plt Count Neut % (Auto) Lymph % (Auto) [place] % (Auto) Eos % (Auto) Baso % (Auto) Neut # (Auto) Lymph # (Auto) [place] # (Auto) Eos # (Auto) Baso # (Auto) Sodium 137 Potassium 3.6 Chloride 102 Carbon Dioxide 31 BUN 17 Creatinine 0.99 Estimated GFR > 60.0 BUN/Creatinine Ratio 17.2 Glucose 120 H Calcium 8.7 Magnesium 2.1 COVID-19 PCR Not detected Crossmatch See Detail 08/04/19 08/04/19 05:09 05:09 WBC 3.6 L RBC 2.69 L Hgb 8.0 L Hct 24.0 L MCV 89.2 MCH 29.9 MCHC 33.5 RDW 14.9 H Plt Count 177 Neut % (Auto) 78.4 H Lymph % (Auto) 9.8 L [place] % (Auto) 9.3 Eos % (Auto) 1.8 L Baso % (Auto) 0.7 Neut # (Auto) 2800 Lymph # (Auto) 400 L [place] # (Auto) 300 Eos # (Auto) 100 Baso # (Auto) 0 Sodium 138 Potassium 3.8 Chloride 104 Carbon Dioxide 30 BUN 16 Creatinine 1.03 Estimated GFR > 60.0 BUN/Creatinine Ratio 15.5 Glucose 96 Calcium 8.6 Magnesium 2.0 COVID-19 PCR Crossmatch Assessment & Plan Assessment & Plan narrative: Jonas Estrada is an 79-year-old male with a past medical history significant for hypertension, hyperlipidemia, diastolic congestive heart failure, complete heart block status post AICD, prostate cancer, status post prostatectomy, asbestosis, and histo presented to the ED who presented to the ED due to hematochezia. Medicine team was consulted for management of comorbidities, specifically diastolic heart failure and valvular heart disease. 1. Acute lower GI bleed with acute blood loss anemia, present on admission. Active. -Patient with acute onset of rectal bleeding 07/31 with bright red and dark red blood with clots. Last bloody stool was in the ED prior to admission. -Patient has a prior history of colon polyps and lower GI bleeding with his last episode 10-15 years ago. Last colonoscopy is reported 5 years ago. 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 The patient has previously been taking Protonix 40 mg twice daily. -Initial hemoglobin 11.9. Hemoglobin has trended down now 8.0. Plan to transfuse 1 unit PRBC due to CHF and valvular heart disease. Transfusion goal hemoglobin less than < 8.0. Continue to monitor H&H daily. -Iron profile demonstrated iron deficiency anemia. Plan to give Venofer 200 mg IV x1. Patient has significant constipation, therefore, supplemental iron relatively contraindicated. -Preoperative COVID-19 screening negative and ruled out. -General surgery, Dr. Patel, plans for colonoscopy today. 2. Diastolic congestive heart failure, chronic, present on admission. Stable. -Does not represent CHF exacerbation. -No complaints of chest pain, shortness of breath, cough or wheezing on admission. -Echocardiogram on 09/20/2018 demonstrated normal LV function, EF of 70-75%, moderate left ventricular thickening with normal function, right ventricle mild to moderately dilated, PA pressure estimated at 51, severely dilated left atrium and moderate dilation right atrium. -Continue home furosemide 80 mg daily and spironolactone 50 mg 3 times a week. -Continue strict I&Os and daily weights. Net -2 L. -Continue to monitor electrolytes and replete as necessary. 3. Complete heart block, status post pacemaker implantation, present on admission. Stable. -Patient had third-degree heart block status post AICD. Patient is followed by cardiology Dr. Richmond. -Patient without chest pain or shortness of breath. -EKG demonstrated sinus rhythm with 100% ventricular pacing. -Chest x-ray reveals right anterior chest permanent pacemaker with biventricular leads. 4. Chronic asbestosis, present on admission. Presumed stable. -Patient has history of asbestosis and prior left pleural effusion having undergone thoracentesis in May 2018. -Chest x-ray on admission demonstrated bilateral pulmonary opacities unchanged from 2019 with pulmonary scarring. -Continue home Advair Diskus inhaler once daily as needed. 6. Hypertension, chronic, present on admission. Stable. -Continue home furosemide 80 mg daily and spironolactone 50 mg 3 times weekly. 7. Hyperlipidemia, chronic, present on admission. Presumed stable. -Patient is not currently on cholesterol lowering medication. -Defer follow-up and treatment to primary care provider. 8. History of prostate cancer presumed to be in remission -Status post prostatectomy with variable urinary pattern. -No evidence of recurrence. 9. Valvular heart disease, chronic, present on admission. Stable. -Patient has both moderate aortic stenosis and mitral stenosis on echocardiogram 09/2018. Thank you for this most interesting consult. Medicine team will continue to follow along with you. Quality VTE Deep Vein Thrombosis/Pulmonary Embolism Present on Admission: No
[2019-08-04] MEDS: BISACODYL 5 MG TABLET 10 MG PO (09:49)
[2019-08-04] MEDS: FUROSEMIDE 40 MG TABLET 80 MG PO (09:49)
[2019-08-04] MEDS: SPIRONOLACTONE 50 MG TABLET PO (09:49)
[2019-08-04] MEDS: BRIMONIDINE 0.2% OPHTH 5 ML 1 DROPS EYE-BOTH (09:49)
[2019-08-04] MEDS: SODIUM CHLORIDE 0.9% FLUSH 10 ML IV (09:50)
[2019-08-04] MEDS: PANTOPRAZOLE 40 MG VIAL IV (09:50)
[2019-08-04 10:06] LABS: HEMOLYSIS < 15 (0-50); Iron 25 ug/dL (49-181)
[2019-08-04 10:16] LABS: Percent Iron Saturation 10 % (20-50); Total Iron Binding Capacity 256 ug/dL (261-462); Transferrin 213 mg/dL (206-381)
[2019-08-04] MEDS: IRON SUCROSE 200 MG in SODIUM CHLORIDE 0.9% 100 ML 220 ML IV (10:22)
--- NOTE | 2019-08-04 10:44 | PC.NURSE ---
Day shift: Pt left unit at approx 1045. IV iron sucrose infusing per MD orders. Will transfuse blood when Pt back on AC unit.
[2019-08-04] MEDS: LACTATED RINGERS 1,000 ML 42 ML IV (11:00)
--- NOTE | 2019-08-04 12:04 | PM.OP.ENDO ---
Operative Date/Time/Diagnoses Date of procedure: 08/04/19 Time of procedure: 12:04 Pre-op diagnosis: GI bleed Post-op diagnosis: same Procedure & Clinicians Study performed: Esophagoduodenoscopy and Colonoscopy Same procedure as scheduled: Yes Indications: Blood per rectum Surgeon: Nick Patel Procedure Notes SCOAP/Timeout: Performed Procedure in detail: Time out was performed. Procedural sedation was administered by anesthesia. A bite block was placed. the scope was inserted into the mouth and advanced through the esophagus and into the stomach. The pylorus was intubated and the duodenum was jeremiah to the 3rd portion. The scope was retroflexed within the stomach and there was a hiatal hernia. There was mild antral gastritis, no ulcers or active bleeding. The scope was withdrawn into the esophagus the Z line was seen at 35 cm from the incisions. There was no dia's esophagitis or masses or strictures. Stomach was desufflated and scope removed. Patient tolerated procedure well. Patient placed in left lateral decubitus position. A rectal exam demonstrated no external hemorrhoids no internal masses. Colonoscopy scope was placed into the rectum and advanced through the colon to the cecum The quality of the prep was poor and visualization was difficult despite extensive irrigation. The ileocecal valvle was reached and I confirmed this by external palpation of the cecum as prep was poor. There were no gross masses or polyps. There was no active bleeding or clots. There was lo diverticulosis from rectum to cecum. The scope was carefully withdrawn. Scope withdrawal time: 8 Findings: gastritis Specimen(s): none sent Complications: none Impression: Gastritis Post-procedure Recommendations: Stop medication(s) (ASA 325 TID) Disposition: Acute Care
--- NOTE | 2019-08-04 12:11 | P.DS_ITS ---
History of Present Illness History of Present Illness Date Patient Seen: 08/04/19 Chief complaint: passing blood Narrative: This is an 79yo man with h/o asbestosis, pulmonary effusion, complete heart block status post AICD/pacer placement, hypertension, hyperlipidemia, prostate cancer status post prostatectomy, history of colon polyps who presented to the ER for GI bleeding which began today around 2PM. He felt some rumbling in his abdomen and when he went to the toilet he saw bright and dark blood with clots present. He denies a recent history of melena. He watches his stool cirilo use he had some melena in the past and was found to have colon polyps. He reports that he takes 325mg ASA three times daily for a history of optic stroke. He believes his pacer is a pacer only and not an AICD, although notes from a past admission refer to it as an AICD. He says his heart block caused his heart rate to go into the 30's and he is dependent on the pacing. Discharge Providers Provider Date of admission: 08/03/19 11:33 Discharge Date: 08/04/19 Primary care physician: Jaime Burns MD Consults: 08/01/19 21:00 Consult to Hospitalist Service Routine Comment: Consulting Provider: Raphael Rodriguez Reason for consultation: GIB, CAD, elevated BNP Has provider been notified: Yes 08/03/19 23:04 Consult to Respiratory Therapy Evaluate & Treat Comment: Physician Instructions: Evaluate and treat Discharge provider: Nick Patel MD Summary Hospital Course Discharge Diagnosis: GI bleed Gastritis Heart block Congestive heart failure Hospital Course: Patient was admitted for management of a GI bleed. Internal medicine was consulted for management of his heart block and congestive heart failure. His bleeding likely self resolved as he had no further bloody bowel movements well he was hospitalized. He had a slow down trending of his blood count and underwent esophagoduodenoscopy and colonoscopy 08/03. The EGD demonstrated gastritis there was no active bleeding or ulcers. The colonoscopy showed no evidence of bleeding but lo diverticulosis with poor prep. As recommended by medicine he received 1 unit of transfusion on 08/03 for hemoglobin 8.0 and exertional dyspnea. Post transfusion he is feeling much better and is the endoscopy is negative for active bleeding he is stable for discharge home Exam Vital Signs (past 8 hours): - 08/04/19 04:20 08/04/19 07:35 08/04/19 10:57 Temperature 97.8 F 98.1 F 98.5 F Pulse Rate 82 95 H 89 Respiratory Rate 18 20 20 Blood Pressure 99/63 125/64 122/70 Pulse Oximetry 92 95 94 Oxygen Delivery Method Room Air Oxygen Flow Rate 0 Narrative Exam Narrative: General adult male alert oriented no acute distress Abdomen soft nontender nondistended Extremities warm well perfused with bruising Objective Labs Result Diagrams: 08/04/19 05:09 08/04/19 05:09 Labs: Laboratory Results - last 24 hr 08/01/19 08/01/19 08/03/19 15:50 19:45 21:00 WBC RBC Hgb Hct MCV MCH MCHC RDW Plt Count Neut % (Auto) Lymph % (Auto) [place] % (Auto) Eos % (Auto) Baso % (Auto) Neut # (Auto) Lymph # (Auto) [place] # (Auto) Eos # (Auto) Baso # (Auto) Sodium 137 Potassium 3.6 Chloride 102 Carbon Dioxide 31 BUN 17 Creatinine 0.99 Estimated GFR > 60.0 BUN/Creatinine Ratio 17.2 Glucose 120 H Calcium 8.7 Magnesium 2.1 Iron TIBC % Saturation Transferrin COVID-19 PCR Not detected Blood Type A Positive Antibody Screen Negative Crossmatch See Detail 08/04/19 08/04/19 08/04/19 05:09 05:09 05:09 WBC 3.6 L RBC 2.69 L Hgb 8.0 L Hct 24.0 L MCV 89.2 MCH 29.9 MCHC 33.5 RDW 14.9 H Plt Count 177 Neut % (Auto) 78.4 H Lymph % (Auto) 9.8 L [place] % (Auto) 9.3 Eos % (Auto) 1.8 L Baso % (Auto) 0.7 Neut # (Auto) 2800 Lymph # (Auto) 400 L [place] # (Auto) 300 Eos # (Auto) 100 Baso # (Auto) 0 Sodium 138 Potassium 3.8 Chloride 104 Carbon Dioxide 30 BUN 16 Creatinine 1.03 Estimated GFR > 60.0 BUN/Creatinine Ratio 15.5 Glucose 96 Calcium 8.6 Magnesium 2.0 Iron 25 L TIBC 256 L % Saturation 10 L Transferrin 213 COVID-19 PCR Blood Type Antibody Screen Crossmatch Discharge Plan Discharge Plan Patient Disposition: Home Discharge comment: Your being discharged home. Your upper scope demonstrated gastritis or inflammation of your stomach likely caused by aspirin and was the source of your bleeding. Your aspirin dose has been changed to 81 mg daily as there is no increased benefit with 325 mg 3 times daily and there is a higher risk of bleeding and ulcers. You have been prescribed famotidine 20 mg daily to help heal your stomach inflammation. You were prescribed a bowel regimen with Colace 100 mg twice daily and MiraLax 17 g daily to keep your bowel movements soft and regular. Your shortness of breath was likely related to your anemia and you have received 1 unit of blood. Please follow-up with your primary care physician, Dr. Burns, regarding your hospitalization. Discharge orders & Medications Prescriptions: New aspirin 81 mg tablet,delayed release (DR/EC) 81 mg PO DAILY Qty: 30 RF: 0 famotidine [Pepcid] 20 mg tablet 20 mg PO DAILY Qty: 30 RF: 0 polyethylene glycol 3350 17 gram Powder In Packet 17 gm PO DAILY Qty: 30 RF: 0 docusate sodium [DOK] 100 mg Capsule 100 mg PO BID Qty: 60 RF: 0 Continued multivitamin Tablet 1 tab PO DAILY Qty: 0 RF: 0 fluticasone propion-salmeterol [Advair Diskus] 100 MCG/50 MCG blister with device 1 puff Inhalation PRN Qty: 0 RF: 0 terazosin 2 mg capsule 2 mg PO DAILY RF: 0 furosemide 40 mg Tablet 80 mg PO DAILY RF: 0 promethazine-codeine 6.25-10 mg/5 mL Syrup 5 ml PO PRN PRN (Reason: Cough) RF: 0 spironolactone 50 mg Tablet 50 mg PO MOWEFR RF: 0 clobetasol 0.05 % Cream 1 applic Topical DIRECTED RF: 0 oxycodone-acetaminophen 5-325 mg tablet 1 tab PO Q6H PRN (Reason: PAIN) RF: 0 brimonidine 0.2 % drops 1 drp ophthalmic (eye) TID RF: 0 Discontinued aspirin 325 mg Tablet 325 mg PO TID RF: 0 Follow up/Referrals: Jaime Burns MD [Primary Care Provider] - Diet/Activity/Treatments Diet: Regular Visit Report/Discharge Packet Instructions: DI for Colonoscopy, DI for Gastritis, How to Prevent Falls, Stool Softeners, Polyethylene Glycol 3350, Famotidine Visit Report Forms: Patient Portal/API, Stroke Signs & Symptoms Discharge Data Primary Care Provider: Jaime Burns Discharges patient from system. Discharge Date/Time: 08/04/19 15:12 Quality VTE Deep Vein Thrombosis/Pulmonary Embolism Present on Admission: No
--- NOTE | 2019-08-04 12:17 | SUR.PHASEI ---
Frequent coughing since arrival from [facility], spitting clear sputum and saliva. Sitting up, declined albuterol treatment. Ot2 sats upper 90s on 2lnc. Having difficulty obtaining bp due to coughing.
--- NOTE | 2019-08-04 12:27 | SUR.PHASEI ---
report called to Yahaira
--- NOTE | 2019-08-04 13:58 | CM.DPC ---
DCP/continued: Reviewed chart. Patient receiving blood today and is anticipated to d/c home once that completed. Met with patient explained role. Patient reports that he is glad to be going home today. Patient resides with supportive spouse/Kiya in [place]. Patient does not anticipate any d/c planning needs. P: Home today if stable. GENOVEVA Maguire
--- NOTE | 2019-08-04 15:11 | PC.NURSE ---
Day shift: Pt left unit in WC to car driven by family member. Taken by PROFESSOR OF OCEANOGRAPHY. Paperwork signed and all questions answered. Tolerated his 1 unit of blood. Pt has all personal belongings. scrips sent electronic to Pt's pharmacy.
== END 2019-08-04 15:12 | disposition home or self-care (01) | DRG 378 ==
LOC: ED 15:56 → AC 18:36
PROVIDERS: Internal Medicine; Nurse Practitioner Adult Health; Surgery; Admitting Provider Surgery; Emergency Provider Nurse Practitioner Family; PCP Family Medicine; Referring Provider Nurse Practitioner Family; Visit Provider Surgery
PROC: 0DJ08ZZ Inspection of Upper Intestinal Tract, Via Natural or Artificial Opening Endoscopic (ICD-10-PCS; CPT 43235; principal; 2019-08-04 11:00)
PROC: 0DJD8ZZ Inspection of Lower Intestinal Tract, Via Natural or Artificial Opening Endoscopic (ICD-10-PCS; CPT 45378; 2019-08-04 11:00)
DX: K29.61 Other gastritis with bleeding (principal); I44.2 Atrioventricular block, complete; I50.32 Chronic diastolic (congestive) heart failure; D62 Acute posthemorrhagic anemia; J61 Pneumoconiosis due to asbestos and other mineral fibers; I11.0 Hypertensive heart disease with heart failure; E78.5 Hyperlipidemia, unspecified; R01.1 Cardiac murmur, unspecified; Z85.46 Personal history of malignant neoplasm of prostate; Z95.810 Presence of automatic (implantable) cardiac defibrillator
CPT/HCPCS: 36415; 36430; 43235; 45378; 71045; 80048; 80053; 83540; 83550; 83690; 83735; 83880; 85014; 85018; 85025; 85610; 85730; 86850; 86900; 86901; 87635; 93005; 93010; 94640; 96361; 96374; 99232; 99285; G0378; P9016; C9113; J1756; J2704; J3480

== ENCOUNTER → 2020-01-12 12:50 | Outpatient (CLI) | payer MEDICARE, OTHER, SELFPAY ==
[2019-08-01 20:35] VITALS: BMI 28.1
--- NOTE | 2020-01-12 13:00 | DI.CT.S_ITS ---
PROCEDURE: CT CHEST WO CON INDICATIONS: HEMOPTYSIS TECHNIQUE: Noncontrast 5 mm thick sections acquired from the pulmonary apices to the posterior costophrenic angles. 1 mm lung window, 5 mm thick coronal and sagittal and 7 mm axial MIP reformats were then acquired. For radiation dose reduction, the following was used: automated exposure control, adjustment of mA and/or kV according to patient size. COMPARISON: [facility], CT, CT CHEST W CON, 09/25/2017, 10:37. FINDINGS: Image quality: Excellent. Lungs and pleura: Bilateral [id number] loculated pleural effusions, right larger than left with adjacent atelectasis. There are calcified pleural plaques. Scattered scarring is noted. Airway thickening in keeping with nonspecific bronchitis and/or reactive airways disease. Areas of ill-defined nodularity present within the lingula and left upper lobe, for example image 21/4 measuring 0.8 cm . Additional ill-defined nodularity present within the mid right lung measuring 0.8 cm image 23/4. There is also ill-defined spiculated masslike consolidation present within the left lung base on image 212/3. This measures approximately 4.5 x 2.7 cm Mediastinum: Heart size is normal. Coronary artery calcifications are present. . Prominent cardiac valvular calcifications. No pericardial effusion. Numerous calcified mediastinal bilateral hilar lymph nodes, technically age indeterminate Thoracic aorta and central pulmonary arteries are normal in size. Scattered vascular calcifications seen in the aorta. Esophagus is normal in caliber. Trace hiatal hernia. Bones and chest wall: No vertebral body compression fracture. Spondylytic changes and facet arthropathy. No axillary or supraclavicular adenopathy by size criteria. Thyroid gland negative . Incidentally noted layering sub 5 mm gallstones. Gynecomastia incidentally noted. IMPRESSION: Loculated bilateral pleural effusions , which has developed/progressed on the right, with scattered scarring and adjacent atelectasis. Scattered areas of ill-defined nodularity, the most notably noted within the left lung base where there is masslike consolidation. Underlying pulmonary nodule cannot be excluded. 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 Dictated by: Ag Ricardo M.D. on 01/12/2020 at 13:59 Approved by: Ag Ricardo M.D. on 01/12/2020 at 14:25
== END ==
PROVIDERS: PCP Family Medicine; Referring Provider Family Medicine; Visit Provider Family Medicine
DX: R04.2 Hemoptysis (principal); J90 Pleural effusion, not elsewhere classified; J92.9 Pleural plaque without asbestos; J98.11 Atelectasis; K80.20 Calculus of gallbladder without cholecystitis without obstruction; N62 Hypertrophy of breast
CPT/HCPCS: 71250

== ENCOUNTER → 2020-01-20 09:52 | Outpatient (CLI) | payer MEDICARE, OTHER, SELFPAY ==
[2019-08-01 20:35] VITALS: BMI 28.1
--- NOTE | 2020-01-20 09:55 | DI.RAD.S_ITS ---
PROCEDURE: XR CHEST 2V INDICATIONS: COPD TECHNIQUE: 2 views of the chest were acquired. COMPARISON: [facility], CT, CT CHEST WO CON, 01/12/2020, 12:53. [facility], CR, XR CHEST 1V, 08/01/2019, 16:01. FINDINGS: Surgical changes and devices: Right shoulder arthroplasty and pacemaker unchanged. Lungs and pleura: There is marked blunting of the costophrenic angles bilaterally with bibasilar areas of patchy opacity. This is similar versus minimally improved compared to 01/12/2020. Mediastinum: Mediastinal contours are normal. Heart size is normal. Bones and chest wall: No suspicious bony abnormalities. Soft tissues appear unremarkable. IMPRESSION: Persistent appearance of bilateral effusions and bibasilar opacities, questionably minimally improved compared to prior CT on 01/12/2020. Dictated by: Andreina Mcgrath M.D. on 01/20/2020 at 11:32 Approved by: Andreina Mcgrath M.D. on 01/20/2020 at 11:38
--- NOTE | 2020-01-20 09:55 | DI.RAD.S_ITS ---
PROCEDURE: XR LUMBAR SPINE 2-3V INDICATIONS: LOW BACK PAIN TECHNIQUE: 3 views of the lumbar spine were acquired. COMPARISON: [facility], CR, XR LUMBAR SPINE 2-3V, 01/07/2019, 12:13. FINDINGS: Bones: 5 [id number] vertebrae are present. There is grade 1 retrolisthesis of L1 on L2, L2 on L3. Bridging/partially bridging anterior osteophytes are present at multiple levels, most notable at L4-5. Multilevel severe disc space narrowing is present. Severe foraminal narrowing is present L4-5, L5-S1, moderate to severe L2-3, L3-4. Overall appearance is not significantly changed compared to prior exam. No vertebral body compression fractures. No suspicious bony lesions. Soft tissues: Overlying bowel gas pattern is normal. No suspicious soft tissue calcifications. IMPRESSION: Prominent multilevel degenerative changes most severe at L4-5 and L5-S1. Dictated by: Andreina Mcgrath M.D. on 01/20/2020 at 11:38 Approved by: Andreina Mcgrath M.D. on 01/20/2020 at 11:40
== END ==
PROVIDERS: PCP Family Medicine; Referring Provider Family Medicine; Visit Provider Family Medicine
DX: M54.5 Low back pain (principal); J44.9 Chronic obstructive pulmonary disease, unspecified; M47.816 Spondylosis without myelopathy or radiculopathy, lumbar region; M47.817 Spondylosis without myelopathy or radiculopathy, lumbosacral region; Z95.0 Presence of cardiac pacemaker
CPT/HCPCS: 71046; 72100

== ENCOUNTER → 2020-06-30 11:50 | Outpatient (CLI) | payer MEDICARE, OTHER, SELFPAY ==
[2019-08-01 20:35] VITALS: BMI 28.1
--- NOTE | 2020-06-30 11:53 | DI.RAD.S_ITS ---
PROCEDURE: XR CHEST 2V INDICATIONS: CHEST PAIN TECHNIQUE: 2 views of the chest were acquired. COMPARISON: [facility], CR, XR CHEST 1V, 08/01/2019, 16:01. [facility], CR, XR CHEST 2V, 01/20/2020, 9:56. FINDINGS: Surgical changes and devices: Right shoulder arthroplasty. Cardiac pacer. Lungs and pleura: Small bilateral pleural effusions with adjacent atelectasis. There are patchy ill-defined and ground-glass bibasilar opacities without definite interval change. There is mildly increased bilateral upper lobe and right perihilar opacity although subtle. Mediastinum: Mediastinal contours are normal. Heart size is normal. Bones and chest wall: No suspicious bony abnormalities. Soft tissues appear unremarkable. IMPRESSION: Small bilateral pleural effusions and mildly increased diffuse ill-defined and ground-glass bibasilar opacities suggesting pulmonary edema, although recommend clinical correlation to exclude underlying infection. If there is persistent clinical diagnostic uncertainty, continued surveillance with short interval chest radiographs after treatment is recommended. Dictated by: Ag Ricardo M.D. on 06/30/2020 at 13:30 Approved by: Ag Ricardo M.D. on 06/30/2020 at 13:32
== END ==
PROVIDERS: PCP Family Medicine; Referring Provider Family Medicine; Visit Provider Family Medicine
DX: J90 Pleural effusion, not elsewhere classified (principal); R91.8 Other nonspecific abnormal finding of lung field; R07.9 Chest pain, unspecified
CPT/HCPCS: 71046

== ENCOUNTER → 2020-07-19 09:01 | Outpatient (CLI) | payer MEDICARE, OTHER, SELFPAY ==
[2019-08-01 20:35] VITALS: BMI 28.1
--- NOTE | 2020-07-19 09:07 | DI.RAD.S_ITS ---
PROCEDURE: XR CHEST 2V INDICATIONS: cant breathe TECHNIQUE: 2 views of the chest were acquired. COMPARISON: [facility], CR, XR CHEST 2V, 06/30/2020, 11:53. FINDINGS: Surgical changes and devices: Left-sided dual lead pacemaker. Right shoulder replacement. Lungs and pleura: Moderate size right pleural effusion, stable to slightly increased compared to the prior study. Small left effusion, stable. Bibasilar alveolar opacities are relatively unchanged. Interstitium is diffusely thickened.. Mediastinum: Mediastinal contours are stable. Cephalization of central vasculature, similar compared to prior. Heart size is stable. Bones and chest wall: No suspicious bony abnormalities. Soft tissues appear unremarkable. IMPRESSION: 1. Findings most suggestive CHF, interstitial, and bibasilar pulmonary edema. Underlying infectious process cannot be excluded. 2. Only slight progression of right pleural effusion compared to the prior study. Dictated by: Kimi Ross M.D. on 07/19/2020 at 9:13 Approved by: Kimi Ross M.D. on 07/19/2020 at 9:17
== END ==
PROVIDERS: PCP Family Medicine; Referring Provider Family Medicine; Visit Provider Family Medicine
DX: J90 Pleural effusion, not elsewhere classified (principal)
CPT/HCPCS: 71046

== ENCOUNTER 2020-10-05 22:49 | Emergency (ER) | payer MEDICARE, OTHER, SELFPAY ==
[2019-08-01 20:35] VITALS: BMI 28.1
[2020-10-05] VITALS (10 sets, daily range): BP systolic 65–104; BP diastolic 38–55; PULSE 79–95; RESP 25–41; O2SAT 93–97
--- NOTE | 2020-10-05 22:55 | ED_ITS ---
HPI - Syncope General Chief Complaint: Syncope Stated Complaint: Syncope Time Seen by Provider: 10/05/20 22:50 Source: patient and EMS Mode of arrival: EMS Limitations: no limitations History of Present Illness HPI narrative: 80-year-old male nonsmoker with history of upper GI bleeding, pleural effusions, AICD, asbestos pleurisy presents by EMS for evaluation of a syncopal episode just prior to arrival. 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 He states that he was on the toilet, constipated and pushing rather hard to have a bowel movement, was eventually mildly successful and then was pulling his ?drawers up ?in took a few steps and got dizzy, lightheaded and fell to the ground. He denies any injury as a consequence of the fall such as head, neck or back pain. He takes no blood thinners. He denies any nausea or vomiting. He has had no fever or chills. MD complaint: loss of consciousness and felt faint Onset (ago): hour(s) Prodromal symptoms: lightheaded Witnessed: no Context: standing up Injuries sustained associated with event: none Current symptoms: none Related Data Home Medications Medication Instructions Recorded Confirmed multivitamin 1 tab PO DAILY #0 04/13/11 08/04/19 fluticasone propion-salmeterol 1 puff INHALATION PRN #0 01/17/12 08/04/19 [Advair Diskus] clobetasol 1 applic TOPICAL DIRECTED 08/14/17 09/19/18 furosemide 80 mg PO DAILY 08/14/17 08/04/19 promethazine-codeine 5 ml PO PRN PRN 08/14/17 03/25/19 spironolactone 50 mg PO MOWEFR 08/14/17 08/04/19 terazosin 2 mg PO DAILY 03/25/18 08/04/19 brimonidine 1 drp OPHTHALMIC (EYE) TID 03/25/19 03/25/19 oxycodone-acetaminophen 1 tab PO Q6H PRN 03/25/19 08/04/19 Previous Rx's Medication Instructions Recorded aspirin 81 mg PO DAILY #30 tab 08/04/19 docusate sodium [DOK] 100 mg PO BID #60 cap 08/04/19 polyethylene glycol 3350 17 gm PO DAILY #30 ea 08/04/19 famotidine 20 mg tablet 20 mg PO DAILY #90 tab 08/18/19 Allergies Allergy/AdvReac Type Severity Reaction Status Date / Time No Known Drug Allergies Allergy Verified 08/01/19 16:02 Review of Systems Constitutional Constitutional: Denies chills, Denies fatigue, Denies fever(s), Denies frequent falls, Denies lethargy and Denies weakness Eyes Eyes: Denies change in vision, Denies eye discharge, Denies irritation and Denies loss of vision ENT Ears, Nose, Mouth, and Throat: Denies change in voice, Denies dizziness, Denies neck pain, Denies sore throat and Denies throat swelling Cardiovascular Cardiovascular: Denies chest pain, Reports syncope, Denies irregular heart r hythm, Denies lightheadedness, Denies palpitations, Denies dyspnea, Denies dyspnea on exertion and Denies orthopnea Respiratory Respiratory: Denies cough, Denies dyspnea, Denies dyspnea on exertion and Denies wheezing Gastrointestinal Gastrointestinal: Denies abdominal pain, Reports bloating, Denies change in bow el habits, Reports constipation, Denies diarrhea, Denies nausea and Denies vomiting Musculoskeletal Musculoskeletal: Denies neck pain and Denies numbness Integumentary/Breasts Skin/Breast: Denies pruritus, Denies erythema, Denies rash and Denies wounds Neurologic Neurologic: Denies behavioral changes, Denies confusion, Denies dizziness, Reports syncope, Denies frequent falls, Denies loss of vision, Denies numbness and Denies weakness Psychiatric Psychiatric: Denies anxiety, Denies behavioral changes, Denies confusion, Denies depression, Denies homicidal ideation and Denies suicidal ideation Endocrine Endocrine: Denies fatigue, Denies flushing and Denies palpitations Hematologic/Lymphatic Hematologic/Lymphatic: Denies easy bruising Allergic/Immunologic Allergic/Immunologic: Denies urticaria, Denies throat swelling and Denies wheezing Patient History Medical History Asbestos pleurisy Blindness of right eye Colon polyps Complete heart block GI bleed History of retinal hemorrhage HLD (hyperlipidemia) HTN (hypertension) Prostate CA Surgical History AICD (automatic cardioverter/defibrillator) present H/O prostatectomy History of shoulder surgery History of total bilateral knee replacement Social History household members: spouse and children Smoking Status: Never smoker alcohol intake: former Smoking Status: Never smoker alcohol intake frequency: 0-2 drinks per day Substance Use Type: does not use Exam Narrative Exam Narrative: GENERAL: [80] year old patient appears stated age. Well- developed patient, in mild distress. HEAD: Atraumatic. Normocephalic. EYES: Pupils equal round and reactive. Extraocular motions intact. No scleral i cterus. No injection or drainage. ENT: Dry mucous membranes Nose without bleeding, purulent drainage. Throat without erythema, tonsillar hypertrophy or exudate. Airway patent. NECK: Trachea midline. Non tender CARDIOVASCULAR: Regular rate and rhythm without murmurs, gallops, or rubs. RESPIRATORY: Clear to auscultation. Breath sounds equal bilaterally. No wheezes, rales, or rhonchi. GASTROINTESTINAL: Abdomen soft, non-tender, mild distension, no pain. EXTREMITIES: No edema or joint tenderness. BACK: Nontender without deformity or crepitance. No flank tenderness. NEURO: AOx3. SKIN: Poor skin turgor No rash or erythema of visible areas Initial Vital Signs Initial Vital Signs: Vital Signs Pulse Rate 95 H 10/05/20 23:00 Respiratory Rate 31 H 10/05/20 23:00 Pulse Oximetry 96 10/05/20 23:00 Course Orders Ordered: ED Orders 10/05/20 22:53 XR acute abdomen series Stat 10/05/20 22:54 EKG-12 Lead Stat 10/05/20 23:15 Complete Blood Count AUTO DIFF Stat Comprehensive Metabolic Panel Stat NT-proBNP (BNP-Adult 18+) Stat Troponin & CK Cardiac Panel Stat 10/05/20 23:30 Type and Screen Stat 10/05/20 23:44 COVID19 - ADMIT (FOREST [employer]GER swab/PCR) Stat 10/06/20 00:14 Packed Cells Stat 10/06/20 00:19 Hemoglobin and Hematocrit Stat Sodium Chloride (Normal Saline 0.9%) 1,000 mls @ 150 mls/hr IV CONT ASHELY Last Admin: 10/06/20 00:26 Dose: 150 mls/hr Documented by: JUANA Discontinued Medications Octreotide Acetate (Octreotide 100 Mcg/Ml Vial) 50 mcg IV NOW ONE Stop: 10/06/20 00:14 Last Admin: 10/06/20 00:26 Dose: 50 mcg Documented by: JUANA Pantoprazole Sodium (Pantoprazole 40 Mg Vial) 40 mg IV NOW ONE Stop: 10/05/20 23:48 Last Admin: 10/06/20 00:26 Dose: 40 mg Documented by: JUANA Pantoprazole Sodium (Pantoprazole 40 Mg Vial) 40 mg IV NOW ONE Stop: 10/06/20 01:52 Last Admin: 10/06/20 01:54 Dose: 40 mg Documented by: JUANA Reevaluation(s) Reevaluation #1: called to see patient at bedside with spontaneous passage of large amount of loose, very foul smelling melenic stool Reevaluation #2: pressures continue to sit right around 100. patient continues to pass foul smelling dark loose stool. Consultations Consultation #1: call to Dr. Guerrero to discuss case. She has reviewed labs, including visit note from hospitalization for GI bleed about a year ago. Upper and Lower endoscopy was largely unremarkable and no obvious source of bleeding was noted. He was using aspirin at the time. She agrees with transfusion, protonix, octreotide, but recommends transfer given unsuccessful search last time and likely need for angio, bleeding scan, push enteroscopy or other Consultation #2: call to [facility]. No beds call to [facility], beds available [phone] Hospitalist (Dr. Max) paged. Happy to accept. Requests Protonix drip, we do not have it available, will increase to 80mg Vital Signs Vital signs: Vital Signs - 8 hr 10/05/20 23:00 10/05/20 23:01 10/05/20 23:19 Temperature Pulse Rate 95 H 83 86 Respiratory Rate 31 H 38 H 34 H Blood Pressure 65/38 L 78/51 L Pulse Oximetry 96 93 95 10/05/20 23:30 10/05/20 23:31 10/05/20 23:35 Temperature Pulse Rate 83 84 80 Respiratory Rate 35 H 34 H 26 H Blood Pressure 80/51 L 104/55 L Pulse Oximetry 96 96 96 10/05/20 23:40 10/05/20 23:45 10/05/20 23:50 Temperature Pulse Rate 82 84 80 Respiratory Rate 33 H 41 H 25 H Blood Pressure 102/55 L 103/55 L 87/50 L Pulse Oximetry 97 97 97 10/05/20 23:55 10/06/20 00:00 10/06/20 00:05 Temperature Pulse Rate 79 81 81 Respiratory Rate 26 H 40 H 28 H Blood Pressure 97/53 L 93/57 L 92/54 L Pulse Oximetry 96 96 97 10/06/20 00:10 10/06/20 00:15 10/06/20 00:20 Temperature Pulse Rate 82 81 81 Respiratory Rate 20 27 H 25 H Blood Pressure 100/58 L 95/51 L 84/51 L Pulse Oximetry 96 97 94 10/06/20 00:25 10/06/20 00:30 10/06/20 00:35 Temperature Pulse Rate 80 82 88 Respiratory Rate 31 H 27 H 34 H Blood Pressure 82/49 L 81/51 L 128/68 Pulse Oximetry 95 96 87 L 10/06/20 00:41 10/06/20 00:45 10/06/20 00:50 Temperature 97.7 F Pulse Rate 85 82 85 Respiratory Rate 22 21 27 H Blood Pressure 116/57 L 108/58 L 96/53 L Pulse Oximetry 90 L 10/06/20 00:55 10/06/20 01:00 10/06/20 01:02 Temperature 97.9 F 97.9 F Pulse Rate 87 87 78 Respiratory Rate 23 25 H 12 Blood Pressure 82/47 L 98/57 L 99/58 L Pulse Oximetry 90 L 99 10/06/20 01:05 10/06/20 01:15 10/06/20 01:30 Temperature Pulse Rate 89 84 82 Respiratory Rate 30 H 20 16 Blood Pressure 100/57 L 103/58 L 100/56 L Pulse Oximetry 99 99 100 MDM - Syncope Lab Data Result diagrams: 10/06/20 00:19 10/05/20 23:15 Labs: Lab Results 10/05/20 10/05/20 10/05/20 Range/Units 23:15 23:15 23:15 WBC 10.2 (4.5-11.0) X10^3/uL RBC 3.54 L (4.5-5.9) X10^6/uL Hgb 10.2 L (13.5-17.5) g/dL Hct 31.3 L (41-53) % MCV 88.6 (80-100) fL MCH 28.7 (26-34) PG MCHC 32.4 (30-36) % RDW 16.2 H (11.6-14.8) % Plt Count 236 (150-400) X10^3/uL Neut % (Auto) 84.2 H (50-75) % Lymph % (Auto) 7.6 L (25-40) % [place] % (Auto) 6.6 (3-14) % Eos % (Auto) 1.4 L (2-4) % Baso % (Auto) 0.2 (0-2) % Neut # (Auto) 8600 H (0388-7187) /uL Lymph # (Auto) 800 L (5098-3241) /uL [place] # (Auto) 700 (0-900) /uL Eos # (Auto) 100 (0-450) /uL Baso # (Auto) 0 (0-100) /uL Sodium 134 L (137-145) mmol/L Potassium 4.0 (3.4-5.1) mmol/L Chloride 97 L (98-107) mmol/L Carbon Dioxide 30 (22-32) mmol/L BUN 30 H (9-20) mg/dL Creatinine 1.24 (0.66-1.25) mg/dL Estimated GFR 55.8 L (>60) mL/min BUN/Creatinine Ratio 24.2 H (6-22) Glucose 131 H (80-110) mg/dL Calcium 8.3 L (8.4-10.2) mg/dL Total Bilirubin 0.2 (0.2-1.3) mg/dL AST 21 (17-59) IU/L ALT 11 (<50) IU/L Alkaline Phosphatase 77 (38-126) U/L Total Creatine Kinase 54 L (55-170) U/L CK-MB (CK-2) TNP CK-MB (CK-2) Rel Index TNP Troponin I 0.013 (0.01-0.034) ng/mL NT-Pro-B Natriuret Pep 765 H (<450) pg/mL Total Protein 6.3 (6.3-8.2) g/dL Albumin 3.1 L (3.5-5.0) g/dL Globulin 3.2 (1.7-4.1) g/dL Albumin/Globulin Ratio 1.0 (1.0-2.8) Blood Type Antibody Screen Crossmatch 10/05/20 10/06/20 Range/Units 23:30 00:19 WBC (4.5-11.0) X10^3/uL RBC (4.5-5.9) X10^6/uL Hgb 8.9 L (13.5-17.5) g/dL Hct 27.3 L (41-53) % MCV (80-100) fL MCH (26-34) PG MCHC (30-36) % RDW (11.6-14.8) % Plt Count (150-400) X10^3/uL Neut % (Auto) (50-75) % Lymph % (Auto) (25-40) % [place] % (Auto) (3-14) % Eos % (Auto) (2-4) % Baso % (Auto) (0-2) % Neut # (Auto) (9290-6998) /uL Lymph # (Auto) (4537-2769) /uL [place] # (Auto) (0-900) /uL Eos # (Auto) (0-450) /uL Baso # (Auto) (0-100) /uL Sodium (137-145) mmol/L Potassium (3.4-5.1) mmol/L Chloride (98-107) mmol/L Carbon Dioxide (22-32) mmol/L BUN (9-20) mg/dL Creatinine (0.66-1.25) mg/dL Estimated GFR (>60) mL/min BUN/Creatinine Ratio (6-22) Glucose (80-110) mg/dL Calcium (8.4-10.2) mg/dL Total Bilirubin (0.2-1.3) mg/dL AST (17-59) IU/L ALT (<50) IU/L Alkaline Phosphatase (38-126) U/L Total Creatine Kinase (55-170) U/L CK-MB (CK-2) CK-MB (CK-2) Rel Index Troponin I (0.01-0.034) ng/mL NT-Pro-B Natriuret Pep (<450) pg/mL Total Protein (6.3-8.2) g/dL Albumin (3.5-5.0) g/dL Globulin (1.7-4.1) g/dL Albumin/Globulin Ratio (1.0-2.8) Blood Type A Positive Antibody Screen Negative Crossmatch See Detail Critical Care Time Critical Care Time Critical Care Time: Yes Total Critical Care Time: 30 Attestation: The high probability of a clinically significant, sudden or life threatening deterioration of the [CV/GI] system(s) required my full and direct attention, intervention and personal management. The aggregate critical care time was [30] minutes. This time is in addition to time spent performing reported procedures but includes the following: [x] Data Review and interpretation [x] Patient assessment and monitoring of vital signs [x] Documentation [x] Medication orders and management Discharge Plan Departure Patient Disposition: [facility] Clinical Impression: Acute upper gastrointestinal bleeding Prescriptions: No Action multivitamin Tablet 1 tab PO DAILY Qty: 0 RF: 0 fluticasone propion-salmeterol [Advair Diskus] 100 MCG/50 MCG blister with device 1 puff Inhalation PRN Qty: 0 RF: 0 famotidine 20 mg tablet 20 mg PO DAILY Qty: 90 RF: 0 terazosin 2 mg capsule 2 mg PO DAILY RF: 0 aspirin 81 mg tablet,delayed release (DR/EC) 81 mg PO DAILY Qty: 30 RF: 0 polyethylene glycol 3350 17 gram Powder In Packet 17 gm PO DAILY Qty: 30 RF: 0 docusate sodium [DOK] 100 mg Capsule 100 mg PO BID Qty: 60 RF: 0 furosemide 40 mg Tablet 80 mg PO DAILY RF: 0 promethazine-codeine 6.25-10 mg/5 mL Syrup 5 ml PO PRN PRN (Reason: Cough) RF: 0 spironolactone 50 mg Tablet 50 mg PO MOWEFR RF: 0 clobetasol 0.05 % Cream 1 applic Topical DIRECTED RF: 0 oxycodone-acetaminophen 5-325 mg tablet 1 tab PO Q6H PRN (Reason: PAIN) RF: 0 brimonidine 0.2 % drops 1 drp ophthalmic (eye) TID RF: 0 Referrals: Jaime Burns MD [Primary Care Provider] -
[2020-10-05 23:27] LABS: Add Manual Diff / Slide Review NO; Basophils Absolute Auto 0 /uL (0-100); Basophils Percent Auto 0.2 % (0-2); Eosinophils Absolute Auto 100 /uL (0-450); Eosinophils Percent Auto 1.4 % (2-4); Hematocrit 31.3 % (41-53); Hemoglobin 10.2 g/dL (13.5-17.5); Lymphocytes Absolute Auto 800 /uL (1100-4500); Lymphocytes Percent Auto 7.6 % (25-40); Mean Corpuscular HGB Conc 32.4 % (30-36); Mean Corpuscular Hemoglobin 28.7 PG (26-34); Mean Corpuscular Volume 88.6 fL (80-100); Monocytes Absolute Auto 700 /uL (0-900); Monocytes Percent Auto 6.6 % (3-14); Neutrophils Absolute Auto 8600 /uL (1500-7000); Neutrophils Percent Auto 84.2 % (50-75); Platelet Count 236 X10^3/uL (150-400); Red Blood Cell Count 3.54 X10^6/uL (4.5-5.9); Red Cell Distribution Width 16.2 % (11.6-14.8); White Blood Cell Count 10.2 X10^3/uL (4.5-11.0)
[2020-10-05 23:34] LABS: Alanine Aminotransferase 11 IU/L (<50); Albumin 3.1 g/dL (3.5-5.0); Alkaline Phosphatase 77 U/L (38-126); Aspartate Aminotransferase 21 IU/L (17-59); BUN Creatinine Ratio 24.2 (6-22); Bilirubin Total 0.2 mg/dL (0.2-1.3); Blood Urea Nitrogen 30 mg/dL (9-20); Calcium 8.3 mg/dL (8.4-10.2); Carbon Dioxide 30 mmol/L (22-32); Chloride 97 mmol/L (98-107); Creatine Kinase 54 U/L (55-170); Estimated Glomerular Filt Rate 55.8 mL/min (>60); Globulin 3.2 g/dL (1.7-4.1); Glucose 131 mg/dL (80-110); HEMOLYSIS < 15 (0-50); Sodium 134 mmol/L (137-145); Total Protein 6.3 g/dL (6.3-8.2)
[2020-10-05 23:43] LABS: NT-proBNP (BNP-Adult 18+) 765 pg/mL (<450)
[2020-10-05 23:45] LABS: Troponin I 0.013 ng/mL (0.01-0.034)
[2020-10-06] VITALS (29 sets, daily range): BP systolic 81–128; BP diastolic 47–68; PULSE 77–90; RESP 12–40; TEMP 36.5–36.6; O2SAT 87–100
[2020-10-06 00:24] LABS: Hematocrit 27.3 % (41-53); Hemoglobin 8.9 g/dL (13.5-17.5)
[2020-10-06] MEDS: OCTREOTIDE 100 MCG/ML VIAL 50 MCG IV (00:26)
[2020-10-06] MEDS: SODIUM CHLORIDE 0.9% 1,000 ML 150 ML IV (00:26)
[2020-10-06] MEDS: PANTOPRAZOLE 40 MG VIAL IV ×2 (00:26→01:54)
[2020-10-06] MEDS: ONDANSETRON 4 MG/2 ML INJ (01:15)
[2020-10-06 02:36] LABS: Hemoglobin 9.5 g/dL (13.5-17.5)
[2020-10-06 02:37] LABS: Hematocrit 29.1 % (41-53)
[2020-10-06 03:40] LABS: COVID19 - ADMIT (NP swab/PCR) Negative (Negative)
--- NOTE | 2020-10-14 02:38 | PC.NURSE ---
Late Entry: NS was discontinues at 0400.
== END 2020-10-06 04:03 | disposition short-term general hospital (02) ==
PROVIDERS: Emergency Provider Emergency Medicine; PCP Family Medicine
DX: K92.2 Gastrointestinal hemorrhage, unspecified (principal); R07.9 Chest pain, unspecified; Z20.822 Contact with and (suspected) exposure to COVID-19
CPT/HCPCS: 36415; 36430; 80053; 82272; 82550; 83880; 84484; 85014; 85018; 85025; 86850; 86900; 86901; 87635; 93005; 93010; 96361; 96374; 96375; 96376; 99285; C9803; P9016; C9113; J2354; J2405

== ENCOUNTER 2020-10-27 00:28 | Inpatient (IN) | payer MEDICARE, OTHER, SELFPAY ==
[2019-08-01 20:35] VITALS: BMI 28.1
[2020-10-27] VITALS (17 sets, daily range): BP systolic 99–149; BP diastolic 55–84; PULSE 76–101; RESP 14–26; TEMP 35.8–36.9; O2SAT 97–100; BMI 28.1
--- NOTE | 2020-10-27 | DI.RAD.S_ITS ---
PROCEDURE: XR CHEST 1V INDICATIONS: POST THORACENTESIS TECHNIQUE: One view of the chest was acquired. COMPARISON: [facility], CT, CT CHEST WO CON, 01/12/2020, 12:53. [facility], CT, CT ANGIO CHEST PE PROTOCOL, 10/27/2020, 3:05. [facility], CR, XR CHEST 1V, 10/27/2020, 0:49. FINDINGS: Surgical changes and devices: Right shoulder arthroplasty, pacemaker Lungs and pleura: Decrease in size of right pleural effusion. No pneumothorax. Unchanged bilateral pulmonary parenchymal densities. Loculated left apical fluid, as is seen on the CT. Mediastinum: Mediastinal contours appear normal. Heart size is normal. Bones and chest wall: No suspicious bony lesions. Overlying soft tissues appear unremarkable. IMPRESSION: 1. Interval decrease in size of a right pleural effusion with no evidence of pneumothorax. 2. Chronic loculated left apical pleural fluid. 3. Bilateral pulmonary densities are consistent with atelectasis and consolidation. Dictated by: Wilder Estrada M.D. on 10/27/2020 at 10:13 Approved by: Wilder Estrada M.D. on 10/27/2020 at 10:17
--- NOTE | 2020-10-27 00:47 | DI.RAD.S_ITS ---
PROCEDURE: XR CHEST 1V INDICATIONS: Shortness of breath, fatigue TECHNIQUE: One view of the chest was acquired. COMPARISON: [facility], CR, XR CHEST 2V, 07/19/2020, 9:05. FINDINGS: Surgical changes and devices: Left -sided cardiac pacer device is in place. Lungs and pleura: No pneumothorax seen. Interval increase in size of right pleural effusion. Diffuse interstitial prominence. Multifocal patchy ill-defined consolidations of the bilateral mid and lower lung zones more pronounced on the left. This appears more conspicuous compared to the prior study. Small left pleural effusion. Mediastinum: Mediastinal contours appear stable. Heart size is enlarged. Bones and chest wall: No suspicious bony lesions. Overlying soft tissues appear unremarkable. IMPRESSION: Cardiomegaly with interval increase in right pleural effusion, diffuse interstitial prominence and patchy mid and lower lung zone opacities. Findings may represent worsening pulmonary edema although concurrent infectious/inflammatory process not excluded if clinically appropriate. No significant discrepancy with the overnight stocker radiology preliminary report. Dictated by: Juan Che M.D. on 10/27/2020 at 7:25 Approved by: Juan Che M.D. on 10/27/2020 at 7:27
[2020-10-27] MEDS: methylPREDNISolone 125 MG/2 ML VIAL IV (01:02)
[2020-10-27 01:25] LABS: INR 1.2 (0.9-1.3); Prothrombin Time 12.9 SECONDS (10.1-12.7)
[2020-10-27 01:26] LABS: COVID19 -Nasal RAPID Negative (Negative)
[2020-10-27 01:28] LABS: Creatine Kinase 31 U/L (55-170)
[2020-10-27 01:29] LABS: Alanine Aminotransferase 14 IU/L (<50); Albumin 3.7 g/dL (3.5-5.0); Alkaline Phosphatase 89 U/L (38-126); Aspartate Aminotransferase 22 IU/L (17-59); BUN Creatinine Ratio 21.1 (6-22); Bilirubin Total 0.3 mg/dL (0.2-1.3); Blood Urea Nitrogen 26 mg/dL (9-20); Calcium 9.2 mg/dL (8.4-10.2); Chloride 90 mmol/L (98-107); Estimated Glomerular Filt Rate 56.3 mL/min (>60); Globulin 3.6 g/dL (1.7-4.1); Glucose 116 mg/dL (80-110); HEMOLYSIS < 15 (0-50); Lactate (Lactic Acid) 1.4 mmol/L (0.7-2.1); Potassium 3.9 mmol/L (3.4-5.1); Sodium 138 mmol/L (137-145); Total Protein 7.3 g/dL (6.3-8.2)
[2020-10-27 01:34] LABS: D Dimer 2929 ng/mL (<230)
[2020-10-27 01:41] LABS: Carbon Dioxide 40 mmol/L (22-32)
[2020-10-27 01:42] LABS: Add Manual Diff / Slide Review NO; Basophils Absolute Auto 0 /uL (0-100); Basophils Percent Auto 0.4 % (0-2); Eosinophils Absolute Auto 200 /uL (0-450); Eosinophils Percent Auto 2.3 % (2-4); Lymphocytes Absolute Auto 200 /uL (1100-4500); Lymphocytes Percent Auto 3.6 % (25-40); Mean Corpuscular HGB Conc 30.8 % (30-36); Mean Corpuscular Hemoglobin 26.5 PG (26-34); Mean Corpuscular Volume 85.9 fL (80-100); Monocytes Absolute Auto 500 /uL (0-900); Monocytes Percent Auto 7.9 % (3-14); NT-proBNP (BNP-Adult 18+) 2890 pg/mL (<450); Neutrophils Absolute Auto 5700 /uL (1500-7000); Neutrophils Percent Auto 85.8 % (50-75); Platelet Count 298 X10^3/uL (150-400); Red Blood Cell Count 3.38 X10^6/uL (4.5-5.9); Red Cell Distribution Width 17.7 % (11.6-14.8); Troponin I 0.016 ng/mL (0.01-0.034); White Blood Cell Count 6.6 X10^3/uL (4.5-11.0)
[2020-10-27 01:46] LABS: Procalcitonin 0.06 ng/mL (<0.5)
--- NOTE | 2020-10-27 01:55 | ED.SOB ---
HPI - SOB/Dyspnea General Chief Complaint: Shortness of Breath/Dyspnea Stated Complaint: difficulty breathing for two days Time Seen by Provider: 10/27/20 00:35 Source: patient and family Mode of arrival: Wheelchair Limitations: no limitations History of Present Illness HPI Narrative: 80-year-old male former smoker with history of hypertension, asbestosis, pacemaker and ICD for complete heart block, history of prostate cancer, coronary artery disease, GI bleed and former pleural effusion presents with family friend and a chief complaint of increasing work of breathing and shortness of breath the past 2 days. He is not dizzy or lightheaded but has become generally weak. He admits to an ongoing dry and hacking cough. He has had no fever or chills. His shortness of breath is worse with exertion and lying flat seems to improve with rest. He denies any significant chest pain, nausea, vomiting or diarrhea. He was recently seen by myself and was quite ill with large, upper GI bleed resulting in the need for transfer, his evaluation including both upper and lower scope notes active diverticular bleeding which required right colic artery coil embolization with Interventional Radiology. He required multiple units of red cell transfusion. He developed increasing shortness of breath which required supplemental oxygen and imaging noted bilateral pleural effusions. This was thought to be due to large volume overload, he did require thoracentesis Related Data Home Medications Medication Instructions Recorded Confirmed multivitamin 1 tab PO DAILY #0 04/13/11 08/04/19 fluticasone 100 mcg-salmeterol 50 1 puff INHALATION PRN #0 01/17/12 08/04/19 mcg/dose blistr powdr for inhalation (Advair Diskus) clobetasol 0.05 % topical cream 1 applic TOPICAL DIRECTED 08/14/17 09/19/18 furosemide 40 mg tablet 80 mg PO DAILY 08/14/17 08/04/19 promethazine 6.25 mg-codeine 10 5 ml PO PRN PRN 08/14/17 03/25/19 mg/5 mL syrup spironolactone 50 mg tablet 50 mg PO MOWEFR 08/14/17 08/04/19 terazosin 2 mg capsule 2 mg PO DAILY 03/25/18 08/04/19 brimonidine 0.2 % eye drops 1 drp OPHTHALMIC (EYE) TID 03/25/19 03/25/19 oxycodone-acetaminophen 5 mg-325 1 tab PO Q6H PRN 03/25/19 08/04/19 mg tablet Previous Rx's Medication Instructions Recorded aspirin 81 mg tablet,delayed 81 mg PO DAILY #30 tab 08/04/19 release docusate sodium 100 mg capsule 100 mg PO BID #60 cap 08/04/19 (DOK) polyethylene glycol 3350 17 gram 17 gm PO DAILY #30 ea 08/04/19 oral powder packet famotidine 20 mg tablet 20 mg PO DAILY #90 tab 08/18/19 Allergies Allergy/AdvReac Type Severity Reaction Status Date / Time No Known Drug Allergies Allergy Verified 08/01/19 16:02 Review of Systems Review of Systems Narrative: GENERAL: See HPI HEENT: Denies sinus pain, ear pain, sore throat, difficulty swallowing, dizziness. RESPIRATORY: See HPI CARDIOVASCULAR: Denies chest pain, palpitations, orthopnea, edema, GASTROINTESTINAL: Denies nausea, vomiting, abdominal pain, diarrhea, constipation, melena. : Denies dysuria, frequency, incontinence, hematuria, urinary retention. MUSCULOSKELETAL: denies weakness, joint pain, or bony pain SKIN: Denies rash, skin lesions, or other NEUROLOGIC: Denies weakness, headache, numbness, change in speech, confusion, seizures, incoordination. PSYCHIATRIC: No concerning psychosocial issues. 12 point review of systems is negative except for those stated above Patient History Medical History Asbestos pleurisy Blindness of right eye Colon polyps Complete heart block GI bleed History of retinal hemorrhage HLD (hyperlipidemia) HTN (hypertension) Prostate CA Surgical History AICD (automatic cardioverter/defibrillator) present H/O prostatectomy History of shoulder surgery History of total bilateral knee replacement Social History household members: spouse and children Smoking Status: Never smoker alcohol intake: former Smoking Status: Never smoker alcohol intake frequency: 0-2 drinks per day Substance Use Type: does not use Exam Narrative Exam Narrative: GENERAL: [80] year old patient appears older than stated age. Chronically ill and in acute distress with increased work of breathing with minimal exertion including use of accessory muscles and oxygen at 5 L HEAD: Atraumatic. Normocephalic. EYES: Pupils equal round and reactive. Extraocular motions intact. No scleral icterus. No injection or drainage. ENT: Poor dentition throughout, moist mucous membranes Nose without bleeding, purulent drainage. Throat without erythema, tonsillar hypertrophy or exudate. Airway patent. NECK: Trachea midline. Non tender CARDIOVASCULAR: Regular rate and rhythm without murmurs, gallops, or rubs. RESPIRATORY: Decreased breath sounds bilaterally with prolonged expiratory phase, increased work of breathing, tachypnea, occasional dry cough. GASTROINTESTINAL: Abdomen soft, non-tender, nondistended. EXTREMITIES: 2+ pitting edema bilateral lower extremities. BACK: Nontender without deformity or crepitance. No flank tenderness. NEURO: AOx3. SKIN: No rash or erythema of visible areas Initial Vital Signs Initial Vital Signs: Vital Signs Temperature 98.4 F 10/27/20 00:37 Pulse Rate 90 10/27/20 00:37 Respiratory Rate 26 H 10/27/20 00:37 Blood Pressure 149/76 H 10/27/20 00:37 Pulse Oximetry 100 10/27/20 00:37 Course Orders Ordered: ED Orders 10/27/20 00:46 Consult to Respiratory Therapy Evaluate & Treat EKG-12 Lead Stat 10/27/20 00:47 XR chest 1V Stat 10/27/20 01:00 COVID19 -Nasal swab/Pre-Proc Stat Complete Blood Count AUTO DIFF Stat Comprehensive Metabolic Panel Stat D Dimer Stat Lactate (Lactic Acid) Stat Magnesium Stat NT-proBNP (BNP-Adult 18+) Stat Procalcitonin Stat Prothrombin Time INR Stat Troponin & CK Cardiac Panel Stat 10/27/20 01:41 Arterial Blood Gas Stat 10/27/20 01:43 Blood Culture Stat 10/27/20 02:56 CT angio chest PE protocol Stat Discontinued Medications Furosemide (Furosemide 40 Mg/4 Ml Vial) 40 mg IV NOW ONE Stop: 10/27/20 04:22 Last Admin: 10/27/20 04:39 Dose: 40 mg Documented by: Piperacillin Sod/Tazobactam (Sod 4.5 gm/ Sodium Chloride) 100 mls @ 200 mls/hr IV NOW ONE Stop: 10/27/20 04:38 Last Admin: 10/27/20 04:41 Dose: 200 mls/hr Documented by: Methylprednisolone (Methylprednisolone 125 Mg/2 Ml Vial) 125 mg IV NOW ONE Stop: 10/27/20 00:47 Last Admin: 10/27/20 01:02 Dose: 125 mg Documented by: ANGI Vital Signs Vital signs: Vital Signs - 8 hr 10/27/20 00:37 10/27/20 01:09 10/27/20 01:10 Temperature 98.4 F Pulse Rate 90 90 90 Respiratory Rate 26 H 24 26 H Blood Pressure 149/76 H Pulse Oximetry 100 100 100 MDM - SOB/Dyspnea Lab Data Result diagrams: 10/27/20 01:00 10/27/20 01:00 Labs: Lab Results 10/27/20 10/27/20 10/27/20 Range/Units 01:00 01:00 01:00 WBC 6.6 (4.5-11.0) X10^3/uL RBC 3.38 L (4.5-5.9) X10^6/uL Hgb 9.0 L (13.5-17.5) g/dL Hct 29.0 L (41-53) % MCV 85.9 (80-100) fL MCH 26.5 (26-34) PG MCHC 30.8 (30-36) % RDW 17.7 H (11.6-14.8) % Plt Count 298 (150-400) X10^3/uL Neut % (Auto) 85.8 H (50-75) % Lymph % (Auto) 3.6 L (25-40) % [place] % (Auto) 7.9 (3-14) % Eos % (Auto) 2.3 (2-4) % Baso % (Auto) 0.4 (0-2) % Neut # (Auto) 5700 (0192-1454) /uL Lymph # (Auto) 200 L (8867-3500) /uL [place] # (Auto) 500 (0-900) /uL Eos # (Auto) 200 (0-450) /uL Baso # (Auto) 0 (0-100) /uL PT 12.9 H (10.1-12.7) SECONDS INR 1.2 (0.9-1.3) D-Dimer 2929 H (<230) ng/mL ABG pH (7.35-7.45) ABG pCO2 (35-45) mmHg ABG pO2 (80-100) mmHg ABG HCO3 (22-26) mmol/L ABG Total CO2 (21-31) mmol/L ABG O2 Saturation (95-100) % ABG Base Excess (-2-2) mmol/L FiO2 Sodium (137-145) mmol/L Potassium (3.4-5.1) mmol/L Chloride (98-107) mmol/L Carbon Dioxide (22-32) mmol/L BUN (9-20) mg/dL Creatinine (0.66-1.25) mg/dL Estimated GFR (>60) mL/min BUN/Creatinine Ratio (6-22) Glucose (80-110) mg/dL Lactate (0.7-2.1) mmol/L Calcium (8.4-10.2) mg/dL Magnesium 2.0 (1.6-2.3) mg/dL Total Bilirubin (0.2-1.3) mg/dL AST (17-59) IU/L ALT (<50) IU/L Alkaline Phosphatase (38-126) U/L Total Creatine Kinase 31 L (55-170) U/L CK-MB (CK-2) TNP CK-MB (CK-2) Rel Index TNP Troponin I 0.016 (0.01-0.034) ng/mL NT-Pro-B Natriuret Pep 2890 H (<450) pg/mL Total Protein (6.3-8.2) g/dL Albumin (3.5-5.0) g/dL Globulin (1.7-4.1) g/dL Albumin/Globulin Ratio (1.0-2.8) Procalcitonin 0.06 (<0.5) ng/mL SARS-CoV-2 (PCR) (Negative) 10/27/20 10/27/20 10/27/20 Range/Units 01:00 01:00 01:00 WBC (4.5-11.0) X10^3/uL RBC (4.5-5.9) X10^6/uL Hgb (13.5-17.5) g/dL Hct (41-53) % MCV (80-100) fL MCH (26-34) PG MCHC (30-36) % RDW (11.6-14.8) % Plt Count (150-400) X10^3/uL Neut % (Auto) (50-75) % Lymph % (Auto) (25-40) % [place] % (Auto) (3-14) % Eos % (Auto) (2-4) % Baso % (Auto) (0-2) % Neut # (Auto) (9724-6899) /uL Lymph # (Auto) (4256-5703) /uL [place] # (Auto) (0-900) /uL Eos # (Auto) (0-450) /uL Baso # (Auto) (0-100) /uL PT (10.1-12.7) SECONDS INR (0.9-1.3) D-Dimer (<230) ng/mL ABG pH (7.35-7.45) ABG pCO2 (35-45) mmHg ABG pO2 (80-100) mmHg ABG HCO3 (22-26) mmol/L ABG Total CO2 (21-31) mmol/L ABG O2 Saturation (95-100) % ABG Base Excess (-2-2) mmol/L FiO2 Sodium 138 (137-145) mmol/L Potassium 3.9 (3.4-5.1) mmol/L Chloride 90 L (98-107) mmol/L Carbon Dioxide 40 H* (22-32) mmol/L BUN 26 H (9-20) mg/dL Creatinine 1.23 (0.66-1.25) mg/dL Estimated GFR 56.3 L (>60) mL/min BUN/Creatinine Ratio 21.1 (6-22) Glucose 116 H (80-110) mg/dL Lactate 1.4 (0.7-2.1) mmol/L Calcium 9.2 (8.4-10.2) mg/dL Magnesium (1.6-2.3) mg/dL Total Bilirubin 0.3 (0.2-1.3) mg/dL AST 22 (17-59) IU/L ALT 14 (<50) IU/L Alkaline Phosphatase 89 (38-126) U/L Total Creatine Kinase (55-170) U/L CK-MB (CK-2) CK-MB (CK-2) Rel Index Troponin I (0.01-0.034) ng/mL NT-Pro-B Natriuret Pep (<450) pg/mL Total Protein 7.3 (6.3-8.2) g/dL Albumin 3.7 (3.5-5.0) g/dL Globulin 3.6 (1.7-4.1) g/dL Albumin/Globulin Ratio 1.0 (1.0-2.8) Procalcitonin (<0.5) ng/mL SARS-CoV-2 (PCR) Negative (Negative) 10/27/20 Range/Units 01:41 WBC (4.5-11.0) X10^3/uL RBC (4.5-5.9) X10^6/uL Hgb (13.5-17.5) g/dL Hct (41-53) % MCV (80-100) fL MCH (26-34) PG MCHC (30-36) % RDW (11.6-14.8) % Plt Count (150-400) X10^3/uL Neut % (Auto) (50-75) % Lymph % (Auto) (25-40) % [place] % (Auto) (3-14) % Eos % (Auto) (2-4) % Baso % (Auto) (0-2) % Neut # (Auto) (7384-4345) /uL Lymph # (Auto) (6824-0796) /uL [place] # (Auto) (0-900) /uL Eos # (Auto) (0-450) /uL Baso # (Auto) (0-100) /uL PT (10.1-12.7) SECONDS INR (0.9-1.3) D-Dimer (<230) ng/mL ABG pH 7.50 H (7.35-7.45) ABG pCO2 57.4 H (35-45) mmHg ABG pO2 234 H (80-100) mmHg ABG HCO3 45 H (22-26) mmol/L ABG Total CO2 46 H (21-31) mmol/L ABG O2 Saturation 100 (95-100) % ABG Base Excess 21.0 H (-2-2) mmol/L FiO2 100 Sodium (137-145) mmol/L Potassium (3.4-5.1) mmol/L Chloride (98-107) mmol/L Carbon Dioxide (22-32) mmol/L BUN (9-20) mg/dL Creatinine (0.66-1.25) mg/dL Estimated GFR (>60) mL/min BUN/Creatinine Ratio (6-22) Glucose (80-110) mg/dL Lactate (0.7-2.1) mmol/L Calcium (8.4-10.2) mg/dL Magnesium (1.6-2.3) mg/dL Total Bilirubin (0.2-1.3) mg/dL AST (17-59) IU/L ALT (<50) IU/L Alkaline Phosphatase (38-126) U/L Total Creatine Kinase (55-170) U/L CK-MB (CK-2) CK-MB (CK-2) Rel Index Troponin I (0.01-0.034) ng/mL NT-Pro-B Natriuret Pep (<450) pg/mL Total Protein (6.3-8.2) g/dL Albumin (3.5-5.0) g/dL Globulin (1.7-4.1) g/dL Albumin/Globulin Ratio (1.0-2.8) Procalcitonin (<0.5) ng/mL SARS-CoV-2 (PCR) (Negative) Imaging Data CT scan - chest: Radiologist's Impression: No PE. Large right pleural effusion. Patchy areas of ground-glass opacity in the right upper lobe consistent with infectious or inflammatory process. [facility] Narrative Medical decision making narrative: Patient with increased work of breathing and oxygen requirements over the past few days. He has multiple causes for his respiratory distress as evidenced by imaging noting airspace disease, pleural effusion and CO2 retention. He will require hospitalization for ultrasound-guided therapeutic thoracentesis, antibiotics, diuresis and consultation with his primary care provider to establish a long-term plan as an outpatient. Discharge Plan Departure Patient Disposition: Admitted as Observation Clinical Impression: Acute respiratory failure with hypoxia and hypercarbia, Pleural effusion, Pulmonary edema, Pneumonia
[2020-10-27 01:59] LABS: HCO3 ABG 45 mmol/L (22-26); PCO2 ABG 57.4 mmHg (35-45); PO2 ABG 234 mmHg (80-100); TCO2 ABG 46 mmol/L (21-31)
[2020-10-27 02:00] LABS: Fractionated Inspired Oxygen 100; Oxygen Saturation ABG 100 % (95-100)
--- NOTE | 2020-10-27 02:56 | DI.CT.S_ITS ---
PROCEDURE: CT ANGIO CHEST PE PROTOCOL INDICATIONS: increased Shortness of breath, hypoxia, recent hospitalization, critical D-dimer TECHNIQUE: After the administration of intravenous contrast, 2 mm thick sections acquired from the pulmonary apices to the posterior costophrenic angles. 3-dimensional maximum intensity projection (MIP) coronal and sagittal reformats were then acquired through the thorax. For radiation dose reduction, the following was used: automated exposure control, adjustment of mA and/or kV according to patient size. COMPARISON: [facility], CR, XR CHEST 1V, 10/27/2020, 0:49. [facility], CR, XR CHEST 2V, 07/19/2020, 9:05. [facility], CT, CT CHEST WO CON, 01/12/2020, 12:53. FINDINGS: Image quality: Excellent. Pulmonary arteries: Pulmonary arteries demonstrate no intraluminal filling defects to suggest central pulmonary embolism. Right pulmonary artery measures 3.2 cm, (). Left pulmonary artery measures 2.5 cm. Lungs and pleura: Patchy areas of ground-glass and consolidative airspace opacity bilaterally, new. Spiculated opacity at the left lung base is unchanged. Similar subpleural nodularity bilaterally. Interlobular septal thickening there are secretions in the trachea. Bilateral compressive atelectasis. Large right and small left pleural effusions, slightly increased. Small bilateral calcified pleural plaques. No pneumothorax. Mediastinum: Left pacemaker with right atrial and right ventricular leads. Heart size is prominent, without pericardial effusion. Calcified mediastinal and hilar adenopathy. Thoracic aorta is normal in caliber and enhancement. Esophagus is normal in caliber, without hiatal hernia. Bones and chest wall: No suspicious bony lesions. Ribs and thoracic spine appear intact throughout. Bridging anterior vertebral body osteophytes. Bones appear osteopenic. Thyroid gland is unremarkable. No axillary or supraclavicular adenopathy. Abdomen: Cholelithiasis. Visualized upper abdominal solid organs appear normal in the early arterial phase of enhancement. IMPRESSION: 1. No pulmonary embolism. Right pulmonary artery is dilated. This could be seen in pulmonary arterial hypertension. 2. Bilateral patchy and consolidative airspace opacities, new. Findings most compatible with infectious/inflammatory etiology. 3. Large right and small left pleural effusions, slightly increased. 4. Bilateral calcified pleural plaques. This is frequently seen in prior asbestos exposure. 5. Masslike consolidation at the left lung base is similar in appearance. 6. Calcified mediastinal and hilar lymph nodes due to prior granulomatous process. 7. Cholelithiasis. This report is concordant with the overnight preliminary interpretation. Dictated by: Jimmy Mena M.D. on 10/27/2020 at 8:52 Approved by: Jimmy Mena M.D. on 10/27/2020 at 9:08
--- NOTE | 2020-10-27 03:37 | RT ---
Addendum entered by Mariajose Garces, RT 10/27/20 06:03: Per chart, pt takes Advair and albuterol at home. Ordered replacement SVNs for admission. Original Note: Assessed pt at 0109. Pt is here for SOB x2 days. Pt came in on 5 LPM, RR 28. Placed pt on 15 LPM HFNC for increased WOB. Pt's WOB decreased and is tolerating, SpO2 100%, RR 23. BS diminished with faint inspiratory crackles throughout. CXR showed bilateral opacities and pleural effusions. Recommending thoracentesis, diuretics, O2 therapy as needed, and pt's home regimen of respiratory meds.
[2020-10-27] MEDS: FUROSEMIDE 40 MG/4 ML VIAL IV ×3 (04:39→18:23)
[2020-10-27] MEDS: PIPERACILLIN/TAZO 4.5 GM in SODIUM CHLORIDE 0.9% 100 ML 200 ML IV (04:41)
[2020-10-27] MEDS: CALCIUM CARBONATE 500 MG TAB 1000 MG PO (05:18)
--- NOTE | 2020-10-27 05:30 | DI.US.S_ITS ---
PROCEDURE: US THORACENTESIS INDICATIONS: RIGHT PLEURAL EFFUSION TECHNIQUE: The indications, alternatives, benefits, risks, and complications of the procedure were explained to the patient. Written informed consent was obtained and placed in the chart. The chest was examined sonographically, and an appropriate site was chosen for thoracentesis. The skin was prepared and draped in the usual sterile fashion, and 1% lidocaine was infiltrated from the skin down through the pleural surface. A 19-gauge catheter-covered needle was then introduced into the pleural space, the catheter was advanced and the needle was withdrawn, and thereafter pleural fluid was aspirated. The catheter was then removed and a dressing was applied. COMPARISON: Merged with [facility], THORACENTESIS, 09/20/2018, 13:09. FINDINGS: Access site: Right hemithorax. Needle: One-Step centesis catheter with introducer needle. Fluid volume and description: 1800 mL of clear, straw-colored pleural effusion Fluid sent for diagnostic testing: Approximately 100 mL of pleural fluid was sent for testing. Medications: 1% lidocaine for local anaesthesia. Complications: None; post-procedural chest radiograph is pending to assess for pneumothorax. IMPRESSION: Successful ultrasound-guided thoracentesis. Dictated by: Juan Che M.D. on 10/27/2020 at 17:09 Approved by: Juan Che M.D. on 10/27/2020 at 17:10
--- NOTE | 2020-10-27 05:30 | PM.HP.1 ---
History of Present Illness History of Present Illness Date Patient Seen: 10/27/20 Time Patient Seen: 05:31 Chief complaint: difficulty breathing for two days Narrative: Patient is a 80-year-old male former smoker with history of hypertension, asbestosis, pacemaker and ICD for complete heart block, history of prostate cancer, coronary artery disease, GI bleed and former pleural effusion presents with family friend and a chief complaint of increasing work of breathing and shortness of breath the past 2 days. He is not dizzy or lightheaded but has become generally weak. He admits to an ongoing dry and hacking cough. He has had no fever or chills. His shortness of breath is worse with exertion and lying flat seems to improve with rest. He denies any significant chest pain, nausea, vomiting or diarrhea. He was recently seen by myself and was quite ill with large, upper GI bleed resulting in the need for transfer, his evaluation including both upper and lower scope notes active diverticular bleeding which required right colic artery coil embolization with Interventional Radiology. He required multiple units of red cell transfusion. He developed increasing shortness of breath which required supplemental oxygen and imaging noted bilateral pleural effusions. This was thought to be due to large volume overload, he did require thoracentesis. Patient upon admit temp is stable at 98.4, mild hypertension 149/76, HR 90, slightly tachypneic are 26, O2 saturation 100% on 15 L nasal cannula. Patient demonstrates acute respiratory failure with hypercapnia and hypoxia, with metabolic alkalosis as evidence by ABGs: PH 7.50, pCO2 57.4, PO2 234, HC03 45, total CO2 46, base excess 21. Patient was assessed for admit in the ED where he was found hunched over bedside table Patient's serum chloride 90, BUN 26, HC03 40, GFR 56.3. Patient with chronic anemia secondary to active diverticular bleeding as evidence by hgb 9.0, HCT 29. RBC 3.38. Patient's D-dimer was 2929, Lactate was within normal limits, procalcitonin within normal limits, CURB- 65 score of 2, and a sofa score of 2, BNP was elevated at 2890. Troponin 1#. 0.016 within normal limits. Chest CT:No PE was found but was positive for a large right pleural effusion with patchy areas of ground-glass opacity in the right upper lobe consistent with possible pneumonia. Due to noted airspace disease, asbestos pleurisy, pulmonary edema, and CO2 retention. He will require hospitalization for ultrasound-guided therapeutic thoracentesis, antibiotics, diuresis and consultation with his primary care provider to establish a long-term plan as an outpatient management. Patient History Medical History Asbestos pleurisy Blindness of right eye Colon polyps Complete heart block GI bleed History of retinal hemorrhage HLD (hyperlipidemia) HTN (hypertension) Prostate CA Surgical History AICD (automatic cardioverter/defibrillator) present H/O prostatectomy History of shoulder surgery History of total bilateral knee replacement Family & Social History Family History (Updated 10/27/20 @ 06:56 by CASSIDY Billingsley-NIMESH) Mother Diabetes mellitus Congestive heart failure Father Gunshot wound Social History: household members spouse,children Safety & Behavioral: Feels Safe in Current Yes Environment Been Physically Hurt or No Threatened By a Person Tobacco & Substance use: Smoking Status Never smoker alcohol intake former alcohol intake frequency 0-2 drinks per day Substance Use Type does not use Meds Home Medications and Allergies Home Medications Medication Instructions Recorded Confirmed Type multivitamin 1 tab PO DAILY #0 04/13/11 08/04/19 History fluticasone 100 mcg-salmeterol 50 1 puff INHALATION PRN #0 01/17/12 08/04/19 History mcg/dose blistr powdr for inhalation (Advair Diskus) clobetasol 0.05 % topical cream 1 applic TOPICAL DIRECTED 08/14/17 09/19/18 History furosemide 40 mg tablet 80 mg PO DAILY 08/14/17 08/04/19 History promethazine 6.25 mg-codeine 10 5 ml PO PRN PRN 08/14/17 03/25/19 History mg/5 mL syrup spironolactone 50 mg tablet 50 mg PO MOWEFR 08/14/17 08/04/19 History terazosin 2 mg capsule 2 mg PO DAILY 03/25/18 08/04/19 History brimonidine 0.2 % eye drops 1 drp OPHTHALMIC (EYE) TID 12/10/19 12/10/19 History oxycodone-acetaminophen 5 mg-325 1 tab PO Q6H PRN 03/25/19 08/04/19 History mg tablet aspirin 81 mg tablet,delayed 81 mg PO DAILY #30 tab 08/04/19 Rx release docusate sodium 100 mg capsule 100 mg PO BID #60 cap 08/04/19 Rx (DOK) polyethylene glycol 3350 17 gram 17 gm PO DAILY #30 ea 08/04/19 Rx oral powder packet famotidine 20 mg tablet 20 mg PO DAILY #90 tab 08/18/19 Rx Allergies Allergy/AdvReac Type Severity Reaction Status Date / Time No Known Drug Allergies Allergy Verified 08/01/19 16:02 Review of Systems Review of Systems Narrative: Patient complains of shortness of breath though improved since he came to the ED, orthopnea, Cough-productive, shortness of breath with any activity or movement, denies chest pain, headache, changes in vision, fever, body aches, or chills, denies nausea, vomiting, abdominal pain. Complains of moderate and worsening bilateral peripheral edema. Respiratory Comments: Exam Vital Signs (past 8 hours): - 10/27/20 00:37 10/27/20 01:09 10/27/20 01:10 Temperature 98.4 F Pulse Rate 90 90 90 Respiratory Rate 26 H 24 26 H Blood Pressure 149/76 H Pulse Oximetry 100 100 100 Oxygen Delivery Method High Flow Nasal Cannula Oxygen Flow Rate 15 Narrative Exam Narrative: GENERAL: Well-developed male, patient appears older than stated age. Chronically ill and in acute distress with increased work of breathing with minimal exertion including use of accessory muscles and oxygen at 15 L HEAD: Atraumatic. Normocephalic. EYES: Pupils equal round and reactive. Extraocular motions intact. No scleral icterus. No injection or drainage. ENT: Poor dentition throughout, moist mucous membranes Nose without bleeding, purulent drainage. Throat without erythema, tonsillar hypertrophy or exudate. Airway patent. NECK: Trachea midline. Non tender CARDIOVASCULAR: Regular rate and rhythm without murmurs, gallops, or rubs. RESPIRATORY: Decreased breath sounds bilaterally with prolonged expiratory phase, increased work of breathing, tachypnea, orthopnea, occasional dry cough. GASTROINTESTINAL: Abdomen soft, non-tender, nondistended. EXTREMITIES: 2+ pitting edema bilateral lower extremities. BACK: Nontender without deformity or crepitance. No flank tenderness. NEURO: AOx3. SKIN: No rash or erythema of visible areas Objective Labs Result Diagrams: 10/27/20 01:00 10/27/20 01:00 Labs: Laboratory Results - last 24 hr 10/27/20 10/27/20 10/27/20 01:00 01:00 01:00 WBC 6.6 RBC 3.38 L Hgb 9.0 L Hct 29.0 L MCV 85.9 MCH 26.5 MCHC 30.8 RDW 17.7 H Plt Count 298 Neut % (Auto) 85.8 H Lymph % (Auto) 3.6 L Desha % (Auto) 7.9 Eos % (Auto) 2.3 Baso % (Auto) 0.4 Neut # (Auto) 5700 Lymph # (Auto) 200 L Desha # (Auto) 500 Eos # (Auto) 200 Baso # (Auto) 0 PT 12.9 H INR 1.2 D-Dimer 2929 H ABG pH ABG pCO2 ABG pO2 ABG HCO3 ABG Total CO2 ABG O2 Saturation ABG Base Excess FiO2 Sodium Potassium Chloride Carbon Dioxide BUN Creatinine Estimated GFR BUN/Creatinine Ratio Glucose Lactate Calcium Magnesium 2.0 Total Bilirubin AST ALT Alkaline Phosphatase Total Creatine Kinase 31 L CK-MB (CK-2) TNP CK-MB (CK-2) Rel Index TNP Troponin I 0.016 NT-Pro-B Natriuret Pep 2890 H Total Protein Albumin Globulin Albumin/Globulin Ratio Procalcitonin 0.06 SARS-CoV-2 (PCR) 10/27/20 10/27/20 10/27/20 01:00 01:00 01:00 WBC RBC Hgb Hct MCV MCH MCHC RDW Plt Count Neut % (Auto) Lymph % (Auto) Desha % (Auto) Eos % (Auto) Baso % (Auto) Neut # (Auto) Lymph # (Auto) Desha # (Auto) Eos # (Auto) Baso # (Auto) PT INR D-Dimer ABG pH ABG pCO2 ABG pO2 ABG HCO3 ABG Total CO2 ABG O2 Saturation ABG Base Excess FiO2 Sodium 138 Potassium 3.9 Chloride 90 L Carbon Dioxide 40 H* BUN 26 H Creatinine 1.23 Estimated GFR 56.3 L BUN/Creatinine Ratio 21.1 Glucose 116 H Lactate 1.4 Calcium 9.2 Magnesium Total Bilirubin 0.3 AST 22 ALT 14 Alkaline Phosphatase 89 Total Creatine Kinase CK-MB (CK-2) CK-MB (CK-2) Rel Index Troponin I NT-Pro-B Natriuret Pep Total Protein 7.3 Albumin 3.7 Globulin 3.6 Albumin/Globulin Ratio 1.0 Procalcitonin SARS-CoV-2 (PCR) Negative 10/27/20 01:41 WBC RBC Hgb Hct MCV MCH MCHC RDW Plt Count Neut % (Auto) Lymph % (Auto) Desha % (Auto) Eos % (Auto) Baso % (Auto) Neut # (Auto) Lymph # (Auto) Desha # (Auto) Eos # (Auto) Baso # (Auto) PT INR D-Dimer ABG pH 7.50 H ABG pCO2 57.4 H ABG pO2 234 H ABG HCO3 45 H ABG Total CO2 46 H ABG O2 Saturation 100 ABG Base Excess 21.0 H FiO2 100 Sodium Potassium Chloride Carbon Dioxide BUN Creatinine Estimated GFR BUN/Creatinine Ratio Glucose Lactate Calcium Magnesium Total Bilirubin AST ALT Alkaline Phosphatase Total Creatine Kinase CK-MB (CK-2) CK-MB (CK-2) Rel Index Troponin I NT-Pro-B Natriuret Pep Total Protein Albumin Globulin Albumin/Globulin Ratio Procalcitonin SARS-CoV-2 (PCR) Assessment & Plan Assessment & Plan narrative: This patient is a 80-year-old male former smoker with history of hypertension, asbestosis, pacemaker and ICD for complete heart block, history of prostate cancer, coronary artery disease, GI bleed x 2, active diverticula bleed, and recent pleural effusion who presents with and requires acute care inpatient hospital management of acute respiratory hypercapnic hypoxic respiratory failure with pleural effusion, likely hospital-acquired pneumonia, pulmonary edema in the setting chronic asbestos pleurisy, after failing outpatient management. The patient is at much higher risk for medical and surgical complications because of his complex medical history. These factors increase the difficulty and complexity of medical and surgical interventions and increases the chances of poor outcomes such as morbidity and mortality, as well as complications such as septic shock, respiratory arrest, morbidity and mortality. The patient's S best is pleural say, acute respiratory failure, pleural effusion, pneumonia, pulmonary edema will impact his oxygenation, which will likely contribute to poor outcome. 1. Respiratory failure, acute on chronic, hypercapnia and hypoxic, metabolic alkalosis, in the setting of bilateral pleural effusion, possible pneumonia, pulmonary edema, in the setting of asbestos pleurisy, acute on chronic, as evidence by tachypnea and orthopnea, acute on chronic, present on admission - RR 26, O2 saturation 100% on 15 L nasal cannula. ABGs: PH 7.50, pCO2 57.4, PO2 234, HC03 45, total CO2 46, base excess 21. serum chloride 90, BUN 26, HC03 40, GFR 56.3. D-dimer 2929, curb-65:2, sofa score: 2. Chest CT:No PE was found but was positive for a large right pleural effusion with patchy areas of ground-glass opacity in the right upper lobe consistent with possible pneumonia. Due to noted airspace disease, asbestos pleurisy, pulmonary edema, and CO2 retention. -monitor for central, neuromuscular, thoracic cage disorders, risk septic shock -a.m. labs ordered pro BNP, magnesium, CBC, CMP, Repeat ABG PRN. -patient to be monitored on [facility], vital signs q.4 hours, intake and output monitored Q shift, weight measure daily, diet: Fluid restriction to 2 L q.day -prednisone 50 mg q.day times 5-7 days, Zosyn 3.375 mg q.6 hours plus Levaquin 750 mg q.day -covering for risk of MDR, Pseudomonas, Gram-negative back sellae, MRSA. -blood cultures pending and sputum cultures ordered -respiratory consult ordered -thoracentesis ordered 2. Diastolic congestive heart failure with preserved ejection fraction, acute on chronic, present on admission. exacerbation -as evidence by a BNP 2890 -thoracentesis ordered for pulmonary edema -Echocardiogram on 09/20/2018 demonstrated normal LV function, EF of 70-75%, moderate left ventricular thickening with normal function, right ventricle mild to moderately dilated, PA pressure estimated at 51, severely dilated left atrium and moderate dilation right atrium. -Continue home spironolactone 50 mg 3 times a week. -IV Lasix 40mg BID -Continue strict I&Os and daily weights. Net -2 L. -Continue to monitor electrolytes and replete as necessary. 3. Complete heart block, status post pacemaker implantation, acute on chronic, present on admission. Stable. -Patient had third-degree heart block status post AICD. Patient is followed by cardiology Dr. Richmond. -EKG demonstrated sinus rhythm with 100% ventricular pacing. 4. Chronic asbestosis pleurisy, acute on chronic, present on admission. Exacerbation -Patient has history of asbestosis and prior left pleural effusion having undergone thoracentesis in May 2018. -Continue home Advair Diskus inhaler once daily as needed. 6. Hypertension, acute on chronic, present on admission. Stable. -Continue home spironolactone 50 mg 3 times weekly. And IV Lasix 7. Hyperlipidemia, chronic, present on admission. Presumed stable. -Patient is not currently on cholesterol lowering medication. -Defer follow-up and treatment to primary care provider. 8. History of prostate cancer presumed to be in remission -Status post prostatectomy with variable urinary pattern. -No evidence of recurrence. 9. Valvular heart disease, chronic, present on admission. Stable. -Patient has both moderate aortic stenosis and mitral stenosis on echocardiogram 09/2018. 10. History of GI bleed with acute diverticular bleed, resulting in chronic anemia, acute on chronic, present on admission -continue to monitor patient's H&H hemoglobin 9.0 on admit hematocrit 29, RBC 3.38 Code status: DNR Surrogate decision maker: Fran Estrada Son COVID PCR: Negative DVT/VTE prophylaxis: Contraindicated due to repeat GI bleeds and current active diverticula bleed in the setting of mild anemia, SCDs only Estimated length of stay: Less than 2 midnights Scores [facility] [place] coma scale eye opening: Spontaneous Dean coma scale verbal response: Orientated [place] coma scale motor response: Obey commands [place] coma scale total score: 15
[2020-10-27 06:53] LABS: Add Manual Diff / Slide Review NO; Basophils Absolute Auto 0 /uL (0-100); Basophils Percent Auto 0.3 % (0-2); Eosinophils Absolute Auto 0 /uL (0-450); Eosinophils Percent Auto 0.1 % (2-4); Hematocrit 27.5 % (41-53); Hemoglobin 8.6 g/dL (13.5-17.5); Lymphocytes Absolute Auto 0 /uL (1100-4500); Lymphocytes Percent Auto 0.8 % (25-40); Mean Corpuscular HGB Conc 31.3 % (30-36); Mean Corpuscular Hemoglobin 26.9 PG (26-34); Mean Corpuscular Volume 85.8 fL (80-100); Monocytes Absolute Auto 100 /uL (0-900); Monocytes Percent Auto 1.2 % (3-14); Neutrophils Absolute Auto 6000 /uL (1500-7000); Neutrophils Percent Auto 97.6 % (50-75); Platelet Count 278 X10^3/uL (150-400); Red Cell Distribution Width 17.9 % (11.6-14.8); White Blood Cell Count 6.2 X10^3/uL (4.5-11.0)
[2020-10-27 07:00] LABS: Alanine Aminotransferase 14 IU/L (<50); Albumin 3.6 g/dL (3.5-5.0); Albumin Globulin Ratio 1.1 (1.0-2.8); Alkaline Phosphatase 89 U/L (38-126); Aspartate Aminotransferase 21 IU/L (17-59); BUN Creatinine Ratio 23.5 (6-22); Bilirubin Total 0.3 mg/dL (0.2-1.3); Blood Urea Nitrogen 27 mg/dL (9-20); Calcium 9.1 mg/dL (8.4-10.2); Carbon Dioxide 37 mmol/L (22-32); Chloride 92 mmol/L (98-107); Estimated Glomerular Filt Rate > 60.0 mL/min (>60); Globulin 3.3 g/dL (1.7-4.1); Glucose 159 mg/dL (80-110); HEMOLYSIS < 15 (0-50); Potassium 4.1 mmol/L (3.4-5.1); Sodium 136 mmol/L (137-145); Total Protein 6.9 g/dL (6.3-8.2)
[2020-10-27 07:02] LABS: C-Reactive Protein Quant 3.4 mg/dL (<1.0)
[2020-10-27 07:09] LABS: NT-proBNP (BNP-Adult 18+) 2700 pg/mL (<450)
[2020-10-27 07:12] LABS: Troponin I 0.013 ng/mL (0.01-0.034)
[2020-10-27] MEDS: PANTOPRAZOLE DR 20 MG TABLET PO (07:21)
--- NOTE | 2020-10-27 08:29 | PATH_ITS ---
Note [facility] Accession Number: [id number] TESTS RESULT FLAG UNITS REF RANGE LAB Clinician Provided Cytology Information No. of containers..01 Other (Miscellaneous) R PLEURAL EFFUSION DIAGNOSIS: R PLEURAL EFFUSION NEGATIVE FOR MALIGNANT CELLS. THIS INTERPRETATION INCLUDES EVALUATION OF A CELL BLOCK. Pathologist ICD10: 02 J90 02 Shahla Ott MD, Pathologist NPI- [id number] Chu Mane, Industrial Psychology Teacher ([facility]) 01 50 CC, PALE YELLOW, CLOUDY /LCS 10/27/2020 2340 Local FLAG LEGEND: L-Low Normal,H-High Normal,LL-Alert Low,HH-Alert High <-Panic Low,>-Panic High,A-Abnormal,AA-Critical Abnormal Performed at: 01 =Z [facility] Cytology [address], [place] [address] Sorin Zepeda MD, 02 LCLWA [facility] [address] [place] [id number] Nora Manuel MD, Performed at: 01 [facility] [address], [place], [place] [id number] MD Sorin Zepeda MD Phone: [phone]
[2020-10-27] MEDS: predniSONE 20 MG TABLET 50 MG PO (08:44)
[2020-10-27] MEDS: ALBUTEROL 2.5 MG/3 ML NEB (ADULT) INH ×4 (08:47→23:10)
[2020-10-27] MEDS: OXYCODONE IR 5 MG TABLET PO (08:52)
--- NOTE | 2020-10-27 09:15 | PC.NURSE ---
Patient belongings brought up by ER nurse, whom states that patient was taken to a scan first and will be brought up directly from that. Will follow.
[2020-10-27 11:11] LABS: Body Fluid Appearance SLIGHTLY CLOUDY; Body Fluid Clotted? NO CLOTS PRESENT; Body Fluid Color YELLOW; Body Fluid Red Blood Cells 2906 /uL; Body Fluid Tot Nucleated Cells 231 /uL; Eosinophils Body Fluid 1 %; Mononuclear WBC Body Fluid 95 %; Other Cells Body Fluid 0 %; Polynuclear WBC Body Fluid 4 %
[2020-10-27 11:31] LABS: Glucose Body Fluid 119 mg/dL; LDH Body Fluid 317 U/L; Total Protein Body Fluid 2.5 g/dL
[2020-10-27] MEDS: PIPERACILLIN/TAZO 3.375 GM in SODIUM CHLORIDE 0.9% 100 ML 25 ML IV ×2 (13:43→21:54)
[2020-10-27] MEDS: SODIUM CHLORIDE 0.9% FLUSH 10 ML IV (21:54)
[2020-10-27] MEDS: SENNOSIDES 8.6 MG TABLET 17.2 MG PO (21:54)
[2020-10-28] VITALS (10 sets, daily range): BP systolic 93–122; BP diastolic 59–76; PULSE 62–94; RESP 12–20; TEMP 35.7–36.8; O2SAT 90–100
[2020-10-28] MEDS: PANTOPRAZOLE DR 20 MG TABLET PO (05:34)
[2020-10-28] MEDS: PIPERACILLIN/TAZO 3.375 GM in SODIUM CHLORIDE 0.9% 100 ML 25 ML IV ×3 (05:34→20:44)
[2020-10-28 07:21] LABS: Add Manual Diff / Slide Review NO; Basophils Absolute Auto 0 /uL (0-100); Basophils Percent Auto 0.2 % (0-2); Eosinophils Absolute Auto 0 /uL (0-450); Hematocrit 23.9 % (41-53); Hemoglobin 7.6 g/dL (13.5-17.5); Lymphocytes Absolute Auto 100 /uL (1100-4500); Lymphocytes Percent Auto 1.3 % (25-40); Mean Corpuscular HGB Conc 31.8 % (30-36); Mean Corpuscular Hemoglobin 27.1 PG (26-34); Mean Corpuscular Volume 85.1 fL (80-100); Monocytes Absolute Auto 500 /uL (0-900); Monocytes Percent Auto 6.8 % (3-14); Neutrophils Absolute Auto 6600 /uL (1500-7000); Neutrophils Percent Auto 91.7 % (50-75); Platelet Count 235 X10^3/uL (150-400); Red Cell Distribution Width 17.7 % (11.6-14.8); White Blood Cell Count 7.2 X10^3/uL (4.5-11.0)
[2020-10-28 07:35] LABS: Alanine Aminotransferase 11 IU/L (<50); Albumin 3.1 g/dL (3.5-5.0); Albumin Globulin Ratio 1.1 (1.0-2.8); Alkaline Phosphatase 68 U/L (38-126); Aspartate Aminotransferase 19 IU/L (17-59); BUN Creatinine Ratio 23.8 (6-22); Bilirubin Total 0.3 mg/dL (0.2-1.3); Blood Urea Nitrogen 30 mg/dL (9-20); Calcium 8.8 mg/dL (8.4-10.2); Chloride 93 mmol/L (98-107); Estimated Glomerular Filt Rate 54.8 mL/min (>60); Globulin 2.8 g/dL (1.7-4.1); Glucose 104 mg/dL (80-110); HEMOLYSIS < 15 (0-50); Potassium 3.8 mmol/L (3.4-5.1); Sodium 136 mmol/L (137-145); Total Protein 5.9 g/dL (6.3-8.2)
[2020-10-28 08:09] LABS: Carbon Dioxide 38 mmol/L (22-32)
[2020-10-28] MEDS: ALBUTEROL 2.5 MG/3 ML NEB (ADULT) INH ×4 (08:23→23:36)
[2020-10-28] MEDS: BUDESONIDE 0.5 MG/2 ML NEB INH ×2 (08:33→20:30)
[2020-10-28] MEDS: predniSONE 20 MG TABLET 50 MG PO (08:53)
[2020-10-28] MEDS: ASPIRIN EC 81 MG TABLET PO (08:53)
[2020-10-28] MEDS: SODIUM CHLORIDE 0.9% FLUSH 10 ML IV ×3 (08:54→20:45)
[2020-10-28] MEDS: FUROSEMIDE 40 MG/4 ML VIAL IV ×2 (08:54→16:05)
[2020-10-28] MEDS: OXYCODONE IR 5 MG TABLET PO ×2 (08:54→23:59)
--- NOTE | 2020-10-28 14:26 | P.PN_ITS ---
Subjective Subjective Date Patient Seen: 10/28/20 Time Patient Seen: 08:30 Interval history: This is an 80-year-old male admitted with acute respiratory failure secondary to large right-sided pleural effusion and volume overload from diastolic heart failure. He recently had an echocardiogram on October 09 in [place] where he was noted to have moderate to severe mitral stenosis with a grade 2 left ventricular diastolic dysfunction. EF was 65%. He had a thor acentesis yesterday which showed a probable transudative effusion consistent with heart failure, though his serum LDH was not initially sent will add this on today as his value was a little high. Today he feels much improved, still short of breath and still on oxygen this morning, he still has significant lower extremity edema but he also notes this is improving as well. Exam Vital Signs (past 8 hours): - 10/28/20 07:35 10/28/20 08:23 10/28/20 08:33 Temperature 96.3 F L Pulse Rate 91 H 88 88 Respiratory Rate 12 18 18 Blood Pressure 109/76 Pulse Oximetry 100 90 L 90 L 10/28/20 13:19 Temperature Pulse Rate 62 Respiratory Rate 18 Blood Pressure Pulse Oximetry 95 Oxygen Delivery Method Nasal Cannula Oxygen Flow Rate 3 Narrative Exam Narrative: GENERAL: Well-developed male, patient appears older than stated age. Chronically ill, comfortable. no acute distress. HEAD: Atraumatic. Normocephalic. EYES: Pupils equal round and reactive. Extraocular motions intact. No scleral icterus. No injection or drainage. ENT: Poor dentition throughout, moist mucous membranes Nose without bleeding, purulent drainage. Throat without erythema, tonsillar hypertrophy or exudate. Airway patent. NECK: Trachea midline. Non tender CARDIOVASCULAR: Regular rate and rhythm without murmurs, gallops, or rubs. RESPIRATORY: Decreased breath sounds bilaterally with prolonged expiratory phase, increased work of breathing, tachypnea, orthopnea, occasional dry cough. GASTROINTESTINAL: Abdomen soft, non-tender, nondistended. EXTREMITIES: 2+ pitting edema bilateral lower extremities. BACK: Nontender without deformity or crepitance. No flank tenderness. NEURO: AOx3. SKIN: No rash or erythema of visible areas Objective Labs Result Diagrams: 10/28/20 06:51 10/28/20 06:51 Labs: Laboratory Results - last 24 hr 10/28/20 10/28/20 06:51 06:51 WBC 7.2 RBC 2.80 L Hgb 7.6 L Hct 23.9 L MCV 85.1 MCH 27.1 MCHC 31.8 RDW 17.7 H Plt Count 235 Neut % (Auto) 91.7 H Lymph % (Auto) 1.3 L Hartley % (Auto) 6.8 Eos % (Auto) 0.0 L Baso % (Auto) 0.2 Neut # (Auto) 6600 Lymph # (Auto) 100 L Hartley # (Auto) 500 Eos # (Auto) 0 Baso # (Auto) 0 Sodium 136 L Potassium 3.8 Chloride 93 L Carbon Dioxide 38 H BUN 30 H Creatinine 1.26 H Estimated GFR 54.8 L BUN/Creatinine Ratio 23.8 H Glucose 104 Calcium 8.8 Magnesium 2.0 Total Bilirubin 0.3 AST 19 ALT 11 Alkaline Phosphatase 68 Total Protein 5.9 L Albumin 3.1 L Globulin 2.8 Albumin/Globulin Ratio 1.1 PFSH Medical History Asbestos pleurisy Blindness of right eye Colon polyps Complete heart block GI bleed History of retinal hemorrhage HLD (hyperlipidemia) HTN (hypertension) Prostate CA Surgical History AICD (automatic cardioverter/defibrillator) present H/O prostatectomy History of shoulder surgery History of total bilateral knee replacement Family History (Updated 10/27/20 @ 06:56 by LUIS Billingsley) Mother Diabetes mellitus Congestive heart failure Father Gunshot wound Social History household members: spouse and children Smoking Status: Never smoker alcohol intake: former Assessment & Plan Assessment & Plan narrative: This patient is a 80-year-old male former smoker with history of hypertension, asbestosis, pacemaker and ICD for complete heart block, history of prostate cancer, coronary artery disease, GI bleed x 2, active diverticula bleed, and recent pleural effusion who was admitted for acute on c hronic respiratory failure likely secondary to bilateral pleural effusion most probably from his acute on chronic diastolic heart failure. 1. Respiratory failure, acute on chronic, hypoxic - improved after thoracenesis. Now down to 2-3 liters, occasionally on room air. - likely secondary to chronic lung disease in addition to volume overload. - continue diuresis as noted below. 2. Diastolic congestive heart failure with preserved ejection fraction, acute on chronic, present on admission. exacerbation - continue diuresis with furosemide IV 40 mg BID. 3. Complete heart block, status post pacemaker implantation, acute on chronic, present on admission. Stable. -Patient had third-degree heart block status post AICD. Patient is followed by cardiology Dr. Richmond. -EKG demonstrated sinus rhythm with 100% ventricular pacing. 4. Chronic asbestosis pleurisy, acute on chronic, present on admission. Exacerbation -Patient has history of asbestosis and prior left pleural effusion having un dergone thoracentesis in May 2018. -Continue home Advair Diskus inhaler once daily as needed. 6. Hypertension, acute on chronic, present on admission. Stable. -Continue home spironolactone 50 mg 3 times weekly. And IV Lasix 7. Hyperlipidemia, chronic, present on admission. Presumed stable. -Patient is not currently on cholesterol lowering medication. -Defer follow-up and treatment to primary care provider. 8. History of prostate cancer presumed to be in remission -Status post prostatectomy with variable urinary pattern. -No evidence of recurrence. 9. Valvular heart disease, chronic, present on admission. Stable. -Patient has both moderate aortic stenosis and mitral stenosis on echocardiogram 09/2018. TTE 09/2020 at [facility] showing moderate to severe now. Recommend outpatient follow up after diuresis. 10. History of GI bleed with acute diverticular bleed, resulting in chronic anemia, acute on chronic, present on admission - patient is s/p embolization last month at [facility] in [place]. 11. Bilateral pleural effusions - meets definition for exudative based on LDH, however transudative based on protein. Suspect probable mixed picutre of volume overload and abestos. Code status: DNR Surrogate decision maker: Fran Estrada Son COVID PCR: Negative DVT/VTE prophylaxis: Contraindicated due to repeat GI bleeds and current active diverticula bleed in the setting of mild anemia, SCDs only Estimated length of stay: Less than 2 midnights
[2020-10-28 15:14] LABS: Lactate Dehydrogenase 450 U/L (313-618)
[2020-10-28] MEDS: SENNOSIDES 8.6 MG TABLET 17.2 MG PO (20:45)
[2020-10-29 00:30] VITALS: BP 109/72; PULSE 90; RESP 24; TEMP 36.5; O2SAT 98
[2020-10-29 04:00] VITALS: BP 108/75; PULSE 87; RESP 22; TEMP 36.3; O2SAT 94
[2020-10-29] MEDS: PIPERACILLIN/TAZO 3.375 GM in SODIUM CHLORIDE 0.9% 100 ML 25 ML IV (05:55)
[2020-10-29] MEDS: PANTOPRAZOLE DR 20 MG TABLET PO (05:55)
--- NOTE | 2020-10-29 06:48 | PC.NURSE ---
Pt able to maintain sats >90% while awake off oxygen; patient cannot maintain sats >90% while asleep and is requiring at minimum 1 L O2 NC.
[2020-10-29 07:18] LABS: Add Manual Diff / Slide Review NO; Basophils Absolute Auto 0 /uL (0-100); Eosinophils Absolute Auto 0 /uL (0-450); Eosinophils Percent Auto 0.2 % (2-4); Hematocrit 25.7 % (41-53); Hemoglobin 8.1 g/dL (13.5-17.5); Lymphocytes Absolute Auto 100 /uL (1100-4500); Mean Corpuscular HGB Conc 31.4 % (30-36); Mean Corpuscular Hemoglobin 26.7 PG (26-34); Mean Corpuscular Volume 85.2 fL (80-100); Monocytes Absolute Auto 500 /uL (0-900); Monocytes Percent Auto 6.2 % (3-14); Neutrophils Absolute Auto 6800 /uL (1500-7000); Neutrophils Percent Auto 91.6 % (50-75); Platelet Count 241 X10^3/uL (150-400); Red Blood Cell Count 3.01 X10^6/uL (4.5-5.9); White Blood Cell Count 7.4 X10^3/uL (4.5-11.0)
[2020-10-29 07:33] LABS: Alanine Aminotransferase 14 IU/L (<50); Albumin 3.1 g/dL (3.5-5.0); Alkaline Phosphatase 61 U/L (38-126); Aspartate Aminotransferase 28 IU/L (17-59); BUN Creatinine Ratio 30.6 (6-22); Bilirubin Total 0.3 mg/dL (0.2-1.3); Blood Urea Nitrogen 33 mg/dL (9-20); Calcium 8.7 mg/dL (8.4-10.2); Carbon Dioxide 39 mmol/L (22-32); Chloride 95 mmol/L (98-107); Estimated Glomerular Filt Rate > 60.0 mL/min (>60); Globulin 3.1 g/dL (1.7-4.1); Glucose 92 mg/dL (80-110); HEMOLYSIS 22 (0-50); Magnesium 2.1 mg/dL (1.6-2.3); Potassium 3.2 mmol/L (3.4-5.1); Sodium 137 mmol/L (137-145); Total Protein 6.2 g/dL (6.3-8.2)
[2020-10-29 08:00] VITALS: BP 106/91; PULSE 90; RESP 20; TEMP 36.1; O2SAT 97
--- NOTE | 2020-10-29 08:11 | PM.DS.1 ---
History of Present Illness History of Present Illness Date Patient Seen: 10/29/20 Time Patient Seen: 08:11 Chief complaint: difficulty breathing for two days Narrative: Per Radha Bermudez, RADIO ELECTRONICS TECHNICIAN-: Patient is a 80-year-old male former smoker with history of hypertension, asbestosis, pacemaker and ICD for complete heart block, history of prostate cancer, coronary artery disease, GI bleed and former pleural effusion presents with family friend and a chief complaint of increasing work of breathing and shortness of breath the past 2 days. He is not dizzy or lightheaded but has become generally weak. He admits to an ongoing dry and hacking cough. He has had no fever or chills. His shortness of breath is worse with exertion and lying flat seems to improve with rest. He denies any significant chest pain, nausea, vomiting or diarrhea. He was recently seen by myself and was quite ill with large, upper GI bleed resulting in the need for transfer, his evaluation including both upper and lower scope notes active diverticular bleeding which required right colic artery coil embolization with Interventional Radiology. He required multiple units of red cell transfusion. He developed increasing shortness of breath which required supplemental oxygen and imaging noted bilateral pleural effusions. This was thought to be due to large volume overload, he did require thoracentesis. Patient upon admit temp is stable at 98.4, mild hypertension 149/76, HR 90, slightly tachypneic are 26, O2 saturation 100% on 15 L nasal cannula. Patient demonstrates acute respiratory failure with hypercapnia and hypoxia, with metabolic alkalosis as evidence by ABGs: PH 7.50, pCO2 57.4, PO2 234, HC03 45, total CO2 46, base excess 21. Patient was assessed for admit in the ED where he was found hunched over bedside table Patient's serum chloride 90, BUN 26, HC03 40, GFR 56.3. Patient with chronic anemia secondary to active diverticular bleeding as evidence by hgb 9.0, HCT 29. RBC 3.38. Patient's D-dimer was 2929, Lactate was within normal limits, procalcitonin within normal limits, CURB- 65 score of 2, and a sofa score of 2, BNP was elevated at 2890. Troponin 1#. 0.016 within normal limits. Chest CT:No PE was found but was positive for a large right pleural effusion with patchy areas of ground-glass opacity in the right upper lobe consistent with possible pneumonia. Due to noted airspace disease, asbestos pleurisy, pulmonary edema, and CO2 retention. He will require hospitalization for ultrasound-guided therapeutic thoracentesis, antibiotics, diuresis and consultation with his primary care provider to establish a long-term plan as an outpatient management. Discharge Providers Provider Date of admission: 10/27/20 05:00 Discharge Date: 10/29/20 Primary care physician: Jaime Burns MD Consults: 10/27/20 00:46 Consult to Respiratory Therapy Evaluate & Treat Comment: Physician Instructions: Evaluate and treat 10/27/20 05:18 Consult to Respiratory Therapy Evaluate & Treat Comment: Pleural effusion/pneumonia/asbestos pleurisy Physician Instructions: Evaluate and treat Discharge provider: Raphael Gilbert DO Summary Hospital Course Discharge Diagnosis: Please see hospital course by problem list noted below Hospital Course: This patient is a 80-year-old male former smoker with history of hypertension, asbestosis, pacemaker and ICD for complete heart block, history of prostate cancer, coronary artery disease, GI bleed x 2, active diverticula bleed, and recent pleural effusion who was admitted for acute on chronic respiratory failure likely secondary to bilateral pleural effusion most probably from his acute on chronic diastolic heart failure. 1. Respiratory failure, acute on chronic, hypoxic - improved after thoracenesis. Now down to 2-3 liters, occasionally on room air. He was additionally volume overloaded from his chronic diastolic heart failure. He improved with IV lasix and felt well enough to go home. He had some lower extremity and still needs some fluid removed, though this can be attempted as an outpatient with 80 mg PO BID. Recommend promt PMD and cardiology follow up for further adjustment. - also complicated by chronic lung disease - continue diuresis as noted below. 2. Diastolic congestive heart failure with preserved ejection fraction, acute on chronic, present on admission. exacerbation - continued diuresis with furosemide IV 40 mg BID as well as pleural effusion. - recommend prompt evaluation with outpatient cardiology given TTE showing moderate to severe aortic stenosis. - TTE 09/2020 at [facility] showing EF 65%. 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 3. Complete heart block, status post pacemaker implantation, acute on chronic, present on admission. Stable. -Patient had third-degree heart block status post AICD. Patient is followed by cardiology Dr. Richmond. -EKG demonstrated sinus rhythm with 100% ventricular pacing. 4. Chronic asbestosis pleurisy, acute on chronic, present on admission. Exacerbation -Patient has history of asbestosis and prior left pleural effusion having undergone thoracentesis in May 2018. -Continue home Advair Diskus inhaler 6. Hypertension, acute on chronic, present on admission. Stable. -Continue home spironolactone 50 mg 3 times weekly and added lasix as noted above. 7. Hyperlipidemia, chronic, present on admission. Presumed stable. -Patient is not currently on cholesterol lowering medication. -Defer follow-up and treatment to primary care provider. 8. History of prostate cancer presumed to be in remission -Status post prostatectomy with variable urinary pattern. -No evidence of recurrence. 9. Valvular heart disease, chronic, present on admission. Stable. -Patient has both moderate aortic stenosis and mitral stenosis on echocardiogram 09/2018. TTE 09/2020 at [facility] showing moderate to severe now. Recommend outpatient follow up after continued diuresis. 10. History of GI bleed with acute diverticular bleed, resulting in chronic anemia, acute on chronic, present on admission - patient is s/p embolization last month at [facility] in [place]. 11. Bilateral pleural effusions - meets definition for exudative based on LDH, however transudative based on protein. Suspect probable mixed picutre of volume overload and abestosis. - Cytology already returned back negative for malignanct cell. Code status: DNR Surrogate decision maker: Fran Gonsalves Time Spent with Patient Time spent: Greater than 30 minutes Exam Vital Signs (past 8 hours): - 10/29/20 00:30 10/29/20 04:00 Temperature 97.7 F 97.4 F L Pulse Rate 90 87 Respiratory Rate 24 22 Blood Pressure 109/72 108/75 Pulse Oximetry 98 94 Oxygen Delivery Method Nasal Cannula Oxygen Flow Rate 3 Narrative Exam Narrative: GENERAL: Well-developed male, patient appears older than stated age. Chronically ill, comfortable. no acute distress. HEAD: Atraumatic. Normocephalic. EYES: Pupils equal round and reactive. Extraocular motions intact. No scleral icterus. No injection or drainage. ENT: Poor dentition throughout, moist mucous membranes Nose without bleeding, purulent drainage. Throat without erythema, tonsillar hypertrophy or exudate. Airway patent. NECK: Trachea midline. Non tender CARDIOVASCULAR: Regular rate and rhythm without murmurs, gallops, or rubs. RESPIRATORY: Decreased breath sounds bilaterally with prolonged expiratory phase, increased work of breathing, tachypnea, orthopnea, occasional dry cough. GASTROINTESTINAL: Abdomen soft, non-tender, nondistended. EXTREMITIES: 2+ pitting edema bilateral lower extremities. BACK: Nontender without deformity or crepitance. No flank tenderness. NEURO: AOx3. SKIN: No rash or erythema of visible areas Objective Labs Result Diagrams: 10/29/20 06:47 10/29/20 06:47 Labs: Laboratory Results - last 24 hr 10/28/20 10/28/20 10/29/20 06:51 06:51 06:47 WBC 7.4 RBC 3.01 L Hgb 8.1 L Hct 25.7 L MCV 85.2 MCH 26.7 MCHC 31.4 RDW 18.0 H Plt Count 241 Neut % (Auto) 91.6 H Lymph % (Auto) 2.0 L [place] % (Auto) 6.2 Eos % (Auto) 0.2 L Baso % (Auto) 0.0 Neut # (Auto) 6800 Lymph # (Auto) 100 L [place] # (Auto) 500 Eos # (Auto) 0 Baso # (Auto) 0 Sodium 136 L Potassium 3.8 Chloride 93 L Carbon Dioxide 38 H BUN 30 H Creatinine 1.26 H Estimated GFR 54.8 L BUN/Creatinine Ratio 23.8 H Glucose 104 Calcium 8.8 Magnesium 2.0 Total Bilirubin 0.3 AST 19 ALT 11 Alkaline Phosphatase 68 Lactate Dehydrogenase 450 Total Protein 5.9 L Albumin 3.1 L Globulin 2.8 Albumin/Globulin Ratio 1.1 10/29/20 06:47 WBC RBC Hgb Hct MCV MCH MCHC RDW Plt Count Neut % (Auto) Lymph % (Auto) [place] % (Auto) Eos % (Auto) Baso % (Auto) Neut # (Auto) Lymph # (Auto) [place] # (Auto) Eos # (Auto) Baso # (Auto) Sodium 137 Potassium 3.2 L Chloride 95 L Carbon Dioxide 39 H BUN 33 H Creatinine 1.08 Estimated GFR > 60.0 BUN/Creatinine Ratio 30.6 H Glucose 92 Calcium 8.7 Magnesium 2.1 Total Bilirubin 0.3 AST 28 ALT 14 Alkaline Phosphatase 61 Lactate Dehydrogenase Total Protein 6.2 L Albumin 3.1 L Globulin 3.1 Albumin/Globulin Ratio 1.0 [facility] Medical History Asbestos pleurisy Blindness of right eye Colon polyps Complete heart block GI bleed History of retinal hemorrhage HLD (hyperlipidemia) HTN (hypertension) Prostate CA Surgical History AICD (automatic cardioverter/defibrillator) present H/O prostatectomy History of shoulder surgery History of total bilateral knee replacement Family History (Updated 10/27/20 @ 06:56 by LUIS Billingsley) Mother Diabetes mellitus Congestive heart failure Father Gunshot wound Social History household members: spouse and children Smoking Status: Never smoker alcohol intake: former Discharge Plan Discharge Plan Patient Disposition: Home Provider Discharge Comment: You were admitted to the hospital with shortness of breath due to a pleural effusion. This was drained and your symptoms improved. You still need a bit of oxygen, and you wished to go home but I still think you have a bit of fluid to take off and this may be able to be done at home. 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). Discharge orders & Medications Prescriptions: Continued multivitamin Tablet 1 tab PO DAILY Qty: 0 RF: 0 fluticasone propion-salmeterol [Advair Diskus] 100 MCG/50 MCG blister with device 1 puff Inhalation PRN Qty: 0 RF: 0 famotidine 20 mg tablet 20 mg PO DAILY Qty: 90 RF: 0 terazosin 2 mg capsule 2 mg PO DAILY RF: 0 aspirin 81 mg tablet,delayed release (DR/EC) 81 mg PO DAILY Qty: 30 RF: 0 polyethylene glycol 3350 17 gram Powder In Packet 17 gm PO DAILY Qty: 30 RF: 0 docusate sodium [DOK] 100 mg Capsule 100 mg PO BID Qty: 60 RF: 0 promethazine-codeine 6.25-10 mg/5 mL Syrup 5 ml PO PRN PRN (Reason: Cough) RF: 0 spironolactone 50 mg Tablet 50 mg PO MOWEFR RF: 0 clobetasol 0.05 % Cream 1 applic Topical DIRECTED RF: 0 oxycodone-acetaminophen 5-325 mg tablet 1 tab PO Q6H PRN (Reason: PAIN) RF: 0 brimonidine 0.2 % drops 1 drp ophthalmic (eye) TID RF: 0 Changed furosemide 40 mg Tablet 80 mg PO BID 30 Days Qty: 120 RF: 0 Discontinued aspirin 325 mg Tablet 325 mg PO DAILY RF: 0 Follow up/Referrals: Jaime Burns MD [Primary Care Provider] - Diet/Activity/Treatments Diet: Diet as Tolerated and Low-sodium Diet comment: No more than 1.2 L fluid daily. Activity: As toleratede Visit Report/Discharge Packet Instructions: DI for Heart Failure, DI for Pleural Effusion Discharge Data Primary Care Provider: Jaime Burns
--- NOTE | 2020-10-29 08:33 | CM.DANOTE ---
Addendum entered by Cammy Rowe LPN 10/29/20 08:52: RJ Avalos, caring for pt today, has clarified with pt that oxygen was delivered to his home Wednesday 10/25. His son is on his way to pick pt up now. Original Note: Discharge Planning/Care Management DCP: assessment: case received, EMR reviewed, d/c order noted. Met now with pt and introduced self and role. Pt is up independently in the room with a fww and preparing to go home. He says he understands he will need oxygen at home and RT will see him today to facilitate same. He confirms he plans to followup with his PCP: Dr. 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 Dr. Gilbert notes that pt expressed strong desire for a d/c today and his d/c specific orders reflect same. IMM #1 signed by pt on 10/28 so no need to present another one. P: home today, likely with 02. His son Fabio will be picking him up, per pt. Advanced directive, confirm from FAMILY Start: 10/27/20 12:56 Freq: Q24H Status: Complete Protocol: Document 10/27/20 12:56 AGW (Rec: 10/27/20 18:44 AGW [id number]) Advance Directive, confirm on record Time 18:00 Person contacted patient Copy received No Document 10/28/20 12:56 CLP (Rec: 10/28/20 13:36 CLP [id number]) Advance Directive, confirm on record Time 18:00 Person contacted patient Copy received No Time 13:36 Person contacted patient Copy received No CM Discharge Assessment Start: 10/29/20 08:32 Freq: Status: Active Protocol: Document 10/29/20 08:32 ITV (Rec: 10/29/20 08:33 ITV [id number]) Discharge Planning Assessment Advance Directives? Yes Advance Directives on File Yes History Provided By Patient,Medical Record Household Members spouse,children Independent with ADL's Yes Is patient alert and oriented? Yes Comment Discharge Plan Home Community Services Oxygen Therapy
[2020-10-29] MEDS: OXYCODONE IR 5 MG TABLET PO (08:39)
[2020-10-29] MEDS: ASPIRIN EC 81 MG TABLET PO (08:42)
[2020-10-29] MEDS: predniSONE 20 MG TABLET 50 MG PO (08:42)
[2020-10-29] MEDS: FUROSEMIDE 40 MG/4 ML VIAL IV (08:42)
[2020-10-29 09:23] VITALS: O2SAT 96
[2020-10-29 09:37] VITALS: PULSE 89; RESP 18; O2SAT 99
[2020-10-29] MEDS: ALBUTEROL 2.5 MG/3 ML NEB (ADULT) INH (09:37)
[2020-10-29 09:41] VITALS: PULSE 89; RESP 18; O2SAT 99
[2020-10-29] MEDS: BUDESONIDE 0.5 MG/2 ML NEB INH (09:41)
--- NOTE | 2020-10-29 11:45 | PC.NURSE ---
Pt A&Ox3, SOB with exertion, calling appropriately. Ambulating steady this a.m. with FWW. Edema +3 to B feet. LS Course throughout and dyspnea/hypoxia with exertion. PO intake is fair. Adhering to fluid restriction. MD at bedside evaluating patient and cleared today for discharge home today with son. Pt's son and patient verbalize understanding and agreement of discharge plan to follow up with PCP early next week and production administrator as soon as he is able. Per son production administrator appointment made. Pt verbalizes understanding of all discharge medications, and diet. Also states he has always taken aspirin and drinks plenty of fluid based provider's instruction. Provided education to patient about CHF, and medications as well as fluid restriction. RN escorted patient via w/ch to private vehicle with son this a.m. all of belongings with him.
== END 2020-10-29 08:00 | disposition home or self-care (01) | DRG 291 ==
LOC: ED 04:44 → AC 09:30
PROVIDERS: Internal Medicine; Admitting Provider Nurse Practitioner Family; Emergency Provider Emergency Medicine; PCP Family Medicine; Referring Provider Emergency Medicine; Visit Provider Nurse Practitioner Family
DX: I11.0 Hypertensive heart disease with heart failure (principal); J96.21 Acute and chronic respiratory failure with hypoxia; J96.22 Acute and chronic respiratory failure with hypercapnia; E87.3 Alkalosis; I44.2 Atrioventricular block, complete; J90 Pleural effusion, not elsewhere classified; I50.33 Acute on chronic diastolic (congestive) heart failure; J92.0 Pleural plaque with presence of asbestos; E78.5 Hyperlipidemia, unspecified; D50.0 Iron deficiency anemia secondary to blood loss (chronic); I08.0 Rheumatic disorders of both mitral and aortic valves; I25.10 Atherosclerotic heart disease of native coronary artery without angina pectoris; Z20.822 Contact with and (suspected) exposure to COVID-19; Z95.810 Presence of automatic (implantable) cardiac defibrillator; Z66 Do not resuscitate; Z87.891 Personal history of nicotine dependence
CPT/HCPCS: 32555; 36415; 36600; 71045; 71275; 80053; 82550; 82805; 82945; 83605; 83615; 83735; 83880; 83986; 84145; 84157; 84484; 85025; 85379; 85610; 86140; 87040; 87070; 87077; 87205; 87635; 89051; 93005; 93010; 94640; 94760; 94762; 96365; 96375; 99285; C9803; J1940; J2543; J2930; J7613; Q9967